=== PATIENT | male | born 1955 | race Caucasian/White ===

== ENCOUNTER 2017-12-18 16:56 | Emergency (ER) | payer MEDICARE, OTHER ==
[~2017-12-18] VITALS: Ht 182.9 cm; Wt 97.1 kg
[~2017-12-18 16:56] MED LIST: ACHD5005 PO; ASEN5TAB7 PO; ASP81TEC PO; ASPI-999 PO; ATOR20TA66 PO; ATOR40TA PO; BACL10TA PO; CLOT15CR6 TOP; DEXL60CA5 PO; DIAZ-345 PO; DIAZ10TA3 PO; GABA-488 PO; GLIM1TAB PO; GLIM4TAB PO; IRON PO; LAMO100T PO; LAMO100T69 PO; LISI10TA2 PO; LISI1TAB PO; METF-380 PO; METF10002 PO; METO10TA3 PO; MULT-517 PO; OMEP20CA12 PO; OMEP20CA6 PO; OMEP20TA2 PO; ONDA8TAB6 PO; PARO20TA4 PO; PARO40TA2 PO; PARO40TA3 PO; RT-FLOV110 INH; SAXA1TBM3 PO; SAXA5TAB PO; SCR1T1 PO; VILA40TA PO; VITA1CAP PO
[2017-12-18] MEDS ORDERED: SULF-222 (17:09)
[2017-12-18] MEDS ORDERED: TOLT2TAB5 (17:09)
--- NOTE | 2017-12-18 17:11 | ED General ---
General Chief Complaint: General Problems/Pain Stated Complaint: MONTES,RT EYE PAIN Nursing Triage Note: c/o R eye pain, headache and R sided chest pain Nursing Sepsis Screen: No Definite Risk Source of Information: Patient Exam Limitations: No Limitations History of Present Illness Date Seen by Provider: December 18, 2017 Time Seen by Provider: 17:08 Initial Comments o ER per EMS with reports of headache, right sided facial and eye pain, area of the right eye appears bloodshot that he just noticed this morning, right chest pain, right abdomen pain. The symptoms of been ongoing for about 4-5 days. No fevers or chills. He does report diffuse body aches. He is being seen by Dr. Jang for some urinary incontinence issues and was started on Bactrim recently for a urinary tract infection, he is still on that. He's had a persistent cough since October of this year after being diagnosed with influenza. He is concerned that these symptoms may be a result of reaction to his Bactrim. Timing/Duration: 1-2 Days Severity: Moderate Associated Systoms: Cough Allergies and Home Medications Allergies Coded Allergies: No Known Drug Allergies (Unverified , 03/17/16) Home Medications Atorvastatin Calcium 20 Mg Tablet, 20 MG PO DAILY, (Reported) Diazepam 10 Mg Tablet, 10 MG PO BID PRN for ANXIETY, (Reported) Gabapentin 300 Mg Capsule, 300 MG PO BID, (Reported) Glimepiride 4 Mg Tablet, 4 MG PO BID, (Reported) LAST FILLED 01/23/16 #60 Lamotrigine 100 Mg Tablet, 100 MG PO BID, (Reported) Lisinopril 10 Mg Tablet, 10 MG PO BID, (Reported) Metformin HCl 1,000 Mg Tablet, 1,000 MG PO BID, (Reported) Omeprazole 20 Mg Capsule.dr, 20 MG PO DAILY, (Reported) Paroxetine HCl 40 Mg Tablet, 40 MG PO DAILY, (Reported) Patient Home Medication List Home Medication List Reviewed: Yes Review of Systems Constitutional: see HPI EENTM: see HPI Respiratory: see HPI, cough, short of breath Cardiovascular: no symptoms reported Genitourinary: no symptoms reported Musculoskeletal: no symptoms reported Skin: no symptoms reported Psychiatric/Neurological: No Symptoms Reported Hematologic/Lymphatic: No Symptoms Reported Immunological/Allergic: no symptoms reported Past Lnllmfz-Vfqkhf-Quwlhb Hx Patient Social History Alcohol Use: Denies Use Recreational Drug Use: No Drug of Choice: 12YRS AGO-COCAINE AND MARIJUANA Smoking Status: Never a Smoker Recent Foreign Travel: No Contact w/Someone Who Travel: No Recent Infectious Disease Expo: No Recent Hopitalizations: No Immunizations Up To Date Tetanus Booster (TDap): Unknown PED Vaccines UTD: Yes Date of Pneumonia Vaccine: Jul 17, 2014 Date of Influenza Vaccine: May 08, 2015 Seasonal Allergies Seasonal Allergies: No Past Medical History Surgeries: Yes (ORAL SURGERY-PULLED 3 TEETH, ) Gallbladder, Tonsillectomy Respiratory: No Cardiac: Yes Hypertension, Syncope Neurological: Yes (HX OF 2 EPISODES OF BLACKING OUT-POSSIBLE SEIZURES 2012) Reproductive Disorders: No Sexually Transmitted Disease: No HIV/AIDS: No Prostate Problems, Kidney Stones Gastrointestinal: Yes Gastroesophageal Reflux Musculoskeletal: Yes (SPINAL STENOSIS) Endocrine: Yes Diabetes, 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 Hearing Impairment: Denies Cancer: Yes Prostate Psychosocial: Yes Anxiety, Depression Integumentary: No Blood Disorders: Yes (HX-TOOK IRON) Adverse Reaction/Blood Tranf: No Family Medical History Cardiovascular disease G8 SISTER Completed stroke 19 FATHER Diabetes mellitus 19 FATHER 19 MOTHER G8 SISTER Hypercholesterolemia G8 BROTHER Hypertension 19 FATHER 19 MOTHER G8 BROTHER Myocardial infarction 19 MOTHER Prostate cancer 19 FATHER Thyroid disease 19 MOTHER G8 SISTER No Pertinent Family Hx Physical Exam Vital Signs Vital Signs - First Documented 12/18/17 17:02 Temp 97.5 Pulse 77 Resp 18 B/P (MAP) 132/73 (92) Pulse Ox 99 Capillary Refill : Less Than 3 Seconds General Appearance: No Apparent Distress, WD/WN Eyes: Left Eye Other (There is no pain in the right eye, there is a small subconjunctival hemorrhage and what appears to be an inflamed pterygium that does not cross the limbus at the medial aspect of the right eye. No hyphema. Extraocular muscles are intact, pupils are equal round and reactive. No facial vesicles or lesions to suggest herpes zoster infection.); Bilateral Eye PERRL, Bilateral Eye EOMI HEENT: PERRL/EOMI, TMs Normal Neck: Full Range of Motion, Normal Inspection Respiratory: Normal Breath Sounds, No Accessory Muscle Use, No Respiratory Distress Cardiovascular: Regular Rate, Rhythm, Normal Peripheral Pulses Gastrointestinal: Normal Bowel Sounds, Non Tender, Soft Extremity: Normal Capillary Refill, Normal Inspection Neurologic/Psychiatric: Alert, Oriented x3, No Motor/Sensory Deficits Skin: Normal Color, Warm/Dry Progress/Results/Core Measures Suspected Sepsis Recent Fever Within 48 Hours: No Infection Criteria Present: None New/Unexplained Altered Menta: No Sepsis Screen: No Definite Risk SIRS Temperature:97.5 Pulse: 77 Respiratory Rate: 18 Laboratory Tests 12/18/17 17:29: White Blood Count 7.8 Blood Pressure 132 /73 Mean: 92 Laboratory Tests 12/18/17 17:29: Creatinine 0.92, Platelet Count 260, Total Bilirubin 0.4 Results/Orders Lab Results Laboratory Tests Test 12/18/17 17:20 12/18/17 17:29 Range/Units Urine Color YELLOW Urine Clarity CLEAR Urine pH 6 5-9 Urine Specific [place] 1.010 L 1.016-1.022 Urine Protein NEGATIVE NEGATIVE Urine Glucose (UA) NEGATIVE NEGATIVE Urine Ketones NEGATIVE NEGATIVE Urine Nitrite NEGATIVE NEGATIVE Urine Bilirubin NEGATIVE NEGATIVE Urine Urobilinogen NORMAL NORMAL MG/DL Urine Leukocyte Esterase NEGATIVE NEGATIVE Urine RBC (Auto) 1+ H NEGATIVE Urine RBC NONE /HPF Urine WBC NONE /HPF Urine Crystals NONE /LPF Urine Bacteria NEGATIVE /HPF Urine Casts NONE /LPF Urine Mucus NEGATIVE /LPF Urine Culture Indicated NO White Blood Count 7.8 4.3-11.0 10^3/uL Red Blood Count 4.49 4.35-5.85 10^6/uL Hemoglobin 9.9 L 13.3-17.7 G/DL Hematocrit 32 L 40-54 % Mean Corpuscular Volume 71 L 80-99 FL Mean Corpuscular Hemoglobin 22 L 25-34 PG Mean Corpuscular Hemoglobin Concent 31 L 32-36 G/DL Red Cell Distribution Width 17.8 H 10.0-14.5 % Platelet Count 260 130-400 10^3/uL Mean Platelet Volume 10.7 H 7.4-10.4 FL Neutrophils (%) (Auto) 73 42-75 % Lymphocytes (%) (Auto) 15 12-44 % Monocytes (%) (Auto) 9 0-12 % Eosinophils (%) (Auto) 2 0-10 % Basophils (%) (Auto) 1 0-10 % Neutrophils # (Auto) 5.7 1.8-7.8 X 10^3 Lymphocytes # (Auto) 1.2 1.0-4.0 X 10^3 Monocytes # (Auto) 0.7 0.0-1.0 X 10^3 Eosinophils # (Auto) 0.2 0.0-0.3 10^3/uL Basophils # (Auto) 0.0 0.0-0.1 10^3/uL Sodium Level 136 135-145 MMOL/L Potassium Level 4.3 3.6-5.0 MMOL/L Chloride Level 106 98-107 MMOL/L Carbon Dioxide Level 20 L 21-32 MMOL/L Anion Gap 10 5-14 MMOL/L Blood Urea Nitrogen 15 7-18 MG/DL Creatinine 0.92 0.60-1.30 MG/DL Estimat Glomerular Filtration Rate > 60 BUN/Creatinine Ratio 16 Glucose Level 168 H 70-105 MG/DL Calcium Level 9.6 8.5-10.1 MG/DL Total Bilirubin 0.4 0.1-1.0 MG/DL Aspartate Amino Transf (AST/SGOT) 36 H 5-34 U/L Alanine Aminotransferase (ALT/SGPT) 40 0-55 U/L Alkaline Phosphatase 112 40-136 U/L Total Protein 6.9 6.4-8.2 GM/DL Albumin 3.9 3.2-4.5 GM/DL My Orders Orders - INESSA NEWTON [employer] Cbc With Automated Diff (12/18/17 17:06) Comprehensive Metabolic Panel (12/18/17 17:06) Ua Culture If Indicated (12/18/17 17:06) Chest Pa/Lat (2 View) (12/18/17 17:06) Tetracaine 0.5% Ophth Gala Sdv (Tetracai (12/18/17 17:15) Vital Signs/I&O 12/18/17 17:02 Temp 97.5 Pulse 77 Resp 18 B/P (MAP) 132/73 (92) Pulse Ox 99 Capillary Refill : Less Than 3 Seconds Blood Pressure Mean: 92 Departure Communication (Admissions) The right intraocular pressure is 14 and the left is 22. Impression Primary Impression: Inflamed pterygium Additional Impression: Right sided pain of chest and abdomen Disposition: HOME, SELF-CARE Condition: Stable Departure-Patient Inst. Decision time for Depature: 18:13 Referrals: BRY ROMERO DO (PCP) Primary Care Physician CINDY RUSH (Family) Primary Care Physician Patient Instructions: Pterygium (DC) Add. Discharge Instructions: 1. Follow-up with your eye doctor this week for recheck. Return to ER for any worsening or recurrent symptoms. Take the eyedrops as directed for no longer than 4 days starting tomorrow. All discharge instructions reviewed with patient and/or family. Voiced understanding. Scripts Ketorolac Tromethamine (Acular) 5 Ml Drops 1 DROP OP BID, #1 DROPS Prov: INESSA NEWTON APRN 12/18/17 Copy Copies To 1: JENNIFER JANG MD, PETER J APRN December 18, 2017 17:11
[2017-12-18] MEDS ORDERED: TETRACAINE 0.5% OPHTH SOLN 4 ML BTL (SINGLE DOSE ONLY) OP ONE (17:15)
[2017-12-18 17:39] LABS: BASOPHILS % (AUTO) 1 % (0-10); EOSINOPHILS # (AUTO) 0.2 10^3/uL (0.0-0.3); EOSINOPHILS % (AUTO) 2 % (0-10); HEMATOCRIT 32 % (40-54); HEMOGLOBIN 9.9 G/DL (13.3-17.7); LYMPHOCYTES # (AUTO) 1.2 X 10^3 (1.0-4.0); LYMPHOCYTES % (AUTO) 15 % (12-44); MEAN CORPUSCULAR HEMOGLOBIN 22 PG (25-34); MEAN CORPUSCULAR HGB CONC 31 G/DL (32-36); MEAN CORPUSCULAR VOLUME 71 FL (80-99); MEAN PLATELET VOLUME 10.7 FL (7.4-10.4); MONOCYTES # (AUTO) 0.7 X 10^3 (0.0-1.0); MONOCYTES % (AUTO) 9 % (0-12); NEUTROPHILS # (AUTO) 5.7 X 10^3 (1.8-7.8); NEUTROPHILS % (AUTO) 73 % (42-75); PLATELET COUNT 260 10^3/uL (130-400); RED BLOOD COUNT 4.49 10^6/uL (4.35-5.85); RED CELL DISTRIBUTION WIDTH 17.8 % (10.0-14.5); WHITE BLOOD COUNT 7.8 10^3/uL (4.3-11.0)
[2017-12-18 17:39] LABS: BILIRUBIN,URINE NEGATIVE (NEGATIVE); CLARITY,URINE CLEAR; COLOR,URINE YELLOW; GLUCOSE, URINE (UA) NEGATIVE (NEGATIVE); KETONES,URINE NEGATIVE (NEGATIVE); LEUKOCYTE ESTERASE ,URINE NEGATIVE (NEGATIVE); NITRITE,URINE NEGATIVE (NEGATIVE); PH,URINE 6 (5-9); PROTEIN,URINE NEGATIVE (NEGATIVE); UROBILINOGEN,URINE NORMAL (NORMAL)
[2017-12-18 17:46] LABS: BACTERIA,URINE NEGATIVE /HPF
[2017-12-18 17:55] LABS: ALANINE AMINOTRANSFERASE 40 U/L (0-55); ALBUMIN 3.9 GM/DL (3.2-4.5); ALKALINE PHOSPHATASE 112 U/L (40-136); BILIRUBIN,TOTAL 0.4 MG/DL (0.1-1.0); BUN/CREATININE RATIO 16; CALCIUM 9.6 MG/DL (8.5-10.1); CARBON DIOXIDE 20 MMOL/L (21-32); CHLORIDE 106 MMOL/L (98-107); CREATININE SERUM 0.92 MG/DL (0.60-1.30); GFR ESTIMATED > 60; GLUCOSE 168 MG/DL (70-105); POTASSIUM 4.3 MMOL/L (3.6-5.0); SODIUM 136 MMOL/L (135-145); TOTAL PROTEIN 6.9 GM/DL (6.4-8.2)
--- NOTE | 2017-12-18 17:58 | Diagnostic Imaging Report ---
INDICATION: Right-sided chest pain. EXAMINATION: PA and lateral chest. FINDINGS: Heart size and pulmonary vascularity are normal. Lungs are clear. There are no effusions or pneumothoraces. IMPRESSION: Negative chest. Dictated by: Dictated on workstation # [id number]
[2017-12-18] MEDS ORDERED: KETO5DRO OP (18:15)
[2017-12-18 18:23] VITALS: BP 122/77
== END 2017-12-18 18:24 | disposition home or self-care (01) ==
LOC: EDUNIT# 16:56 → ER 16:57
DX: H11.002 Unspecified pterygium of left eye (principal); R07.89 Other chest pain; R10.9 Unspecified abdominal pain; N39.0 Urinary tract infection, site not specified; I10 Essential (primary) hypertension; K21.9 Gastro-esophageal reflux disease without esophagitis; F41.9 Anxiety disorder, unspecified; F32.9 Major depressive disorder, single episode, unspecified; Z82.49 Family history of ischemic heart disease and other diseases of the circulatory system; Z87.442 Personal history of urinary calculi; Z79.84 Long term (current) use of oral hypoglycemic drugs; Z90.89 Acquired absence of other organs; Z85.46 Personal history of malignant neoplasm of prostate; Z80.8 Family history of malignant neoplasm of other organs or systems
CPT/HCPCS: 36415; 71046; 80053; 81000; 85025; 99283

== ENCOUNTER → 2018-01-09 | Outpatient (CLI) | payer MEDICARE, OTHER ==
[~2018-01-09] MED LIST changes: +KETO5DRO OP; +SULF-222; +TOLT2TAB5
--- NOTE | 2018-01-09 11:37 | Diagnostic Imaging Report ---
PROCEDURE: US abdomen complete. TECHNIQUE: Multiple real-time grayscale images were obtained over the abdomen in various projections. INDICATION: Abdominal pain and possible abdominal mass. COMPARISON: None. FINDINGS: There is diffuse hepatic steatosis. No focal hepatic mass is seen. The common bile duct is not well demonstrated however no gross biliary dilatation is suspected. The pancreas is not well seen. The gallbladder is absent. The spleen measures 12.4 cm in length and appears unremarkable. The right kidney measures 10.6 cm in length and the left kidney measures 11.9 cm in length. Both kidneys appear unremarkable. The abdominal aorta is not well visualized. Inferior vena cava not well seen. There is no ascites or sonographic Zabala's sign. No evidence of hernia or abdominal mass is suspected. IMPRESSION: 1. Diffuse hepatic steatosis. 2. Status post cholecystectomy. 3. No additional abnormality is seen. Abdominal aorta, pancreas, and common bile ducts are not well visualized. 4. No abnormality to account for clinical abdominal mass. Dictated by: Dictated on workstation # [id number]
== END ==
LOC: RAD 08:16
PROVIDERS: ATTEND Nurse Practitioner Family
DX: K76.0 Fatty (change of) liver, not elsewhere classified (principal); R19.09 Other intra-abdominal and pelvic swelling, mass and lump; Z90.49 Acquired absence of other specified parts of digestive tract
CPT/HCPCS: 76700

== ENCOUNTER 2018-05-01 11:39 | Outpatient (RCR) | payer MEDICARE, OTHER ==
[2018-03-22 14:44] LABS: BASOPHILS % (AUTO) 1 % (0-10); EOSINOPHILS % (AUTO) 0 % (0-10); HEMATOCRIT 40 % (40-54); HEMOGLOBIN 12.6 G/DL (13.3-17.7); LYMPHOCYTES # (AUTO) 1.6 X 10^3 (1.0-4.0); LYMPHOCYTES % (AUTO) 31 % (12-44); MEAN CORPUSCULAR HEMOGLOBIN 23 PG (25-34); MEAN CORPUSCULAR HGB CONC 31 G/DL (32-36); MEAN CORPUSCULAR VOLUME 74 FL (80-99); MEAN PLATELET VOLUME 10.4 FL (7.4-10.4); MONOCYTES # (AUTO) 0.5 X 10^3 (0.0-1.0); MONOCYTES % (AUTO) 10 % (0-12); NEUTROPHILS # (AUTO) 3.1 X 10^3 (1.8-7.8); NEUTROPHILS % (AUTO) 59 % (42-75); PLATELET COUNT 242 10^3/uL (130-400); RED BLOOD COUNT 5.44 10^6/uL (4.35-5.85); RED CELL DISTRIBUTION WIDTH 21.8 % (10.0-14.5); WHITE BLOOD COUNT 5.3 10^3/uL (4.3-11.0)
[2018-03-22 15:02] LABS: ALANINE AMINOTRANSFERASE 20 U/L (0-55); ALBUMIN 4.5 GM/DL (3.2-4.5); ALKALINE PHOSPHATASE 88 U/L (40-136); BILIRUBIN,TOTAL 0.4 MG/DL (0.1-1.0); BUN/CREATININE RATIO 12; CALCIUM 9.5 MG/DL (8.5-10.1); CARBON DIOXIDE 25 MMOL/L (21-32); CHLORIDE 104 MMOL/L (98-107); CREATININE SERUM 1.02 MG/DL (0.60-1.30); GFR ESTIMATED > 60; GLUCOSE 100 MG/DL (70-105); POTASSIUM 3.9 MMOL/L (3.6-5.0); SODIUM 138 MMOL/L (135-145); TOTAL PROTEIN 7.6 GM/DL (6.4-8.2)
[~2018-05-01 11:39] MED LIST changes: +METF-399 PO; -METF10002 PO
[2018-05-01 11:53] LABS: BASOPHILS % (AUTO) 1 % (0-10); EOSINOPHILS # (AUTO) 0.2 10^3/uL (0.0-0.3); EOSINOPHILS % (AUTO) 3 % (0-10); HEMATOCRIT 39 % (40-54); HEMOGLOBIN 13.1 G/DL (13.3-17.7); LYMPHOCYTES # (AUTO) 1.3 X 10^3 (1.0-4.0); LYMPHOCYTES % (AUTO) 26 % (12-44); MEAN CORPUSCULAR HEMOGLOBIN 26 PG (25-34); MEAN CORPUSCULAR HGB CONC 33 G/DL (32-36); MEAN CORPUSCULAR VOLUME 79 FL (80-99); MEAN PLATELET VOLUME 10.6 FL (7.4-10.4); MONOCYTES # (AUTO) 0.4 X 10^3 (0.0-1.0); MONOCYTES % (AUTO) 8 % (0-12); NEUTROPHILS # (AUTO) 3.1 X 10^3 (1.8-7.8); NEUTROPHILS % (AUTO) 63 % (42-75); PLATELET COUNT 188 10^3/uL (130-400); RED BLOOD COUNT 4.98 10^6/uL (4.35-5.85); RED CELL DISTRIBUTION WIDTH 18.1 % (10.0-14.5)
[2018-05-01 12:18] LABS: ALANINE AMINOTRANSFERASE 23 U/L (0-55); ALKALINE PHOSPHATASE 85 U/L (40-136); BILIRUBIN,TOTAL 0.4 MG/DL (0.1-1.0); BUN/CREATININE RATIO 10; CALCIUM 9.3 MG/DL (8.5-10.1); CARBON DIOXIDE 24 MMOL/L (21-32); CHLORIDE 105 MMOL/L (98-107); CREATININE SERUM 1.02 MG/DL (0.60-1.30); GFR ESTIMATED > 60; GLUCOSE 196 MG/DL (70-105); POTASSIUM 4.4 MMOL/L (3.6-5.0); SODIUM 138 MMOL/L (135-145); TOTAL PROTEIN 6.9 GM/DL (6.4-8.2)
== END 2018-05-10 12:52 | disposition home or self-care (01) ==
LOC: ONC 11:39
PROVIDERS: ATTEND Internal Medicine Hematology & Oncology
DX: E61.1 Iron deficiency (principal); Z85.46 Personal history of malignant neoplasm of prostate; K29.50 Unspecified chronic gastritis without bleeding; K44.9 Diaphragmatic hernia without obstruction or gangrene; K76.0 Fatty (change of) liver, not elsewhere classified; E11.9 Type 2 diabetes mellitus without complications; E66.9 Obesity, unspecified; I10 Essential (primary) hypertension; F10.21 Alcohol dependence, in remission
CPT/HCPCS: 36415; 80053; 82274; 82728; 83540; 85025; 99214

== ENCOUNTER 2018-07-11 09:04 | Outpatient (RCR) | payer MEDICARE, OTHER ==
[2018-06-13 10:36] LABS: BASOPHILS % (AUTO) 1 % (0-10); EOSINOPHILS # (AUTO) 0.2 10^3/uL (0.0-0.3); EOSINOPHILS % (AUTO) 3 % (0-10); HEMATOCRIT 44 % (40-54); HEMOGLOBIN 14.6 G/DL (13.3-17.7); LYMPHOCYTES # (AUTO) 1.4 X 10^3 (1.0-4.0); LYMPHOCYTES % (AUTO) 27 % (12-44); MEAN CORPUSCULAR HEMOGLOBIN 27 PG (25-34); MEAN CORPUSCULAR HGB CONC 33 G/DL (32-36); MEAN CORPUSCULAR VOLUME 81 FL (80-99); MEAN PLATELET VOLUME 11.3 FL (7.4-10.4); MONOCYTES # (AUTO) 0.4 X 10^3 (0.0-1.0); MONOCYTES % (AUTO) 7 % (0-12); NEUTROPHILS # (AUTO) 3.3 X 10^3 (1.8-7.8); NEUTROPHILS % (AUTO) 62 % (42-75); PLATELET COUNT 179 10^3/uL (130-400); RED BLOOD COUNT 5.44 10^6/uL (4.35-5.85); RED CELL DISTRIBUTION WIDTH 15.6 % (10.0-14.5); WHITE BLOOD COUNT 5.3 10^3/uL (4.3-11.0)
[2018-06-13 11:01] LABS: ALANINE AMINOTRANSFERASE 23 U/L (0-55); ALBUMIN 4.1 GM/DL (3.2-4.5); ALKALINE PHOSPHATASE 103 U/L (40-136); BILIRUBIN,TOTAL 0.3 MG/DL (0.1-1.0); BUN/CREATININE RATIO 17; CALCIUM 10.2 MG/DL (8.5-10.1); CARBON DIOXIDE 20 MMOL/L (21-32); CHLORIDE 105 MMOL/L (98-107); GFR ESTIMATED > 60; GLUCOSE 201 MG/DL (70-105); POTASSIUM 4.7 MMOL/L (3.6-5.0); SODIUM 137 MMOL/L (135-145); TOTAL PROTEIN 7.2 GM/DL (6.4-8.2)
[2018-07-06 08:54] LABS: BASOPHILS % (AUTO) 1 % (0-10); EOSINOPHILS # (AUTO) 0.2 10^3/uL (0.0-0.3); EOSINOPHILS % (AUTO) 3 % (0-10); HEMATOCRIT 43 % (40-54); HEMOGLOBIN 13.8 G/DL (13.3-17.7); LYMPHOCYTES # (AUTO) 1.5 X 10^3 (1.0-4.0); LYMPHOCYTES % (AUTO) 25 % (12-44); MEAN CORPUSCULAR HEMOGLOBIN 27 PG (25-34); MEAN CORPUSCULAR HGB CONC 33 G/DL (32-36); MEAN CORPUSCULAR VOLUME 82 FL (80-99); MEAN PLATELET VOLUME 11.3 FL (7.4-10.4); MONOCYTES # (AUTO) 0.5 X 10^3 (0.0-1.0); MONOCYTES % (AUTO) 9 % (0-12); NEUTROPHILS # (AUTO) 3.8 X 10^3 (1.8-7.8); NEUTROPHILS % (AUTO) 63 % (42-75); PLATELET COUNT 211 10^3/uL (130-400); RED BLOOD COUNT 5.18 10^6/uL (4.35-5.85); RED CELL DISTRIBUTION WIDTH 15.2 % (10.0-14.5)
[2018-07-06 09:17] LABS: ALANINE AMINOTRANSFERASE 23 U/L (0-55); ALBUMIN 4.1 GM/DL (3.2-4.5); ALKALINE PHOSPHATASE 106 U/L (40-136); BILIRUBIN,TOTAL 0.4 MG/DL (0.1-1.0); BUN/CREATININE RATIO 18; CALCIUM 9.9 MG/DL (8.5-10.1); CARBON DIOXIDE 22 MMOL/L (21-32); CHLORIDE 106 MMOL/L (98-107); GFR ESTIMATED > 60; GLUCOSE 147 MG/DL (70-105); POTASSIUM 4.3 MMOL/L (3.6-5.0); SODIUM 139 MMOL/L (135-145); TOTAL PROTEIN 7.2 GM/DL (6.4-8.2)
[2018-07-24] MEDS ORDERED: OMEP40CA36 PO (16:04)
[2018-07-24] MEDS ORDERED: ASPI-586 PO (16:04)
[2018-07-24] MEDS ORDERED: DIAZ5TAB3 PO (16:04)
[2018-07-25] MEDS ORDERED: PANT40TA2 PO (18:06)
== END 2018-08-08 | disposition home or self-care (01) ==
LOC: ONC 09:04
PROVIDERS: ATTEND Internal Medicine Hematology & Oncology
DX: E61.1 Iron deficiency (principal); Z85.46 Personal history of malignant neoplasm of prostate; K29.50 Unspecified chronic gastritis without bleeding; K44.9 Diaphragmatic hernia without obstruction or gangrene; K76.0 Fatty (change of) liver, not elsewhere classified; E11.9 Type 2 diabetes mellitus without complications; E66.9 Obesity, unspecified; I10 Essential (primary) hypertension; F10.21 Alcohol dependence, in remission
CPT/HCPCS: 36415; 80053; 82728; 83540; 83550; 85025; 99213

== ENCOUNTER 2018-07-24 15:45 | Outpatient (CLI) | payer MEDICARE, OTHER ==
[~2018-07-24] VITALS: Ht 182.9 cm; Wt 99.8 kg
[2018-07-24] MEDS ORDERED: OMEP40CA36 PO (16:04)
[2018-07-24] MEDS ORDERED: ASPI-586 PO (16:04)
[2018-07-24] MEDS ORDERED: DIAZ5TAB3 PO (16:04)
[2018-07-25] MEDS ORDERED: PANT40TA2 PO (18:06)
== END 2018-07-24 16:15 | disposition home or self-care (01) ==
LOC: PREOP 15:45
PROVIDERS: ATTEND Surgery
DX: Z01.818 Encounter for other preprocedural examination (principal)

== ENCOUNTER 2018-07-25 14:15 | Day surgery (SDC) | payer MEDICARE, OTHER ==
[~2018-07-25] VITALS: Ht 182.9 cm; Wt 99.8 kg
[~2018-07-25 14:15] MED LIST changes: +ASPI-586 PO; +DIAZ5TAB3 PO; +OMEP40CA36 PO
[2018-07-25 14:30] VITALS: BP 145/101
[2018-07-25] MEDS ORDERED: LACTATED RINGERS 1,000 ML IV ONE (14:34)
[2018-07-25] MEDS ORDERED: LACTATED RINGERS 1,000 ML IV STA (14:42)
[2018-07-25] MEDS ORDERED: HURRICAINE EXT TUBE (BENZOCAINE) XX PRN (14:45)
--- NOTE | 2018-07-25 15:20 | Progress Note-Pre Operative ---
Pre-Operative Progress Note H&P Reviewed The H&P was reviewed, patient examined and no changes noted. Date Seen by Provider: Jul 25, 2018 Time Seen by Provider: 15:19 Date H&P Reviewed: Jul 25, 2018 Time H&P Reviewed: 15:19 Pre-Operative Diagnosis: iron def anemia, epigastric abdominal pain BRITTNEY TRINIDAD DO Jul 25, 2018 15:20
[2018-07-25 15:49] LABS: AMPHETAMINE SCREEN, URINE NEGATIVE (NEGATIVE); BARBITURATE SCREEN URINE NEGATIVE (NEGATIVE); BENZODIAZEPINES SCREEN URINE POSITIVE (NEGATIVE); CANNABINOID SCREEN, URINE NEGATIVE (NEGATIVE); COCAINE SCREEN URINE NEGATIVE (NEGATIVE); METHADONE STAT NEGATIVE (NEGATIVE); METHAMPHETAMINE SCREEN URINE S NEGATIVE (NEGATIVE); OPIATE SCREEN URINE NEGATIVE (NEGATIVE); OXYCODONE STAT NEGATIVE (NEGATIVE); PROPOXYPHENE STAT NEGATIVE (NEGATIVE); TRICYCLIC ANTIDEPRESSANTS SCRE NEGATIVE (NEGATIVE)
[2018-07-25] MEDS ORDERED: PROPOFOL INJECTION 50 ML IV ONE ×2 (17:24→17:42)
[2018-07-25] MEDS ORDERED: MIDAZOLAM 2 MG/2 ML (VERSED) VIAL ONE (17:24)
[2018-07-25 18:00] VITALS: BP 125/71
--- NOTE | 2018-07-25 18:05 | Progress Note-Post Operative ---
Post-Operative Progess Note Surgeon (s)/[employer] (s) Surgeon BRITTNEY TRINIDAD DO [employer]: na Pre-Operative Diagnosis iron def anemia, epigastric abdominal pain Post-Operative Diagnosis healing antral ulcer, hiatal hernia, ? huertas's, normal colon Procedure & Operative Findings Date of Procedure 07/25/18 Procedure Performed/Findings egd c biopsies, colonoscopy Anesthesia Type per pc network technician Estimated Blood Loss Estimated blood loss (mL): none Specimens/Packing Specimens Removed antrum, ge BRITTNEY TRINIDAD DO Jul 25, 2018 18:05
[2018-07-25] MEDS ORDERED: PANT40TA2 PO (18:06)
--- NOTE | 2018-07-25 18:07 | Discharge Inst-Simple/Standard ---
Discharge Inst-Standard Discharge Medications New, Converted or Re-Newed RX: Transmitted to Pharmacy Patient Instructions/Follow Up Plan of Care/Instructions/FU: 2 weeks Yon Activity as Tolerated: Yes Discharge Diet: Regular Diet BRITTNEY TRINIDAD DO Jul 25, 2018 18:07
--- NOTE | 2018-07-25 18:11 | Anesthesia-General Post-Op ---
MAC Patient Condition Mental Status/LOC: Same as Preop Cardiovascular: Satisfactory Nausea/Vomiting: Absent Respiratory: Satisfactory Pain: Controlled Complications: Absent Post Op Complications Complications None Follow Up Care/Instructions Patient Instructions None needed. Anesthesiology Discharge Order Discharge Order Patient is doing well, no complaints, stable vital signs, no apparent adverse anesthesia problems. No complications reported per nursing. KRISTY VELAZCO CRNA Jul 25, 2018 18:11
[2018-07-25 18:30] VITALS: BP 151/94
[2018-07-25 18:35] VITALS: BP 151/94
--- NOTE | 2018-07-26 05:40 | OPERATIVE REPORT ---
DATE OF SERVICE: 07/25/2018 PREOPERATIVE DIAGNOSIS: Iron deficiency anemia, epigastric abdominal pain. POSTOPERATIVE DIAGNOSIS: Healing antral ulcer, hiatal hernia, questionable Jiang's, normal colon. PROCEDURE: EGD with biopsies, colonoscopy. SURGEON: Brittnye Marvin DO ANESTHESIA: Per PLANT UTILITY PERSON. ESTIMATED BLOOD LOSS: None. COMPLICATIONS: None. INDICATIONS: The patient is a 62-year-old male with iron deficiency anemia and epigastric abdominal pain. He understands risks and benefits of procedure and wished to proceed with procedure. Consent was signed and on the chart. DESCRIPTION OF PROCEDURE: The patient was taken to the endoscopy suite, placed in left lateral prone position. Timeout was performed. Scope was inserted in mouth, down the esophagus, stomach and into the duodenum without difficulty. There were no polyps, masses or ulcerations of the duodenum. Scope was slowly retracted back into the stomach, which was insufflated. The appearance of some healing antral ulcers was present. Biopsy of the antrum was obtained. Scope was retroflexed noting just a hiatal hernia. Scope was returned to its normal position, slowly withdrawn to the distal esophagus, which had a questionable Jiang's. Biopsy was obtained. Scope was then slowly retracted back to completely remove, noting no other pathology. Digital rectal exam was performed. There were no palpable polyps, masses or ulcerations. Scope was inserted in the rectum and advanced all the way to the cecum with minimal difficulty. Prep was adequate with irrigation and suction. Scope was then slowly retracted back. There were no polyps, mass or ulcerations within the cecum, ascending, transverse, descending and sigmoid colon. Once in the rectum, scope was retroflexed noting no other pathology. Scope was returned to its normal position, slowly withdrawn until completely removed. The patient tolerated procedure well without complications, taken to recovery room in stable condition. RECOMMENDATIONS: The patient will be started on Protonix 40 mg daily. We will stop the omeprazole. We will have him follow up on biopsies. The patient will need repeat colonoscopy in 10 years unless family history of colon cancer, which was then, be in 5 years. If he has any problems prior to that, he should be reevaluated at that time. Job ID: [id number] DocumentID: [id number] Dictated Date: 07/25/2018 18:10:50 Care Director Date: 07/26/2018 05:40:06 Dictated By: BRITTNEY MARVIN DO
== END 2018-07-25 18:38 | disposition home or self-care (01) ==
LOC: ENDO 14:15
PROVIDERS: ATTEND Surgery
DX: K25.7 Chronic gastric ulcer without hemorrhage or perforation (principal); K21.9 Gastro-esophageal reflux disease without esophagitis; K44.9 Diaphragmatic hernia without obstruction or gangrene; D50.9 Iron deficiency anemia, unspecified; I10 Essential (primary) hypertension; E11.9 Type 2 diabetes mellitus without complications; Z79.82 Long term (current) use of aspirin; Z79.84 Long term (current) use of oral hypoglycemic drugs; Z79.899 Other long term (current) drug therapy
CPT/HCPCS: 80306; 82962; 88305

== ENCOUNTER → 2018-08-16 | Outpatient (CLI) | payer MEDICARE, OTHER ==
[~2018-08-16] MED LIST changes: +PANT40TA2 PO
[2018-08-16 09:35] LABS: ALANINE AMINOTRANSFERASE 25 U/L (0-55); ALBUMIN 4.2 GM/DL (3.2-4.5); ALKALINE PHOSPHATASE 89 U/L (40-136); BILIRUBIN,TOTAL 0.5 MG/DL (0.1-1.0); BUN/CREATININE RATIO 14; CALCIUM 9.4 MG/DL (8.5-10.1); CARBON DIOXIDE 25 MMOL/L (21-32); CHLORIDE 107 MMOL/L (98-107); CHOLESTEROL 178 MG/DL (< 200); CREATININE SERUM 1.08 MG/DL (0.60-1.30); GFR ESTIMATED > 60; GLUCOSE 138 MG/DL (70-105); HDL CHOLESTEROL 41 MG/DL (40-60); SODIUM 141 MMOL/L (135-145); TOTAL PROTEIN 7.2 GM/DL (6.4-8.2); TRIGLYCERIDES 101 MG/DL (<150); VLDL CHOLESTEROL 20 MG/DL (5-40)
== END ==
LOC: LAB 08:40
PROVIDERS: ATTEND Nurse Practitioner Primary Care
DX: E11.21 Type 2 diabetes mellitus with diabetic nephropathy (principal); I10 Essential (primary) hypertension
CPT/HCPCS: 36415; 80053; 80061

== ENCOUNTER 2018-08-22 09:04 | Outpatient (RCR) | payer MEDICARE, OTHER ==
[2018-08-16 09:12] LABS: BASOPHILS % (AUTO) 1 % (0-10); EOSINOPHILS # (AUTO) 0.2 10^3/uL (0.0-0.3); EOSINOPHILS % (AUTO) 3 % (0-10); HEMATOCRIT 41 % (40-54); HEMOGLOBIN 13.2 G/DL (13.3-17.7); LYMPHOCYTES # (AUTO) 1.3 X 10^3 (1.0-4.0); LYMPHOCYTES % (AUTO) 21 % (12-44); MEAN CORPUSCULAR HEMOGLOBIN 27 PG (25-34); MEAN CORPUSCULAR HGB CONC 32 G/DL (32-36); MEAN CORPUSCULAR VOLUME 83 FL (80-99); MONOCYTES # (AUTO) 0.5 X 10^3 (0.0-1.0); MONOCYTES % (AUTO) 8 % (0-12); NEUTROPHILS % (AUTO) 68 % (42-75); PLATELET COUNT 208 10^3/uL (130-400); RED CELL DISTRIBUTION WIDTH 14.6 % (10.0-14.5)
[2018-08-16 09:40] LABS: BUN/CREATININE RATIO 14; CARBON DIOXIDE 25 MMOL/L (21-32); CHLORIDE 107 MMOL/L (98-107); CREATININE SERUM 1.08 MG/DL (0.60-1.30); GFR ESTIMATED > 60; SODIUM 141 MMOL/L (135-145)
[2018-08-16 09:41] LABS: ALANINE AMINOTRANSFERASE 25 U/L (0-55); ALBUMIN 4.2 GM/DL (3.2-4.5); ALKALINE PHOSPHATASE 89 U/L (40-136); BILIRUBIN,TOTAL 0.5 MG/DL (0.1-1.0); CALCIUM 9.4 MG/DL (8.5-10.1); GLUCOSE 138 MG/DL (70-105); TOTAL PROTEIN 7.2 GM/DL (6.4-8.2)
== END 2018-11-14 | disposition home or self-care (01) ==
LOC: ONC 09:04
PROVIDERS: ATTEND Internal Medicine Hematology & Oncology
DX: E61.1 Iron deficiency (principal); Z85.46 Personal history of malignant neoplasm of prostate; K29.50 Unspecified chronic gastritis without bleeding; K44.9 Diaphragmatic hernia without obstruction or gangrene; E11.21 Type 2 diabetes mellitus with diabetic nephropathy; I10 Essential (primary) hypertension; K76.0 Fatty (change of) liver, not elsewhere classified; F10.21 Alcohol dependence, in remission; E66.9 Obesity, unspecified; Z68.30 Body mass index [BMI] 30.0-30.9, adult; Z79.82 Long term (current) use of aspirin; Z79.84 Long term (current) use of oral hypoglycemic drugs; Z79.899 Other long term (current) drug therapy
CPT/HCPCS: 36415; 80053; 80061; 82728; 83540; 85025; 99213

== ENCOUNTER → 2018-12-18 | Outpatient (CLI) | payer MEDICARE, OTHER ==
[~2018-12-18] MED LIST changes: +BARIUM SUSPENSION 105% (LIQUID POLIBAR PLUS) 240 ML/DOSE PO ONE; +BARIUM SUSPENSION 60% (LIQUID EZ PAQUE) 240 ML DOSE PO ONE
--- NOTE | 2018-12-18 12:11 | Diagnostic Imaging Report ---
Indication: Dysphasia. Patient ingested effervescent crystals as well as thin and thick barium and imaging of the esophagus was performed. One minute 36 seconds of fluoroscopy was utilized. Preliminary radiograph of the chest is unremarkable. The esophagus has a fairly smooth contour. No mass or stricture is identified. No gastroesophageal reflux was demonstrated. There is a small sliding-type hiatal hernia. Impression: Small sliding-type hiatal hernia. The study is otherwise unremarkable. Dictated by: Dictated on workstation # [id number]
== END ==
LOC: RAD 10:53
PROVIDERS: ATTEND Surgery
DX: K44.9 Diaphragmatic hernia without obstruction or gangrene (principal)
CPT/HCPCS: 74220

== ENCOUNTER 2019-03-27 09:43 | Outpatient (RCR) | payer MEDICARE, OTHER ==
[2019-02-13 10:17] LABS: BASOPHILS % (AUTO) 0 % (0-10); EOSINOPHILS % (AUTO) 0 % (0-10); HEMATOCRIT 33 % (40-54); HEMOGLOBIN 9.8 G/DL (13.3-17.7); LYMPHOCYTES # (AUTO) 0.7 X 10^3 (1.0-4.0); LYMPHOCYTES % (AUTO) 13 % (12-44); MEAN CORPUSCULAR HEMOGLOBIN 21 PG (25-34); MEAN CORPUSCULAR HGB CONC 30 G/DL (32-36); MEAN CORPUSCULAR VOLUME 72 FL (80-99); MEAN PLATELET VOLUME 10.5 FL (7.4-10.4); MONOCYTES # (AUTO) 0.3 X 10^3 (0.0-1.0); MONOCYTES % (AUTO) 7 % (0-12); NEUTROPHILS # (AUTO) 4.1 X 10^3 (1.8-7.8); NEUTROPHILS % (AUTO) 80 % (42-75); PLATELET COUNT 207 10^3/uL (130-400); RED CELL DISTRIBUTION WIDTH 17.5 % (10.0-14.5); WHITE BLOOD COUNT 5.1 10^3/uL (4.3-11.0)
[2019-02-13 10:32] LABS: ALANINE AMINOTRANSFERASE 39 U/L (0-55); ALKALINE PHOSPHATASE 100 U/L (40-136); BILIRUBIN,TOTAL 0.4 MG/DL (0.1-1.0); BUN/CREATININE RATIO 15; CALCIUM 8.9 MG/DL (8.5-10.1); CARBON DIOXIDE 23 MMOL/L (21-32); CHLORIDE 101 MMOL/L (98-107); GFR ESTIMATED > 60; GLUCOSE 290 MG/DL (70-105); POTASSIUM 4.2 MMOL/L (3.6-5.0); SODIUM 135 MMOL/L (135-145); TOTAL PROTEIN 6.7 GM/DL (6.4-8.2)
[2019-03-19 09:14] LABS: BASOPHILS % (AUTO) 1 % (0-10); EOSINOPHILS % (AUTO) 1 % (0-10); HEMATOCRIT 46 % (40-54); HEMOGLOBIN 14.6 G/DL (13.3-17.7); LYMPHOCYTES # (AUTO) 1.1 X 10^3 (1.0-4.0); LYMPHOCYTES % (AUTO) 17 % (12-44); MEAN CORPUSCULAR HEMOGLOBIN 25 PG (25-34); MEAN CORPUSCULAR HGB CONC 32 G/DL (32-36); MEAN CORPUSCULAR VOLUME 77 FL (80-99); MEAN PLATELET VOLUME 10.7 FL (7.4-10.4); MONOCYTES # (AUTO) 0.5 X 10^3 (0.0-1.0); MONOCYTES % (AUTO) 8 % (0-12); NEUTROPHILS # (AUTO) 4.8 X 10^3 (1.8-7.8); NEUTROPHILS % (AUTO) 74 % (42-75); PLATELET COUNT 228 10^3/uL (130-400); RED CELL DISTRIBUTION WIDTH 26.5 % (10.0-14.5); WHITE BLOOD COUNT 6.5 10^3/uL (4.3-11.0)
[2019-03-19 09:31] LABS: ALANINE AMINOTRANSFERASE 26 U/L (0-55); ALBUMIN 4.5 GM/DL (3.2-4.5); ALKALINE PHOSPHATASE 95 U/L (40-136); BILIRUBIN,TOTAL 0.8 MG/DL (0.1-1.0); BUN/CREATININE RATIO 14; CALCIUM 9.8 MG/DL (8.5-10.1); CARBON DIOXIDE 22 MMOL/L (21-32); CHLORIDE 106 MMOL/L (98-107); GFR ESTIMATED > 60; GLUCOSE 144 MG/DL (70-105); POTASSIUM 4.5 MMOL/L (3.6-5.0); SODIUM 139 MMOL/L (135-145); TOTAL PROTEIN 7.8 GM/DL (6.4-8.2)
[~2019-03-27 09:43] MED LIST changes: -BARIUM SUSPENSION 105% (LIQUID POLIBAR PLUS) 240 ML/DOSE PO ONE; -BARIUM SUSPENSION 60% (LIQUID EZ PAQUE) 240 ML DOSE PO ONE; +FERRIC CARBOXYMALTOSE (CANCER) 750 MG in NS (IVPB) CANCER CENTER 250 ML IV SCH; -OMEP20CA12 PO; +OMEP20CA13 PO
== END 2019-05-14 | disposition home or self-care (01) ==
LOC: ONC 09:43
PROVIDERS: ATTEND Internal Medicine Hematology & Oncology
DX: E61.1 Iron deficiency (principal); Z85.46 Personal history of malignant neoplasm of prostate; K29.50 Unspecified chronic gastritis without bleeding; K44.9 Diaphragmatic hernia without obstruction or gangrene; K76.0 Fatty (change of) liver, not elsewhere classified; E11.21 Type 2 diabetes mellitus with diabetic nephropathy; E66.9 Obesity, unspecified; I10 Essential (primary) hypertension; F10.21 Alcohol dependence, in remission
CPT/HCPCS: 36415; 80053; 82728; 83540; 85025; 96365; 99213

== ENCOUNTER → 2019-08-14 | Outpatient (CLI) | payer MEDICARE ==
[~2019-08-14] MED LIST changes: -FERRIC CARBOXYMALTOSE (CANCER) 750 MG in NS (IVPB) CANCER CENTER 250 ML IV SCH
--- NOTE | 2019-08-14 15:13 | Diagnostic Imaging Report ---
PROCEDURE: MR imaging cervical spine without contrast. TECHNIQUE: Multiplanar, multisequence MR imaging of the cervical spine was performed without contrast. INDICATION: Fall and neck injury six weeks ago. COMPARISON: No prior studies are available for comparison. FINDINGS: Curvature and alignment of the cervical spine is normal apart from minimal retrolisthesis of C4 on C5. The marrow signal intensity is unremarkable. No geographic marrow lesion is seen. Multilevel degenerative disc disease is noted with variable disc space narrowing and desiccation. The cervical cord does show normal homogeneous signal intensity. No cord edema is identified. Craniocervical junction is unremarkable. C2-C3: Central canal and neural foramina are widely patent. C3-C4: Endplate osteophytes flatten the ventral thecal sac. No significant central canal or neural foraminal stenosis is seen. C4-C5: Broad-based disc/osteophyte complex does flatten the ventral thecal sac. There is [id number] central canal narrowing. There is also significant left neural foraminal stenosis. Right neural foramen is patent. C5-C6: Broad-based disc/osteophyte complex flattens the ventral thecal sac producing [id number] central canal narrowing. There appears to be moderate bilateral neural foraminal stenosis. C6-C7: Broad-based disc/osteophyte complex indents the ventral thecal sac and produces a moderate central canal narrowing. There is [id number] bilateral neural foraminal stenosis. C7-T1: Broad-based disc/osteophyte complex flattens the ventral thecal sac. There is mild central canal narrowing. Moderate bilateral neural foraminal stenosis is seen. Paraspinous tissues are unremarkable. IMPRESSION: Multilevel cervical spondylosis with multilevel central canal and neural foraminal stenosis described level by level above. Dictated by: Dictated on workstation # [id number]
== END ==
LOC: RAD 14:11
PROVIDERS: ATTEND Nurse Practitioner Primary Care
DX: M48.03 Spinal stenosis, cervicothoracic region (principal); M47.812 Spondylosis without myelopathy or radiculopathy, cervical region; M25.78 Osteophyte, vertebrae
CPT/HCPCS: 72141

== ENCOUNTER → 2019-08-27 | Outpatient (CLI) | payer MEDICARE, OTHER ==
[~2019-08-27] MED LIST changes: -DIAZ5TAB3 PO; +DIAZ5TAB49 PO; +GLIM4TAB3 PO; -LAMO100T PO; +LAMO100T5 PO; +OMEP-280 PO; -OMEP20CA13 PO; +OMEP40CA27 PO; -OMEP40CA36 PO
--- NOTE | 2019-08-27 14:45 | Diagnostic Imaging Report ---
PROCEDURE: CT abdomen and pelvis without contrast. TECHNIQUE: Multiple contiguous axial images were obtained through the abdomen and pelvis without the use of intravenous contrast. Auto Exposure Controls were utilized during the CT exam to meet ALARA standards for radiation dose reduction. INDICATION: Hematuria for four weeks. Patient has prior history of kidney stones. COMPARISON: Correlation is made with prior CT from 06/04/2016. FINDINGS: The lung bases are clear. The liver is unremarkable. Gallbladder is surgically absent. No biliary ductal dilatation is seen. The pancreas and spleen are unremarkable. No adrenal mass is detected. The left kidney is unremarkable. Nonobstructing calculus lower pole right kidney measures 7 mm. No ureteral calculi or hydronephrosis is identified. No bladder calculi are detected. Aorta is non-aneurysmal. The small and large bowel loops are normal caliber. There is no obstruction. No free fluid or fluid collection is seen. IMPRESSION: 7 mm nonobstructing right renal calculus. No ureteral calculi or hydronephrosis is identified. No other significant abnormality is detected. Dictated by: Dictated on workstation # [id number]
--- NOTE | 2019-08-27 14:45 | Diagnostic Imaging Report ---
INDICATION: Nephrolithiasis. EXAMINATION: KUB at 2:39 PM. FINDINGS: There is a 9 mm calculus projecting over the inferior pole of the right kidney. The bowel gas pattern is normal. The gallbladder appears to be surgically absent. IMPRESSION: Right nephrolithiasis. Dictated by: Dictated on workstation # [id number]
== END ==
LOC: RAD 14:01
PROVIDERS: ATTEND Urology
DX: N20.0 Calculus of kidney (principal); Z90.49 Acquired absence of other specified parts of digestive tract
CPT/HCPCS: 74018; 74176

== ENCOUNTER 2019-09-04 09:54 | Outpatient (RCR) | payer MEDICARE, OTHER ==
[2019-08-27 15:47] LABS: BASOPHILS % (AUTO) 1 % (0-10); EOSINOPHILS # (AUTO) 0.3 10^3/uL (0.0-0.3); EOSINOPHILS % (AUTO) 5 % (0-10); HEMATOCRIT 43 % (40-54); HEMOGLOBIN 14.4 G/DL (13.3-17.7); LYMPHOCYTES # (AUTO) 1.2 X 10^3 (1.0-4.0); LYMPHOCYTES % (AUTO) 20 % (12-44); MEAN CORPUSCULAR HEMOGLOBIN 29 PG (25-34); MEAN CORPUSCULAR HGB CONC 34 G/DL (32-36); MEAN CORPUSCULAR VOLUME 87 FL (80-99); MEAN PLATELET VOLUME 10.9 FL (7.4-10.4); MONOCYTES # (AUTO) 0.5 X 10^3 (0.0-1.0); MONOCYTES % (AUTO) 8 % (0-12); NEUTROPHILS % (AUTO) 66 % (42-75); PLATELET COUNT 180 10^3/uL (130-400); RED CELL DISTRIBUTION WIDTH 13.7 % (10.0-14.5); WHITE BLOOD COUNT 6.1 10^3/uL (4.3-11.0)
[2019-08-27 16:11] LABS: ALANINE AMINOTRANSFERASE 27 U/L (0-55); ALBUMIN 4.3 GM/DL (3.2-4.5); ALKALINE PHOSPHATASE 95 U/L (40-136); BILIRUBIN,TOTAL 0.5 MG/DL (0.1-1.0); BUN/CREATININE RATIO 19; CALCIUM 9.4 MG/DL (8.5-10.1); CARBON DIOXIDE 24 MMOL/L (21-32); CHLORIDE 107 MMOL/L (98-107); GFR ESTIMATED > 60; GLUCOSE 175 MG/DL (70-105); POTASSIUM 4.2 MMOL/L (3.6-5.0); SODIUM 139 MMOL/L (135-145); TOTAL PROTEIN 7.2 GM/DL (6.4-8.2)
[~2019-09-04 09:54] MED LIST changes: -GLIM4TAB3 PO; +GLIM4TAB5 PO; -OMEP-280 PO; +OMEP20CA18 PO
== END 2019-11-25 | disposition home or self-care (01) ==
LOC: ONC 09:54
PROVIDERS: ATTEND Internal Medicine Hematology & Oncology
DX: E61.1 Iron deficiency (principal); Z85.46 Personal history of malignant neoplasm of prostate; K29.50 Unspecified chronic gastritis without bleeding; K44.9 Diaphragmatic hernia without obstruction or gangrene; E11.21 Type 2 diabetes mellitus with diabetic nephropathy; I10 Essential (primary) hypertension; K76.0 Fatty (change of) liver, not elsewhere classified; F10.21 Alcohol dependence, in remission; E66.9 Obesity, unspecified; Z68.30 Body mass index [BMI] 30.0-30.9, adult; Z79.82 Long term (current) use of aspirin; Z79.84 Long term (current) use of oral hypoglycemic drugs; Z79.899 Other long term (current) drug therapy
CPT/HCPCS: 80053; 82728; 83540; 85025; 99213

== ENCOUNTER 2019-11-29 17:27 | Emergency (ER) | payer MEDICARE, OTHER ==
[~2019-11-29] VITALS: Ht 182 cm; Wt 99.3 kg
--- NOTE | 2019-11-29 17:59 | ED Abdominal Pain ---
General Stated Complaint: R SIDE PAIN Source of Information: Patient Exam Limitations: No Limitations History of Present Illness Date Seen by Provider: Nov 29, 2019 Time Seen by Provider: 17:57 Initial Comments To ER with rather sudden onset right-sided abdominal pain around 11 AM this morning. The pain radiates into his testicle on the right side, no dysuria. Does have some low back pain. Has nausea but no vomiting. Does have a history of kidney stones. Timing/Duration: 4-6 Hours Severity/Quality: Moderate Location: RUQ, RLQ Radiation: No Radiation Activities at Onset: None Allergies and Home Medications Allergies Coded Allergies: No Known Drug Allergies (Unverified , 07/24/18) Home Medications Aspirin 81 Mg Tablet.dr, 81 MG PO DAILY, (Reported) Diazepam 5 Mg Tablet, 5 MG PO PRN, (Reported) Glimepiride 4 Mg Tablet, 4 MG PO BID, (Reported) LAST FILLED 01/23/16 #60 Hydrocodone/Acetaminophen 1 Each Tablet, 1 EACH PO Q4-6HR PRN for PAIN-MODERATE Prescribed by: INESSA NEWTON on 11/29/191834 Ketorolac Tromethamine 10 Mg Tablet, 10 MG PO TID PRN for PAIN-SEVERE (8-10) Prescribed by: INESSA NEWTON on 11/29/191833 Lamotrigine 100 Mg Tablet, 100 MG PO BID, (Reported) Lisinopril 10 Mg Tablet, 10 MG PO BID, (Reported) Metformin HCl 1,000 Mg Tablet, 1,000 MG PO BID, (Reported) Ondansetron 4 Mg Tab.rapdis, 4 MG PO Q4H PRN for NAUSEA/VOMITING Prescribed by: INESSA NEWTON on 11/29/191834 Pantoprazole Sodium 40 Mg Tablet.dr, 40 MG PO DAILY Prescribed by: BRITTNEY TRINIDAD on 07/25/181805 Tamsulosin HCl 0.4 Mg Cap, 0.4 MG PO DAILY Prescribed by: INESSA NEWTON on 11/29/191833 Patient Home Medication List Home Medication List Reviewed: Yes Review of Systems Review of Systems Constitutional: see HPI EENTM: No Symptoms Reported Respiratory: No Symptoms Reported Cardiovascular: No Symptoms Reported Gastrointestinal: See HPI, Abdominal Pain Genitourinary: No Symptoms Reported Musculoskeletal: no symptoms reported Skin: no symptoms reported Psychiatric/Neurological: No Symptoms Reported Endocrine: No Symptoms Reported Hematologic/Lymphatic: No Symptoms Reported Past Ouzrshi-Jdmivv-Iugekc Hx Patient Social History Drug of Choice: 12YRS AGO-COCAINE AND MARIJUANA Recent Foreign Travel: No Contact w/Someone Who Travel: No Recent Hopitalizations: No Immunizations Up To Date Tetanus Booster (TDap): Unknown PED Vaccines UTD: Yes Date of Pneumonia Vaccine: Jul 17, 2014 Date of Influenza Vaccine: May 15, 2018 Seasonal Allergies Seasonal Allergies: No Past Medical History Surgeries: Yes (ORAL SURGERY-PULLED 3 TEETH, ) Gallbladder, Tonsillectomy Respiratory: No Cardiac: Yes Hypertension Neurological: Yes (HX OF 2 EPISODES OF BLACKING OUT-POSSIBLE SEIZURES 2012) Reproductive Disorders: No Sexually Transmitted Disease: No HIV/AIDS: No Prostate Problems, Kidney Stones Gastrointestinal: Yes Gastroesophageal Reflux Musculoskeletal: Yes (SPINAL STENOSIS) Arthritis Endocrine: Yes Diabetes, 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 Hearing Impairment: Denies Cancer: Yes Prostate Psychosocial: Yes Anxiety, Depression Integumentary: No Blood Disorders: Yes (HX-TOOK IRON) Adverse Reaction/Blood Tranf: No (N/A) Family Medical History Cardiovascular disease G8 SISTER Completed stroke 19 FATHER Diabetes mellitus 19 FATHER 19 MOTHER G8 SISTER Hypercholesterolemia G8 BROTHER Hypertension 19 FATHER 19 MOTHER G8 BROTHER Myocardial infarction 19 MOTHER Prostate cancer 19 FATHER Thyroid disease 19 MOTHER G8 SISTER No Pertinent Family Hx Physical Exam Vital Signs Vital Signs - First Documented 11/29/19 17:45 Temp 36.6 Pulse 60 Resp 16 B/P (MAP) 166/93 (117) Pulse Ox 97 O2 Delivery Room Air Capillary Refill : Height/Weight/BMI Height: 6'0.00" Weight: 220lbs. 2.0oz. 99.953510el; 29.9 BMI Method:Stated General Appearance: WD/WN, no apparent distress Respiratory: lungs clear, normal breath sounds, no respiratory distress, no accessory muscle use Cardiovascular: regular rate, rhythm, no murmur Gastrointestinal: normal bowel sounds, non tender, soft Extremities: normal range of motion, non-tender Neurologic/Psychiatric: alert, normal mood/affect, oriented x 3 Skin: normal color, warm/dry Progress/Results/Core Measures Results/Orders Lab Results Laboratory Tests Test 11/29/19 17:55 11/29/19 18:50 Range/Units White Blood Count 12.7 H 4.3-11.0 10^3/uL Red Blood Count 4.45 4.35-5.85 10^6/uL Hemoglobin 11.8 L 13.3-17.7 G/DL Hematocrit 37 L 40-54 % Mean Corpuscular Volume 83 80-99 FL Mean Corpuscular Hemoglobin 27 25-34 PG Mean Corpuscular Hemoglobin Concent 32 32-36 G/DL Red Cell Distribution Width 14.4 10.0-14.5 % Platelet Count 245 130-400 10^3/uL Mean Platelet Volume 11.2 H 7.4-10.4 FL Neutrophils (%) (Auto) 82 H 42-75 % Lymphocytes (%) (Auto) 11 L 12-44 % Monocytes (%) (Auto) 8 0-12 % Eosinophils (%) (Auto) 0 0-10 % Basophils (%) (Auto) 0 0-10 % Neutrophils # (Auto) 10.4 H 1.8-7.8 X 10^3 Lymphocytes # (Auto) 1.4 1.0-4.0 X 10^3 Monocytes # (Auto) 1.0 0.0-1.0 X 10^3 Eosinophils # (Auto) 0.0 0.0-0.3 10^3/uL Basophils # (Auto) 0.0 0.0-0.1 10^3/uL Sodium Level 139 135-145 MMOL/L Potassium Level 4.6 3.6-5.0 MMOL/L Chloride Level 108 H 98-107 MMOL/L Carbon Dioxide Level 18 L 21-32 MMOL/L Anion Gap 13 5-14 MMOL/L Blood Urea Nitrogen 26 H 7-18 MG/DL Creatinine 1.17 0.60-1.30 MG/DL Estimat Glomerular Filtration Rate > 60 BUN/Creatinine Ratio 22 Glucose Level 189 H 70-105 MG/DL Calcium Level 9.5 8.5-10.1 MG/DL Corrected Calcium 9.4 8.5-10.1 MG/DL Total Bilirubin 0.6 0.1-1.0 MG/DL Aspartate Amino Transf (AST/SGOT) 30 5-34 U/L Alanine Aminotransferase (ALT/SGPT) 32 0-55 U/L Alkaline Phosphatase 85 40-136 U/L Total Protein 7.5 6.4-8.2 GM/DL Albumin 4.1 3.2-4.5 GM/DL Urine Color YELLOW Urine Clarity CLEAR Urine pH 5.5 5-9 Urine Specific [place] >=1.030 1.016-1.022 Urine Protein TRACE H NEGATIVE Urine Glucose (UA) NEGATIVE NEGATIVE Urine Ketones TRACE H NEGATIVE Urine Nitrite NEGATIVE NEGATIVE Urine Bilirubin 1+ H NEGATIVE Urine Urobilinogen 1.0 < = 1.0 MG/DL Urine Leukocyte Esterase NEGATIVE NEGATIVE Urine RBC (Auto) NEGATIVE NEGATIVE Urine RBC NONE /HPF Urine WBC NONE /HPF Urine Crystals PRESENT H /LPF Urine Calcium Oxalate Crystals FEW H /LPF Urine Amorphous Sediment FEW HUGO URATES H /LPF Urine Bacteria TRACE /HPF Urine Casts NONE /LPF Urine Mucus MODERATE H /LPF Urine Culture Indicated NO My Orders Orders - INESSA NEWTON APRN Cbc With Automated Diff (11/29/19 18:01) Comprehensive Metabolic Panel (11/29/19 18:01) Ua Culture If Indicated (11/29/19 18:01) Ct Abd/Pelvis Wo(Kidney Stone) (11/29/19 18:01) Abdomen/Kub 1view (11/29/19 18:01) Ed Iv/Invasive Line Start (11/29/19 18:01) Ns Iv 1000 Ml (Sodium Chloride 0.9%) (11/29/19 18:15) Ondansetron Injection (Zofran Injectio (11/29/19 18:15) Ketorolac Injection (Toradol Injection) (11/29/19 18:15) Hydrocodone/Apap 5/325 Tablet (Lortab 5 (11/29/19 18:45) Fentanyl Injection (Sublimaze Injection (11/29/19 18:45) Medications Given in ED Current Medications Medications Dose Ordered Sig/Keanu Route Start Time Stop Time Status Last Admin Dose Admin Acetaminophen/ Hydrocodone Bitart 1 tab ONCE ONCE PO 11/29/19 18:45 11/29/19 18:46 DC 11/29/19 19:02 1 TAB Fentanyl Citrate 50 mcg ONCE ONCE IVP 11/29/19 18:45 11/29/19 18:46 DC 11/29/19 19:02 50 MCG Ketorolac Tromethamine 15 mg ONCE ONCE IVP 11/29/19 18:15 11/29/19 18:16 DC 11/29/19 18:10 15 MG Ondansetron HCl 4 mg ONCE ONCE IVP 11/29/19 18:15 11/29/19 18:16 DC 11/29/19 18:10 4 MG Vital Signs/I&O 11/29/19 17:45 Temp 36.6 Pulse 60 Resp 16 B/P (MAP) 166/93 (117) Pulse Ox 97 O2 Delivery Room Air Progress Progress Note : Progress Note NAME: MEG LATHAM [facility] REC#: [id number] PT STATUS: REG ER : 1955 PHYSICIAN: INESSA NEWTON APRN ADMIT DATE: 11/29/19/ER Draft Date of Exam:11/29/19 ABDOMEN/KUB 1VIEW INDICATION: Right flank pain since earlier in the day, vomited. TECHNIQUE: Two supine views of the abdomen, 6:26 p.m. CORRELATION STUDY: 08/27/2019. FINDINGS: A previously noted approximately 8 mm calcification has migrated slightly centrally and is located at the L2-L3 disc level. This may reflect migration of the stone into the renal pelvis or proximal ureter. Bowel gas pattern demonstrates mild severity fecal retention. A few gas-filled loops of small bowel are present. However, there is no evidence for obstruction with gas at the level of the rectum. Cholecystectomy clips are present. IMPRESSION: There does appear to be suggestion of slight migration of previously noted larger stone which may have migrated towards the renal pelvis and/or proximal ureter. Dictated on workstation # [id number] Dict: 11/29/19 1831 Trans: 11/29/19 1837 [facility] [id number] Interpreted by: TWILA TREJO DO Electronically signed by: NAME: MEG LATHAM [facility] REC#: [id number] PT STATUS: REG ER : 1955 PHYSICIAN: INESSA NEWTON APRN ADMIT DATE: 11/29/19/ER Draft Date of Exam:11/29/19 CT ABD/PELVIS WO(KIDNEY STONE) PROCEDURE: CT urinary tract, rule out kidney stone. TECHNIQUE: Multiple contiguous axial images were obtained through the abdomen and pelvis without the use of intravenous contrast. Auto Exposure Controls were utilized during the CT exam to meet ALARA standards for radiation dose reduction. INDICATION: Right flank pain. History of prostate CVA. COMPARISON: CT scan of 08/27/2019. FINDINGS: The calculus that was in the renal pelvis previously has migrated and is now at the UPJ causing moderate hydronephrosis. No other calculi are seen within either kidney. The distal ureters are not dilated. The bladder is empty. No evidence of adenopathy of pathologic size. Bowel gas pattern is normal. The appendix is normal. Pancreas is normal. The liver is normal. Gallbladder is absent. Spleen is normal. Adrenal glands are normal. The aorta shows mild atherosclerosis. IMPRESSION: Obstructive uropathy due to a 5 mm stone now at the UPJ of the right kidney. Dictated on workstation # [id number] Dict: 11/29/19 182 Trans: 11/29/191834 [facility] [id number] Interpreted by: DEBBIE VIRAMONTES MD Electronically signed by: Departure Communication (Admissions) 1840-patient is already established with Dr. Jang for prostate cancer. I spoke with Dr. Jang, the patient should come to his office tomorrow at 10 AM. Impression Primary Impression: Right ureteral calculus Disposition: HOME, SELF-CARE Condition: Stable Departure-Patient Inst. Decision time for Depature: 18:26 Referrals: [facility] [place] (PCP/Family) Primary Care Physician JENNIFER JANG MD Patient Instructions: Kidney Stones in Adults, Urinary Tract Infection, Adult (DC) Add. Discharge Instructions: 1. Return to Er for any concerns 2. Go to Dr. Jang's office tomorrow at 10 AM.. Return to Er for any fevers, intolerable pain or other concerns. Scripts Cephalexin (Keflex) 500 Mg Capsule 500 MG PO TID, #9 CAP Prov: INESSA NEWTON SPEECH LANGUAGE PATHOLOGY ASSISTANT 11/29/19 Ondansetron (Ondansetron Odt) 4 Mg Tab.rapdis 4 MG PO Q4H PRN for NAUSEA/VOMITING, #10 TAB Prov: INESSA NEWTON APRN 11/29/19 Tamsulosin HCl (Flomax) 0.4 Mg Cap 0.4 MG PO DAILY, #10 CAP Prov: INESSA NEWTON SPEECH LANGUAGE PATHOLOGY ASSISTANT 11/29/19 Hydrocodone/Acetaminophen (Lorcet 5-325 mg Tablet) 1 Each Tablet 1 EACH PO Q4-6HR PRN for PAIN-MODERATE MDD 10 for 7 Days, #15 TAB Prov: INESSA NEWTON SPEECH LANGUAGE PATHOLOGY ASSISTANT 11/29/19 Ketorolac Tromethamine (Ketorolac Tromethamine) 10 Mg Tablet 10 MG PO TID PRN for PAIN-SEVERE (8-10), #9 TAB Prov: INESSA NEWTON SPEECH LANGUAGE PATHOLOGY ASSISTANT 11/29/19 Copy Copies To 1: JENNIFER JANG MD, PETER J APRN Nov 29, 2019 17:59
[2019-11-29 18:09] LABS: BASOPHILS % (AUTO) 0 % (0-10); EOSINOPHILS % (AUTO) 0 % (0-10); HEMATOCRIT 37 % (40-54); HEMOGLOBIN 11.8 G/DL (13.3-17.7); LYMPHOCYTES # (AUTO) 1.4 X 10^3 (1.0-4.0); LYMPHOCYTES % (AUTO) 11 % (12-44); MEAN CORPUSCULAR HEMOGLOBIN 27 PG (25-34); MEAN CORPUSCULAR HGB CONC 32 G/DL (32-36); MEAN CORPUSCULAR VOLUME 83 FL (80-99); MEAN PLATELET VOLUME 11.2 FL (7.4-10.4); MONOCYTES % (AUTO) 8 % (0-12); NEUTROPHILS # (AUTO) 10.4 X 10^3 (1.8-7.8); NEUTROPHILS % (AUTO) 82 % (42-75); PLATELET COUNT 245 10^3/uL (130-400); RED CELL DISTRIBUTION WIDTH 14.4 % (10.0-14.5); WHITE BLOOD COUNT 12.7 10^3/uL (4.3-11.0)
[2019-11-29 18:12] LABS: ALBUMIN 4.1 GM/DL (3.2-4.5)
[2019-11-29 18:13] LABS: CHLORIDE 108 MMOL/L (98-107); POTASSIUM 4.6 MMOL/L (3.6-5.0); SODIUM 139 MMOL/L (135-145)
[2019-11-29 18:14] LABS: CALCIUM 9.5 MG/DL (8.5-10.1)
[2019-11-29 18:15] LABS: GLUCOSE 189 MG/DL (70-105); TOTAL PROTEIN 7.5 GM/DL (6.4-8.2)
[2019-11-29] MEDS ORDERED: ONDANSETRON 4 MG/2 ML (SDV) Z0FRAN IVP ONE (18:15)
[2019-11-29] MEDS ORDERED: NS IV 1000 ML 1,000 ML IV SCH (18:15)
[2019-11-29] MEDS ORDERED: KETOROLAC 30 MG/ML VIAL IVP ONE (18:15)
[2019-11-29 18:16] LABS: CARBON DIOXIDE 18 MMOL/L (21-32)
[2019-11-29 18:17] LABS: BILIRUBIN,TOTAL 0.6 MG/DL (0.1-1.0)
[2019-11-29 18:18] LABS: ALKALINE PHOSPHATASE 85 U/L (40-136); CREATININE SERUM 1.17 MG/DL (0.60-1.30); GFR ESTIMATED > 60
[2019-11-29 18:20] LABS: BUN/CREATININE RATIO 22
[2019-11-29 18:21] LABS: ALANINE AMINOTRANSFERASE 32 U/L (0-55)
[2019-11-29] MEDS ORDERED: HYDR-3870 PO (18:34)
[2019-11-29] MEDS ORDERED: KETO10TA PO (18:34)
[2019-11-29] MEDS ORDERED: TMSL.4C PO (18:34)
[2019-11-29] MEDS ORDERED: ONDA4TAB11 PO (18:35)
--- NOTE | 2019-11-29 18:35 | Diagnostic Imaging Report ---
PROCEDURE: CT urinary tract, rule out kidney stone. TECHNIQUE: Multiple contiguous axial images were obtained through the abdomen and pelvis without the use of intravenous contrast. Auto Exposure Controls were utilized during the CT exam to meet ALARA standards for radiation dose reduction. INDICATION: Right flank pain. History of prostate CVA. COMPARISON: CT scan of 08/27/2019. FINDINGS: The calculus that was in the renal pelvis previously has migrated and is now at the UPJ causing moderate hydronephrosis. No other calculi are seen within either kidney. The distal ureters are not dilated. The bladder is empty. No evidence of adenopathy of pathologic size. Bowel gas pattern is normal. The appendix is normal. Pancreas is normal. The liver is normal. Gallbladder is absent. Spleen is normal. Adrenal glands are normal. The aorta shows mild atherosclerosis. IMPRESSION: Obstructive uropathy due to a 5 mm stone now at the UPJ of the right kidney. Dictated by: Dictated on workstation # [id number]
--- NOTE | 2019-11-29 18:38 | Diagnostic Imaging Report ---
INDICATION: Right flank pain since earlier in the day, vomited. TECHNIQUE: Two supine views of the abdomen, 6:26 p.m. CORRELATION STUDY: 08/27/2019. FINDINGS: A previously noted approximately 8 mm calcification has migrated slightly centrally and is located at the L2-L3 disc level. This may reflect migration of the stone into the renal pelvis or proximal ureter. Bowel gas pattern demonstrates mild severity fecal retention. A few gas-filled loops of small bowel are present. However, there is no evidence for obstruction with gas at the level of the rectum. Cholecystectomy clips are present. IMPRESSION: There does appear to be suggestion of slight migration of previously noted larger stone which may have migrated towards the renal pelvis and/or proximal ureter. Dictated by: Dictated on workstation # [id number]
[2019-11-29] MEDS ORDERED: fentaNYL INJECTION 100 MCG/2 ML AMP IVP ONE (18:45)
[2019-11-29] MEDS ORDERED: HYDROcodone/APAP 5 MG/325 MG (LORTAB) TAB PO ONE (18:45)
[2019-11-29 18:58] LABS: CLARITY,URINE CLEAR; COLOR,URINE YELLOW; GLUCOSE, URINE (UA) NEGATIVE (NEGATIVE); KETONES,URINE TRACE (NEGATIVE); LEUKOCYTE ESTERASE ,URINE NEGATIVE (NEGATIVE); NITRITE,URINE NEGATIVE (NEGATIVE); PH,URINE 5.5 (5-9); PROTEIN,URINE TRACE (NEGATIVE)
--- NOTE | 2019-11-29 18:58 | NUR ---
REPORT GIVEN TO MCKENZIE. CASSIDY
[2019-11-29 19:07] LABS: BACTERIA,URINE TRACE /HPF; BILIRUBIN,URINE 1+ (NEGATIVE)
[2019-11-29 19:08] LABS: AMORPHOUS SEDIMENT,UR FEW AMOR URATES /LPF; CALCIUM OXALATE CRYSTALS,UR FEW /LPF
[2019-11-29] MEDS ORDERED: CEPH-507 PO (19:11)
[2019-11-29 19:24] VITALS: BP 154/89
== END 2019-11-29 19:23 | disposition home or self-care (01) ==
LOC: EDUNIT# 17:27 → ER 17:28
DX: N20.1 Calculus of ureter (principal); Z79.82 Long term (current) use of aspirin; Z79.84 Long term (current) use of oral hypoglycemic drugs; Z79.899 Other long term (current) drug therapy; I10 Essential (primary) hypertension; F41.9 Anxiety disorder, unspecified; F32.9 Major depressive disorder, single episode, unspecified; Z85.46 Personal history of malignant neoplasm of prostate
CPT/HCPCS: 36415; 74018; 74176; 80053; 81000; 85025

== ENCOUNTER 2019-11-30 10:34 | Day surgery (SDC) | payer MEDICARE, OTHER ==
[~2019-11-30] VITALS: Ht 182.9 cm; Wt 99.3 kg
[2019-11-30] VITALS (10 sets, daily range): BP systolic 105–143; BP diastolic 60–94
[~2019-11-30 10:34] MED LIST changes: +CEPH-507 PO; +HYDR-3870 PO; +KETO10TA PO; +ONDA4TAB11 PO; +TMSL.4C PO
--- NOTE | 2019-11-30 11:10 | Diagnostic Imaging Report ---
Indication: Right nephrolithiasis KUB 11:09 AM There is 8 mm stone projecting over the right renal pelvis. Bowel gas pattern is normal. IMPRESSION: Right nephrolithiasis Dictated by: Dictated on workstation # [id number]
[2019-11-30] MEDS ORDERED: LACTATED RINGERS 1,000 ML IV PRN (11:20)
[2019-11-30] MEDS ORDERED: cefTRIAXone FOR IV USE 1,000 MG in WATER (STERILE) FOR INJECTION 10 ML IV ONE (11:45)
[2019-11-30] MEDS ORDERED: fentaNYL INJECTION 100 MCG/2 ML AMP IV ONE (12:30)
[2019-11-30] MEDS ORDERED: proPOfol 200 MG/20 ML (DIPRIVAN) VIAL IV ONE (12:54)
[2019-11-30] MEDS ORDERED: ONDANSETRON 4 MG/2 ML (SDV) Z0FRAN ONE (12:54)
[2019-11-30] MEDS ORDERED: fentaNYL INJECTION 100 MCG/2 ML AMP ONE (12:54)
[2019-11-30] MEDS ORDERED: LIDOCAINE PF 2% 5 ML (XYLOCAINE) VIAL ONE (12:54)
[2019-11-30] MEDS ORDERED: ROCURONIUM 10 MG/ML 5 ML SYRINGE IV ONE (12:54)
[2019-11-30] MEDS ORDERED: MIDAZOLAM 2 MG/2 ML (VERSED) VIAL ONE (12:56)
[2019-11-30] MEDS ORDERED: SEVOFLURANE (ULTANE) 15 ML INHAL SOLN ONE ×2 (12:56→14:30)
--- NOTE | 2019-11-30 13:47 | Progress Note-Pre Operative ---
Pre-Operative Progress Note H&P Reviewed The H&P was reviewed, patient examined and no changes noted. Date Seen by Provider: Nov 30, 2019 Time Seen by Provider: 13:47 Date H&P Reviewed: Nov 30, 2019 Time H&P Reviewed: 13:47 Pre-Operative Diagnosis: RT PROXIMAL URETERAL STONE JENNIFER JANG MD Nov 30, 2019 13:47
--- NOTE | 2019-11-30 13:52 | Progress Note-Post Operative ---
Post-Operative Progess Note Surgeon (s)/Harness Placer (s) Surgeon JENNIFER JANG MD Harness Placer: NONE Pre-Operative Diagnosis RT PROXIMAL URETERAL STONE Post-Operative Diagnosis SAME Procedure & Operative Findings Date of Procedure 11/30/19 Procedure Performed/Findings CYSTOSCOPY WITH URETERAL STONE MANIPULATION AND STENT Anesthesia Type GENERAL Estimated Blood Loss Estimated blood loss (mL): NONE Specimens/Packing Specimens Removed NONE Packing: NONE JENNIFER JANG MD Nov 30, 2019 13:52
--- NOTE | 2019-11-30 13:54 | Discharge Inst-Urology ---
Discharge Inst-Urology Reconcile Patient Problems Problems Reviewed?: Yes Final Diagnosis RT URETERAL STONE Patient Instructions/Follow Up Plan/Assessment/Instructions Please make appointment to been seen in office Saturday 12/09 with KUB prior to it. Increase oral fluids for 48 hours and then as needed. Diet and Activity as tolerated. If questions or concerns contact your physician Or seek help at emergency department. JENNIFER JANG MD Nov 30, 2019 13:54
[2019-11-30] MEDS ORDERED: GLYCOPYRROLATE 0.2 MG/ML (ROBINUL) 2 ML VIAL ONE (14:16)
[2019-11-30] MEDS ORDERED: NEOSTIGMINE 3 MG/3 ML VIAL ONE (14:16)
[2019-11-30] MEDS ORDERED: ONDANSETRON 4 MG/2 ML (SDV) Z0FRAN IVP PRN (14:45)
[2019-11-30] MEDS ORDERED: MEPERIDINE (DEMEROL) INJ 50 MG/ML IVP ONE (14:45)
[2019-11-30] MEDS ORDERED: morphine INJ 10 MG/ML 1ML (SYR OR VIAL) IVP ONE (14:45)
[2019-11-30] MEDS ORDERED: IOPAMIDOL 61% 30 ML (ISOVUE 300) VIAL ONE (14:49)
--- NOTE | 2019-11-30 14:53 | Anesthesia-General Post-Op ---
General Patient Condition Mental Status/LOC: Same as Preop Cardiovascular: Satisfactory Nausea/Vomiting: Absent Respiratory: Satisfactory Pain: Controlled Complications: Absent Post Op Complications Complications None Follow Up Care/Instructions Patient Instructions None needed. Anesthesia/Patient Condition Patient Condition Patient is doing well, no complaints, stable vital signs, no apparent adverse anesthesia problems. No complications reported per nursing. KRISTY VELAZCO CRNA Nov 30, 2019 14:53
--- NOTE | 2019-11-30 18:27 | OPERATIVE REPORT ---
DATE OF SERVICE: 11/30/2019 PREOPERATIVE DIAGNOSIS: Right proximal ureteral stone. POSTOPERATIVE DIAGNOSIS: Right proximal ureteral stone. OPERATION PERFORMED: Cystoscopy with right ureteral stone manipulation and insertion of right double-J stent. SURGEON: Elton Jang MD ANESTHESIA: General. COMPLICATIONS: None. DESCRIPTION OF PROCEDURE: Under satisfactory general anesthesia, the patient in lithotomy position, genitalia were prepped and draped in the usual sterile fashion. A 23-Tamazight cystoscope was introduced under vision. The anterior urethra was normal. The prostate was surgically absent. The bladder neck was open. Bladder was examined and the ureteric orifices were identified. There was no foreign body, bladder tumor or stone visualized. Using the foroblique lens, I passed a 5 and then a 6 spiral tip ureteral catheter to the level of the stone, flushed it back into the kidney, removed the catheter, inserted a 6-Tamazight 26 cm double-J stent, all the way up to the right renal pelvis guided fluoroscopically, removed the guidewire and the stent was seen draining nicely proximally fluoroscopically and distally endoscopically. I emptied the bladder, removed the cystoscope. The patient tolerated the procedure and anesthesia well and was sent to recovery room in stable condition. Job ID: [id number] DocumentID: [id number] Dictated Date: 11/30/2019 14:27:28 [employer] Motor Mechanic Date: 11/30/2019 18:25:45 Dictated By: ELTON JANG MD
== END 2019-11-30 16:15 | disposition home or self-care (01) ==
LOC: SDC 10:34
PROVIDERS: ATTEND Urology
DX: N20.1 Calculus of ureter (principal); E11.9 Type 2 diabetes mellitus without complications; K21.9 Gastro-esophageal reflux disease without esophagitis; F41.9 Anxiety disorder, unspecified; F31.9 Bipolar disorder, unspecified; Z90.79 Acquired absence of other genital organ(s); Z90.89 Acquired absence of other organs; Z90.49 Acquired absence of other specified parts of digestive tract
CPT/HCPCS: 74018; 82962; 87081

== ENCOUNTER 2019-12-10 06:45 | Outpatient (RCR) | payer MEDICARE, OTHER ==
[~2019-12-10] VITALS: Ht 182.9 cm; Wt 99.3 kg
[~2019-12-10 06:45] MED LIST changes: -CLON1TAB13 PO; -DICL75TA2 PO; -FLUO40CA PO; -GLIP5TAB26 PO; -IRBE75TA9 PO; -NITR-65 PO; -PANT40TA3 PO
[2019-12-10] MEDS ORDERED: DICL75TA2 PO (14:15)
[2019-12-10] MEDS ORDERED: ATOR20TA66 PO (14:15)
[2019-12-10] MEDS ORDERED: FLUO40CA PO (14:15)
[2019-12-10] MEDS ORDERED: PANT40TA3 PO (14:15)
[2019-12-10] MEDS ORDERED: IRBE75TA9 PO (14:15)
[2019-12-10] MEDS ORDERED: GLIP5TAB26 PO (14:15)
[2019-12-10] MEDS ORDERED: CLON1TAB13 PO (14:15)
[2019-12-11] MEDS ORDERED: NITR-65 PO (09:37)
[2019-12-11] MEDS ORDERED: TMSL.4C PO (09:37)
== END 2019-12-10 14:21 | disposition home or self-care (01) ==
LOC: PREOP 06:45 → EDSTATUS 10:30 → PREOP 14:21
PROVIDERS: ATTEND Urology
DX: Z01.818 Encounter for other preprocedural examination (principal); N20.0 Calculus of kidney; Z11.59 Encounter for screening for other viral diseases
CPT/HCPCS: 87635

== ENCOUNTER → 2019-12-10 | Outpatient (CLI) | payer MEDICARE, OTHER ==
[~2019-12-10] MED LIST changes: +CLON1TAB13 PO; +DICL75TA2 PO; +FLUO40CA PO; +GLIP5TAB26 PO; +IRBE75TA9 PO; +NITR-65 PO; +PANT40TA3 PO
--- NOTE | 2019-12-10 12:19 | Diagnostic Imaging Report ---
INDICATION: Nephrolithiasis KUB 12 2:00 PM There is a right-sided double-J ureteral stent. There is an 8 mm opacity projecting over the inferior pole of the right kidney. Gallbladder appears to be surgically absent. Bowel gas pattern is normal. IMPRESSION: Right nephrolithiasis. There is right double-J ureteral stent in place. Dictated by: Dictated on workstation # [id number]
== END ==
LOC: RAD 11:53
PROVIDERS: ATTEND Urology
DX: N20.0 Calculus of kidney (principal); Z98.890 Other specified postprocedural states
CPT/HCPCS: 74018

== ENCOUNTER 2019-12-11 07:16 | Day surgery (SDC) | payer MEDICARE, OTHER ==
[~2019-12-11] VITALS: Ht 182.9 cm; Wt 99.3 kg
[2019-12-11] VITALS (8 sets, daily range): BP systolic 122–160; BP diastolic 77–98
[~2019-12-11 07:16] MED LIST changes: +CLON1TAB13 PO; +DICL75TA2 PO; +FLUO40CA PO; +GLIP5TAB26 PO; +IRBE75TA9 PO; +PANT40TA3 PO
--- OUTSIDE RECORDS SUMMARY | 2019-12-11 07:21 | XMS REPORT | Clinical Summary ---
Author Author [facility] Organization [facility] Address Unknown Phone Unavailable Care Team Providers Care Estate Planner Name Role Phone Oleg Ortiz MD Unavailable Unavailable Eh Ochoa MD PCP Oleg Thomas MD Unavailable Anna Randall RN Unavailable Unavailable Eh Kearney MD Unavailable Unavailable Source Comments Some departments are not documenting in the electronic medical record. If you d o not see the information that you expected, contact Release of Information in [facility] Information Management department at [phone] for further assistan ce in locating additional records.[facility] Allergies No Known Allergies Medications End Date Status Medication Sig Dispensed Refills Start Date Active nortriptyline (PAMELOR) Take 1 Cap by 30 Cap 0 25 mg capsule mouth at 1 bedtime daily. Active atorvastatin (LIPITOR) 20 Take 20 mg by 0 mg tablet mouth daily. Active PARoxetine CR (+) (PAXIL Take 40 mg by 0 CR) 37.5 mg tablet mouth daily. Active glimepiride (AMARYL) 4 mg Take 4 mg by 0 tablet mouth daily with breakfast. Active diazepam (DIASTAT) 10 mg Insert or 0 kit Apply 5 mg to rectal area as directed. Active diazepam (VALIUM) 10 mg Take 10 mg by 0 tablet mouth every 6 hours as needed for Anxiety. Active lamoTRIgine (LAMICTAL) 25 Take 50 mg by 0 mg tablet mouth daily. Active aspirin EC 81 mg tablet Take 81 mg by 0 mouth daily. Active lisinopril (PRINIVIL; Take 20 mg by 0 ZESTRIL) 20 mg tablet mouth daily. Active metFORMIN (GLUCOPHAGE) Take 1,000 mg 0 1,000 mg tablet by mouth twice daily with meals. Active Problems Problem Noted Date Major depressive disorder 06/08/2011 Social History Date Tobacco Use Types Packs/Day Years Used Never Smoker Drinks/Week oz/Week Comments Alcohol Use 6 Cans of beer 6.0 Yes Sex Assigned at Date Recorded Not on file Industry Job Start Date Occupation Not on file Not on file Not on file Travel End Travel History Travel Start No recent travel history available. Last Filed Vital Signs Reading Time Taken Comments Vital Sign 140/95 05/14/2015 11:23 AM CDT Blood Pressure 75 05/14/2015 11:23 AM CDT Pulse 36.7 C (98.1 F) 05/14/2015 11:00 AM CDT Temperature - - Respiratory Rate 98% 05/14/2015 11:23 AM CDT Oxygen Saturation - - Inhaled Oxygen Concentration 98.9 kg (218 lb) 05/14/2015 9:07 AM CDT Weight 182.9 cm (6') 05/14/2015 9:07 AM CDT Height 29.57 05/14/2015 9:07 AM CDT Body Mass Index Plan of Treatment Health Maintenance Due Date Last Done Comments MEDICARE ANNUAL WELLNESS 1955 VISIT HIV SCREENING 11/10/1970 DTAP/TDAP VACCINES (1 - 11/10/1973 Tdap) HEPATITIS C SCREENING 11/10/1973 PHYSICAL (COMPREHENSIVE) 11/10/1973 EXAM COLORECTAL CANCER 11/10/2005 SCREENING SHINGLES RECOMBINANT 11/10/2005 VACCINE (1 of 2) INFLUENZA VACCINE 05/08/2020 Results Not on filefrom Last 3 Months Insurance Type Payer Benefit Subscriber ID Effective Phone Address Plan / Dates Group Medicare MEDICARE MEDICARE xxxxxxxxxx 2013-P PART A AND [place] B HMO HUMANA HU[place] xxxxxxxxx [place] [id number] Advance Directives Patient Advanced Practice Nurse Explanation Type Date Recorded Advance 05/14/2015 8:17 AM Directive/DPOA Date Inactivated Comments Code Status Date Activated 06/18/2011 4:33 PM Full Code 06/17/2011 9:24 AM Provider has discussed Code Status No, discussion no t w/Patient or Family? necessary based on Dx 06/11/2011 8:50 AM Full Code 06/08/2011 12:05 PM Provider has discussed Code Status No, discussion no t w/Patient or Family? necessary based on Dx
--- OUTSIDE RECORDS SUMMARY | 2019-12-11 07:22 | XMS REPORT | Continuity of Care Document ---
Author Organization Unknown Address Unknown Phone Unavailable Allergies Active Description Code Type Severity Reaction Onset Reported/Identified Relationship to Patient Clinical Status Yes No Known Drug Allergies [id number] Drug Allergy Unknown N/A 07/24/2018 Medications There is no data. Problems Date Dx Coded Attending Type Code Diagnosis Diagnosed By 07/07/1251 PRIYANKA TRAVIS, VERONICA Bojorquez E11. 9 TYPE 2 DIABETES MELLITUS WITHOUT COMPLIC 07/07/1251 PRIYANKA TRAVSI, VERONICA Ot E61. 1 IRON DEFICIENCY 07/07/1251 VERONICA MATHEW MD, Ot E66. 9 OBESITY, UNSPECIFIED 07/07/1251 VERONICA MATHEW MD Ot F10. 21 ALCOHOL DEPENDENCE, IN REMISSION 07/07/1251 PRIYANKA TRAVIS, VERONICA Ot I10 ESSENTIAL (PRIMARY) HYPERTENSION 07/07/1251 PRIYANKA TRAVIS, VERONICA Ot K29. 50 UNSPECIFIED CHRONIC GASTRITIS WITHOUT BL 07/07/1251 PRIYANKA TRAVIS, VERONICA Ot K44. 9 DIAPHRAGMATIC HERNIA WITHOUT OBSTRUCTION 07/07/1251 PRIYANKA TRAVIS, VERONICA Ot K76. 0 FATTY (CHANGE OF) LIVER, NOT ELSEWHERE C 07/07/1251 PRIYANKA TRAVIS, VERONICA Ot Z85. 46 PERSONAL HISTORY OF MALIGNANT NEOPLASM O 10/01/2014 Ot 250.80 ALAN B W OTH SPEC MANIFEST, TYPE II OR UNS 10/01/2014 Ot 276.51 DEH YDRATION 10/01/2014 Ot 300.00 ANX IETY STATE NOS 10/01/2014 Ot 311 DEPRES SIVE DISORDER NEC 10/01/2014 Ot 458.9 HYPO TENSION NOS 10/01/2014 Ot 536.3 TIM ROPARESIS 10/01/2014 Ot 553.3 DIAP HRAGMATIC HERNIA 10/01/2014 Ot 564.00 UNS PEC CONSTIPATION 10/01/2014 Ot 584.9 ACUT E RENAL FAILURE, UNSPECIFIED 10/01/2014 Ot 250.80 10/01/2014 Ot 276.51 10/01/2014 Ot 300.00 10/01/2014 Ot 311 10/01/2014 Ot 458.9 10/01/2014 Ot 536.3 10/01/2014 Ot 553.3 10/01/2014 Ot 564.00 10/01/2014 Ot 584.9 01/21/2015 BRITTNEY TRINIDAD DO Ot 285. 9 ANEMIA NOS 01/21/2015 TRINIDAD BRITTNEY MCELROY Ot 530. 10 ESOPHAGITIS NOS 01/21/2015 TRINIDAD BRITTNEY MCELROY Ot 553. 3 DIAPHRAGMATIC HERNIA 01/21/2015 TRINIDAD BRITTNEY MCELROY Ot 792. 1 ABN FIND-STOOL CONTENTS 08/20/2015 INESSA NEWTON WIRE DRAWER Ot R25 .2 CRAMP AND SPASM 09/05/2015 MIGUEL GIORDANO E WIRE DRAWER Ot 571.8 09/05/2015 PAPA GIORDANOE E WIRE DRAWER Ot 783.21 09/05/2015 SANCHEZ GIORDANOSIE E WIRE DRAWER Ot 787.99 09/05/2015 SANCHEZ GIORDANOSIE E WIRE DRAWER Ot 789.01 09/05/2015 SANCHEZ GIORDANOSIE E WIRE DRAWER Ot 388.30 09/05/2015 PASQUALE MIGUEL E WIRE DRAWER Ot 471.8 09/05/2015 SANCHEZ GIORDANOSIE E WIRE DRAWER Ot 478.19 09/05/2015 BRITTNEY TRINIDAD DO Ot V72. 84 09/10/2015 SANCHEZ GIORDANOSIE E WIRE DRAWER Ot 571.8 09/10/2015 SANCHEZ GIORDANOSIE E WIRE DRAWER Ot 783.21 09/10/2015 PASQUALE MIGUEL E WIRE DRAWER Ot 787.99 09/10/2015 PASQUALE MIGUEL E WIRE DRAWER Ot 789.01 09/10/2015 PASQUALE MIGUEL E WIRE DRAWER Ot 388.30 09/10/2015 SANCHEZ GIORDANOSIE E WIRE DRAWER Ot 471.8 09/10/2015 SANCHEZ GIORDANOSIE E WIRE DRAWER Ot 478.19 09/10/2015 BRITTNEY TRINIDAD DO Ot V72. 84 09/10/2015 PAPA GIORDANOE E WIRE DRAWER Ot I65.23 09/10/2015 SANCHEZ GIORDANOSIE E WIRE DRAWER Ot M79.605 09/10/2015 SHEMARLMONROE, MIGUEL E WIRE DRAWER Ot I65.23 09/10/2015 SHEMARLMONROE MIGUEL E WIRE DRAWER Ot M79.605 10/06/2015 HELLMONROE, MIGUEL E WIRE DRAWER Ot I65.23 10/06/2015 HELLMONROE MIGUEL E WIRE DRAWER Ot M79.605 10/17/2015 SHEMARLMONROE MIGUEL E WIRE DRAWER Ot I65.23 10/17/2015 PASQUALE MIGUEL E WIRE DRAWER Ot M79.605 12/22/2015 LAINE TRAVIS, JENNIFER A Ot C61 MALIGNANT NEOPLASM OF PROSTATE 12/22/2015 LAINE TRAVIS, JENNIFER A Ot C61 MALIGNANT NEOPLASM OF PROSTATE 12/25/2015 LAINE TRAVIS, JENNIFER A Ot C61 MALIGNANT NEOPLASM OF PROSTATE 01/13/2016 LAINE TRAVIS, JENNIFER A Ot C61 MALIGNANT NEOPLASM OF PROSTATE 01/16/2016 LAINE TRAVIS, JENNIFER A Ot C61 MALIGNANT NEOPLASM OF PROSTATE 02/26/2016 HERBERT TRAVIS, JORDAN E Ot C61 MALIGNANT NEOPLASM OF PROSTATE 03/02/2016 HERBERT TRAVIS, JORDAN E Ot C61 MALIGNANT NEOPLASM OF PROSTATE 03/17/2016 EDUAR MCMULLEN MD Ot C6 1 MALIGNANT NEOPLASM OF PROSTATE 03/17/2016 EDUAR MCMULLEN MD Ot Z01.812 ENCOUNTER FOR PREPROCEDURAL LABORATORY E 03/17/2016 EDUAR MCMULLEN MD Ot Z11.2 ENCOUNTER FOR SCREENING FOR OTHER BACTER 03/18/2016 EDUAR MCMULLEN MD Ot C6 1 MALIGNANT NEOPLASM OF PROSTATE 03/18/2016 EDUAR MCMULLEN MD Ot Z01.812 ENCOUNTER FOR PREPROCEDURAL LABORATORY E 03/18/2016 EDUAR MCMULLEN MD Ot Z11.2 ENCOUNTER FOR SCREENING FOR OTHER BACTER 03/25/2016 EDUAR MCMULLEN MD Ot C6 1 MALIGNANT NEOPLASM OF PROSTATE 03/25/2016 EDUAR MCUMLLEN MD Ot E11.9 TYPE 2 DIABETES MELLITUS WITHOUT COMPLIC 03/25/2016 EDUAR MCMULLEN MD Ot E78.5 HYPERLIPIDEMIA, UNSPECIFIED 03/25/2016 EDUAR MCMULLEN MD Ot F31.9 BIPOLAR DISORDER, UNSPECIFIED 03/25/2016 EDUAR MCMULLEN MD, Ot F41.9 ANXIETY DISORDER, UNSPECIFIED 03/25/2016 EDUAR MCMULLEN MD Ot K21.9 GASTRO-ESOPHAGEAL REFLUX DISEASE WITHOUT 03/25/2016 EDUAR MCMULLEN MD Ot Z79.82 MANAGER TRADING (CURRENT) USE OF ASPIRIN 03/25/2016 EDUAR MCMULLEN MD Ot Z87.442 PERSONAL HISTORY OF URINARY CALCULI 04/06/2016 HERBERT TRAVIS, JORDAN E Ot C61 MALIGNANT NEOPLASM OF PROSTATE 06/04/2016 LAINE TRAVIS, JENNIFER Mcdonald Ot C61 MALIGNANT NEOPLASM OF PROSTATE 06/04/2016 PRIYANKA TRAVIS, VERONICA Ot C61 MALIGNANT NEOPLASM OF PROSTATE 06/07/2016 LAINE TRAVIS, JENNIFER Mcdonald Ot C61 MALIGNANT NEOPLASM OF PROSTATE 06/07/2016 PRIYANKA TRAVIS, VERONICA Ot C61 MALIGNANT NEOPLASM OF PROSTATE 06/08/2016 DEGRAFFENREID-ELAM, CINDY L Ot N20.0 CALCULUS OF KIDNEY 06/08/2016 DEGRAFFENREID-ELAM, CINDY L Ot R14.0 ABDOMINAL DISTENSION (GASEOUS) 06/08/2016 DEGRAFFENREID-ELAM, CINDY L Ot R30.0 DYSURIA 06/08/2016 DEGRAFFENREID-ELAM, CINDY L Ot R31.9 HEMATURIA, UNSPECIFIED 06/08/2016 DEGRAFFENREID-ELAM, CINDY L Ot R39.89 OTHER SYMPTOMS AND SIGNS INVOLVING THE G 06/08/2016 DEGRAFFENREID-ELAM, CINDY L Ot Z87.898 PERSONAL HISTORY OF OTHER SPECIFIED COND 06/25/2016 DEGRAFFENREID-ELAM, CINDY L Ot N20.0 CALCULUS OF KIDNEY 06/25/2016 DEGRAFFENREID-ELAM, CINDY L Ot R14.0 ABDOMINAL DISTENSION (GASEOUS) 06/25/2016 DEGRAFFENREID-ELAM, CINDY L Ot R30.0 DYSURIA 06/25/2016 DEGRAFFENREID-ELAM, CINDY L Ot R31.9 HEMATURIA, UNSPECIFIED 06/25/2016 DEGRAFFENREID-ELAM, CINDY L Ot R39.89 OTHER SYMPTOMS AND SIGNS INVOLVING THE G 06/25/2016 DEGRAFFENREID-ELAM, CINDY L Ot Z87.898 PERSONAL HISTORY OF OTHER SPECIFIED COND 07/05/2016 DEGRAFFENREID-ELAM, CINDY L Ot N20.0 CALCULUS OF KIDNEY 07/05/2016 DEGRAFFENREID-ELAM, CINDY L Ot R14.0 ABDOMINAL DISTENSION (GASEOUS) 07/05/2016 DEGRAFFENREID-ELAM, CINDY L Ot R30.0 DYSURIA 07/05/2016 DEGRAFFENREID-ELAM, CINDY L Ot R31.9 HEMATURIA, UNSPECIFIED 07/05/2016 DEGRAFFENREID-ELAM, CINDY L Ot R39.89 OTHER SYMPTOMS AND SIGNS INVOLVING THE G 07/05/2016 DEGRAFFENREID-ELAM, CINDY L Ot Z87.898 PERSONAL HISTORY OF OTHER SPECIFIED COND 12/18/2017 LAINE TRAVIS, JENNIFER Mcdonald Ot C61 MALIGNANT NEOPLASM OF PROSTATE 12/18/2017 PRIYANKA TRAVIS, VERONICA Ot C61 MALIGNANT NEOPLASM OF PROSTATE 12/18/2017 DEGRAFFENREID-ELAM, CINDY L Ot N20.0 CALCULUS OF KIDNEY 12/18/2017 DEGRAFFENREID-ELAM, CINDY L Ot R14.0 ABDOMINAL DISTENSION (GASEOUS) 12/18/2017 DEGRAFFENREID-ELAM, CINDY L Ot R30.0 DYSURIA 12/18/2017 DEGRAFFENREID-ELAM, CINDY L Ot R31.9 HEMATURIA, UNSPECIFIED 12/18/2017 DEGRAFFENREID-ELAM, CINDY L Ot R39.89 OTHER SYMPTOMS AND SIGNS INVOLVING THE G 12/18/2017 DEGRAFFENREID-ELAM, CINDY L Ot Z87.898 PERSONAL HISTORY OF OTHER SPECIFIED COND 12/18/2017 DEGRAFFENREID-ELAM, CINDY L Ot N20.0 CALCULUS OF KIDNEY 12/18/2017 DEGRAFFENREID-ELAM, CINDY L Ot R14.0 ABDOMINAL DISTENSION (GASEOUS) 12/18/2017 DEGRAFFENREID-ELAM, CINDY L Ot R30.0 DYSURIA 12/18/2017 DEGRAFFENREID-ELAM, CINDY L Ot R31.9 HEMATURIA, UNSPECIFIED 12/18/2017 DEGRAFFENREID-CINDY ELAM Ot R39.89 OTHER SYMPTOMS AND SIGNS INVOLVING THE G 12/18/2017 CINDY RUSH Ot Z87.898 PERSONAL HISTORY OF OTHER SPECIFIED COND 12/18/2017 INESSA NEWTON APRN Ot F32 .9 MAJOR DEPRESSIVE DISORDER, SINGLE EPISOD 12/18/2017 INESSA NEWTON APRN Ot F41 .9 ANXIETY DISORDER, UNSPECIFIED 12/18/2017 INESSA NEWTON APRN Ot H11.002 UNSPECIFIED PTERYGIUM OF LEFT EYE 12/18/2017 INESSA NEWTON APRN Ot I10 ESSENTIAL (PRIMARY) HYPERTENSION 12/18/2017 INESSA NEWTON APRN Ot K21 .9 GASTRO-ESOPHAGEAL REFLUX DISEASE WITHOUT 12/18/2017 INESSA NEWTON APRN Ot N39 .0 URINARY TRACT INFECTION, SITE NOT SPECIF 12/18/2017 INESSA NEWTON APRN Ot R07.89 OTHER CHEST PAIN 12/18/2017 INESSA NEWTON APRN Ot R10 .9 UNSPECIFIED ABDOMINAL PAIN 12/18/2017 INESSA NEWTON APRN Ot R51 HEADACHE 12/18/2017 INESSA NEWTON APRN Ot Z79.84 SNF (CURRENT) USE OF ORAL HYPOGLYC 12/18/2017 INESSA NEWTON APRN Ot Z80 .8 FAMILY HISTORY OF MALIGNANT NEOPLASM OF 12/18/2017 INESSA NEWTON APRN Ot Z82.49 FAMILY HX OF ISCHEM HEART DIS AND OTH DI 12/18/2017 INESSA NEWTON APRN Ot Z85.46 PERSONAL HISTORY OF MALIGNANT NEOPLASM O 12/18/2017 INESSA NEWTON APRN Ot Z87.442 PERSONAL HISTORY OF URINARY CALCULI 12/18/2017 INESSA NEWTON APRN Ot Z90.89 ACQUIRED ABSENCE OF OTHER ORGANS 12/18/2017 LAINE TRAVIS, JENNIFER Mcdnoald Ot C61 MALIGNANT NEOPLASM OF PROSTATE 12/18/2017 PRIYANKA TRAVIS, VERONICA Ot C61 MALIGNANT NEOPLASM OF PROSTATE 12/18/2017 DEGCINDY YAÑEZ Ot N20.0 CALCULUS OF KIDNEY 12/18/2017 CINDY RUSH L Ot R14.0 ABDOMINAL DISTENSION (GASEOUS) 12/18/2017 DEGRAFFENREID-ELAM, CINDY L Ot R30.0 DYSURIA 12/18/2017 DEGRAFFENREID-ELAM, CINDY L Ot R31.9 HEMATURIA, UNSPECIFIED 12/18/2017 DEGRAFFENREID-ELAM, CINDY L Ot R39.89 OTHER SYMPTOMS AND SIGNS INVOLVING THE G 12/18/2017 DEGRAFFENREID-ELAM, CINDY L Ot Z87.898 PERSONAL HISTORY OF OTHER SPECIFIED COND 12/20/2017 INESSA NEWTON APRN Ot F32 .9 MAJOR DEPRESSIVE DISORDER, SINGLE EPISOD 12/20/2017 INESSA NEWTON APRN Ot F41 .9 ANXIETY DISORDER, UNSPECIFIED 12/20/2017 INESSA NEWTON APRN Ot H11.002 UNSPECIFIED PTERYGIUM OF LEFT EYE 12/20/2017 INESSA NEWTON APRN Ot I10 ESSENTIAL (PRIMARY) HYPERTENSION 12/20/2017 INESSA NEWTON APRN Ot K21 .9 GASTRO-ESOPHAGEAL REFLUX DISEASE WITHOUT 12/20/2017 INESSA NEWOTN APRN Ot N39 .0 URINARY TRACT INFECTION, SITE NOT SPECIF 12/20/2017 INESSA NEWTON APRN Ot R07.89 OTHER CHEST PAIN 12/20/2017 INESSA NEWTON APRN Ot R10 .9 UNSPECIFIED ABDOMINAL PAIN 12/20/2017 INESSA NEWTON APRN Ot R51 HEADACHE 12/20/2017 INESSA NEWTON APRN Ot Z79.84 SNF (CURRENT) USE OF ORAL HYPOGLYC 12/20/2017 INESSA NEWTON APRN Ot Z80 .8 FAMILY HISTORY OF MALIGNANT NEOPLASM OF 12/20/2017 INESSA NEWTON APRN Ot Z82.49 FAMILY HX OF ISCHEM HEART DIS AND OTH DI 12/20/2017 INESSA NEWTON APRN Ot Z85.46 PERSONAL HISTORY OF MALIGNANT NEOPLASM O 12/20/2017 INESSA NEWTON APRN Ot Z87.442 PERSONAL HISTORY OF URINARY CALCULI 12/20/2017 INESSA NEWTON APRN Ot Z90.89 ACQUIRED ABSENCE OF OTHER ORGANS 12/20/2017 LAINE TRAVIS, JENNIFER Mcdonald Ot C61 MALIGNANT NEOPLASM OF PROSTATE 12/20/2017 PRIYANKA TRAVIS, VERONICA Ot C61 MALIGNANT NEOPLASM OF PROSTATE 12/20/2017 DEGRAFFENREID-ELAM, CINDY L Ot N20.0 CALCULUS OF KIDNEY 12/20/2017 DEGRAFFENREID-ELAM, CINDY L Ot R14.0 ABDOMINAL DISTENSION (GASEOUS) 12/20/2017 DEGRAFFENREID-ELAM, CINDY L Ot R30.0 DYSURIA 12/20/2017 DEGRAFFENREID-ELAM, CINDY L Ot R31.9 HEMATURIA, UNSPECIFIED 12/20/2017 DEGRAFFENREID-ELAM, CINDY L Ot R39.89 OTHER SYMPTOMS AND SIGNS INVOLVING THE G 12/20/2017 DEGRAFFENREID-ELAM, CINDY L Ot Z87.898 PERSONAL HISTORY OF OTHER SPECIFIED COND 01/10/2018 DEGRAFFENREID-ELAM, CINDY L Ot K76.0 FATTY (CHANGE OF) LIVER, NOT ELSEWHERE C 01/10/2018 DEGRAFFENREID-ELAM, CINDY L Ot R19.00 INTRA-ABD AND PELVIC SWELLING, MASS AND 01/10/2018 DEGRAFFENREID-ELAM, CINDY L Ot Z90.49 ACQUIRED ABSENCE OF OTHER SPECIFIED PART 01/10/2018 DEGRAFFENREID-ELAM, CINDY L Ot K76.0 FATTY (CHANGE OF) LIVER, NOT ELSEWHERE C 01/10/2018 DEGRAFFENREID-ELAM, CINDY L Ot R19.09 OTHER INTRA-ABDOMINAL AND PELVIC SWELLIN 01/10/2018 DEGRAFFENREID-ELAM, CINDY L Ot Z90.49 ACQUIRED ABSENCE OF OTHER SPECIFIED PART 02/01/2018 DEGRAFFENREID-ELAM, CINDY L Ot K76.0 FATTY (CHANGE OF) LIVER, NOT ELSEWHERE C 02/01/2018 DEGRAFFENREID-ELAM, CINDY L Ot R19.09 OTHER INTRA-ABDOMINAL AND PELVIC SWELLIN 02/01/2018 DEGRAFFENREID-ELAM, CINDY L Ot Z90.49 ACQUIRED ABSENCE OF OTHER SPECIFIED PART 02/07/2018 DEGRAFFENREID-ELAM, CINDY L Ot K76.0 FATTY (CHANGE OF) LIVER, NOT ELSEWHERE C 02/07/2018 DEGRAFFENREID-ELAM, CINDY L Ot R19.09 OTHER INTRA-ABDOMINAL AND PELVIC SWELLIN 02/07/2018 DEGRAFFENREIKatey-CINDY ELAM Ot Z90.49 ACQUIRED ABSENCE OF OTHER SPECIFIED PART 05/02/2018 VERONICA MATHEW MD, Ot E11. 9 TYPE 2 DIABETES MELLITUS WITHOUT COMPLIC 05/02/2018 VERONICA MATHEW MD, Ot E61. 1 IRON DEFICIENCY 05/02/2018 VERONICA MATHEW MD, Ot E66. 9 OBESITY, UNSPECIFIED 05/02/2018 VERONICA MATHEW MD, Ot F10. 21 ALCOHOL DEPENDENCE, IN REMISSION 05/02/2018 VERONICA MATHEW MD, Ot I10 ESSENTIAL (PRIMARY) HYPERTENSION 05/02/2018 VERONICA MATHEW MD, Ot K29. 50 UNSPECIFIED CHRONIC GASTRITIS WITHOUT BL 05/02/2018 VERONICA MATHEW MD, Ot K44. 9 DIAPHRAGMATIC HERNIA WITHOUT OBSTRUCTION 05/02/2018 VERONICA MATHEW MD, Ot K76. 0 FATTY (CHANGE OF) LIVER, NOT ELSEWHERE C 05/02/2018 VERONICA MATHEW MD, Ot Z85. 46 PERSONAL HISTORY OF MALIGNANT NEOPLASM O 05/10/2018 VERONICA MATHEW MD, Ot E11. 9 TYPE 2 DIABETES MELLITUS WITHOUT COMPLIC 05/10/2018 VERONICA MATHEW MD Ot E61. 1 IRON DEFICIENCY 05/10/2018 VERONICA MATHEW MD Ot E66. 9 OBESITY, UNSPECIFIED 05/10/2018 VERONICA MATHEW MD, Ot F10. 21 ALCOHOL DEPENDENCE, IN REMISSION 05/10/2018 VERONICA MATHEW MD Ot I10 ESSENTIAL (PRIMARY) HYPERTENSION 05/10/2018 VERONICA MATHEW MD Ot K29. 50 UNSPECIFIED CHRONIC GASTRITIS WITHOUT BL 05/10/2018 VERONICA MATHEW MD, Ot K44. 9 DIAPHRAGMATIC HERNIA WITHOUT OBSTRUCTION 05/10/2018 VERONICA MATHEW MD, Ot K76. 0 FATTY (CHANGE OF) LIVER, NOT ELSEWHERE C 05/10/2018 VERONICA MATHEW MD, Ot Z85. 46 PERSONAL HISTORY OF MALIGNANT NEOPLASM O 05/10/2018 LAINE TRAVIS, JENNIFER Mcdonald Ot C61 MALIGNANT NEOPLASM OF PROSTATE 05/10/2018 DEGRAFFENREID-PAPA, CINDY L Ot N20.0 CALCULUS OF KIDNEY 05/10/2018 DEGRAFFENREIKatey-CINDY ELAM L Ot R14.0 ABDOMINAL DISTENSION (GASEOUS) 05/10/2018 DEGRAFFENREID-ELAM, CINDY L Ot R30.0 DYSURIA 05/10/2018 DEGRAFFENREID-ELAM, CINDY L Ot R31.9 HEMATURIA, UNSPECIFIED 05/10/2018 DEGRAFFENREID-ELAM, CINDY L Ot R39.89 OTHER SYMPTOMS AND SIGNS INVOLVING THE G 05/10/2018 DEGRAFFENREID-ELAM, CINDY L Ot Z87.898 PERSONAL HISTORY OF OTHER SPECIFIED COND 05/10/2018 DEGRAFFENREID-ELAM, CINDY L Ot K76.0 FATTY (CHANGE OF) LIVER, NOT ELSEWHERE C 05/10/2018 DEGRAFFENREID-ELAM, CINDY L Ot R19.09 OTHER INTRA-ABDOMINAL AND PELVIC SWELLIN 05/10/2018 DEGRAFFENREID-ELAM, CINYD L Ot Z90.49 ACQUIRED ABSENCE OF OTHER SPECIFIED PART 06/20/2018 VERONICA MATHEW MD, Ot E11. 9 TYPE 2 DIABETES MELLITUS WITHOUT COMPLIC 06/20/2018 VERONICA MATHEW MD Ot E61. 1 IRON DEFICIENCY 06/20/2018 VERONICA MATHEW MD Ot E66. 9 OBESITY, UNSPECIFIED 06/20/2018 VERONICA MATHEW MD Ot F10. 21 ALCOHOL DEPENDENCE, IN REMISSION 06/20/2018 VERONICA MATHEW MD Ot I10 ESSENTIAL (PRIMARY) HYPERTENSION 06/20/2018 VERONICA MATHEW MD Ot K29. 50 UNSPECIFIED CHRONIC GASTRITIS WITHOUT BL 06/20/2018 VERONICA MATHEW MD Ot K44. 9 DIAPHRAGMATIC HERNIA WITHOUT OBSTRUCTION 06/20/2018 VERONICA MATHEW MD, Ot K76. 0 FATTY (CHANGE OF) LIVER, NOT ELSEWHERE C 06/20/2018 VERONICA MATHEW MD Ot Z85. 46 PERSONAL HISTORY OF MALIGNANT NEOPLASM O 07/03/2018 VERONICA MATHEW MD Ot E11. 9 TYPE 2 DIABETES MELLITUS WITHOUT COMPLIC 07/03/2018 VERONICA MATHEW MD, Ot E61. 1 IRON DEFICIENCY 07/03/2018 VERONICA MATHEW MD Ot E66. 9 OBESITY, UNSPECIFIED 07/03/2018 VERONICA MATHEW MD Ot F10. 21 ALCOHOL DEPENDENCE, IN REMISSION 07/03/2018 XUN MD, PANIAGUA-JERAMIE Ot I10 ESSENTIAL (PRIMARY) HYPERTENSION 07/03/2018 VERONICA MATHEW MD Ot K29. 50 UNSPECIFIED CHRONIC GASTRITIS WITHOUT BL 07/03/2018 VERONICA MATHEW MD Ot K44. 9 DIAPHRAGMATIC HERNIA WITHOUT OBSTRUCTION 07/03/2018 VERONICA MATHEW MD Ot K76. 0 FATTY (CHANGE OF) LIVER, NOT ELSEWHERE C 07/03/2018 VERONICA MATHEW MD Ot Z85. 46 PERSONAL HISTORY OF MALIGNANT NEOPLASM O 07/05/2018 VERONICA MATHEW MD Ot E11. 9 TYPE 2 DIABETES MELLITUS WITHOUT COMPLIC 07/05/2018 VERONICA MATHEW MD Ot E61. 1 IRON DEFICIENCY 07/05/2018 VERONICA MATHEW MD Ot E66. 9 OBESITY, UNSPECIFIED 07/05/2018 VERONICA MATHEW MD Ot F10. 21 ALCOHOL DEPENDENCE, IN REMISSION 07/05/2018 VERONICA MATHEW MD Ot I10 ESSENTIAL (PRIMARY) HYPERTENSION 07/05/2018 VERONICA MATHEW MD Ot K29. 50 UNSPECIFIED CHRONIC GASTRITIS WITHOUT BL 07/05/2018 VERONICA MATHEW MD Ot K44. 9 DIAPHRAGMATIC HERNIA WITHOUT OBSTRUCTION 07/05/2018 VERONICA MATHEW MD Ot K76. 0 FATTY (CHANGE OF) LIVER, NOT ELSEWHERE C 07/05/2018 VERONICA MATHEW MD Ot Z85. 46 PERSONAL HISTORY OF MALIGNANT NEOPLASM O 07/24/2018 LAINE TRAVIS, JENNIFER Mcdonald Ot C61 MALIGNANT NEOPLASM OF PROSTATE 07/24/2018 VERONICA MATHEW MD Ot E11. 9 TYPE 2 DIABETES MELLITUS WITHOUT COMPLIC 07/24/2018 VERONICA MATHEW MD Ot E61. 1 IRON DEFICIENCY 07/24/2018 VEORNICA MATHEW MD Ot E66. 9 OBESITY, UNSPECIFIED 07/24/2018 VERONICA MATHEW MD Ot F10. 21 ALCOHOL DEPENDENCE, IN REMISSION 07/24/2018 VERONICA MATHEW MD Ot I10 ESSENTIAL (PRIMARY) HYPERTENSION 07/24/2018 VERONICA MATHEW MD Ot K29. 50 UNSPECIFIED CHRONIC GASTRITIS WITHOUT BL 07/24/2018 VERONICA MATHEW MD Ot K44. 9 DIAPHRAGMATIC HERNIA WITHOUT OBSTRUCTION 07/24/2018 VERONICA MATHEW MD Ot K76. 0 FATTY (CHANGE OF) LIVER, NOT ELSEWHERE C 07/24/2018 PRIYANKA TRAVIS, VERONICA Ot Z85. 46 PERSONAL HISTORY OF MALIGNANT NEOPLASM O 07/24/2018 DEGRAFFENREID-ELAM, CINDY L Ot N20.0 CALCULUS OF KIDNEY 07/24/2018 DEGRAFFENREID-ELAM, CINDY L Ot R14.0 ABDOMINAL DISTENSION (GASEOUS) 07/24/2018 DEGRAFFENREID-ELAM, CINDY L Ot R30.0 DYSURIA 07/24/2018 DEGRAFFENREID-ELAM, CINDY L Ot R31.9 HEMATURIA, UNSPECIFIED 07/24/2018 DEGRAFFENREID-ELAM, CINDY L Ot R39.89 OTHER SYMPTOMS AND SIGNS INVOLVING THE G 07/24/2018 DEGRAFFENREID-ELAM, CINDY L Ot Z87.898 PERSONAL HISTORY OF OTHER SPECIFIED COND 07/24/2018 DEGRAFFENREID-ELAM, CINDY L Ot K76.0 FATTY (CHANGE OF) LIVER, NOT ELSEWHERE C 07/24/2018 DEGRAFFENREID-ELAM, CINDY L Ot R19.09 OTHER INTRA-ABDOMINAL AND PELVIC SWELLIN 07/24/2018 DEGRAFFENREID-ELAM, CINDY L Ot Z90.49 ACQUIRED ABSENCE OF OTHER SPECIFIED PART 07/24/2018 BRITTNEY TRINIDAD DO Ot Z01.818 ENCOUNTER FOR OTHER PREPROCEDURAL EXAMIN 07/25/2018 BRITTNEY TRINIDAD DO Ot D50. 9 IRON DEFICIENCY ANEMIA, UNSPECIFIED 07/25/2018 BRITTNEY TRINIDAD DO Ot E11. 9 TYPE 2 DIABETES MELLITUS WITHOUT COMPLIC 07/25/2018 BRITTNEY TRINIDAD DO Ot I10 ESSENTIAL (PRIMARY) HYPERTENSION 07/25/2018 BRITTNEY TRINIDAD DO Ot K21. 9 GASTRO-ESOPHAGEAL REFLUX DISEASE WITHOUT 07/25/2018 BRITTNEY TRINIDAD DO Ot K25. 7 CHRONIC GASTRIC ULCER WITHOUT HEMORRHAGE 07/25/2018 BRITTNEY TRINIDAD DO Ot K44. 9 DIAPHRAGMATIC HERNIA WITHOUT OBSTRUCTION 07/25/2018 BRITTNEY TRINIDAD DO Ot Z79. 82 MANAGER TRADING (CURRENT) USE OF ASPIRIN 07/25/2018 BRITTNEY TRINIDAD DO Ot Z79. 84 MANAGER TRADING (CURRENT) USE OF ORAL HYPOGLYC 07/25/2018 BRITTNEY TRINIDAD DO Ot Z79.899 OTHER SNF (CURRENT) DRUG THERAPY 07/27/2018 BRITTNEY TRINIDAD DO Ot Z01.818 ENCOUNTER FOR OTHER PREPROCEDURAL EXAMIN 08/02/2018 BRITTNEY TRINIDAD DO D Ot D50. 9 IRON DEFICIENCY ANEMIA, UNSPECIFIED 08/02/2018 TRINIDAD DOBRITTNEY D Ot E11. 9 TYPE 2 DIABETES MELLITUS WITHOUT COMPLIC 08/02/2018 BRITTNEY TRINIDAD DO D Ot I10 ESSENTIAL (PRIMARY) HYPERTENSION 08/02/2018 BRITTNEY TRINIDAD DO D Ot K21. 9 GASTRO-ESOPHAGEAL REFLUX DISEASE WITHOUT 08/02/2018 BRITTNEY TRINIDAD DO D Ot K25. 7 CHRONIC GASTRIC ULCER WITHOUT HEMORRHAGE 08/02/2018 BRITTNEY TRINIDAD DO Ot K44. 9 DIAPHRAGMATIC HERNIA WITHOUT OBSTRUCTION 08/02/2018 BRITTNEY TRINIDAD DO Ot Z79. 82 SNF (CURRENT) USE OF ASPIRIN 08/02/2018 BRITTNEY TRINIDAD DO Ot Z79. 84 SNF (CURRENT) USE OF ORAL HYPOGLYC 08/02/2018 BRITTNEY TRINIDAD DO Ot Z79.899 OTHER SNF (CURRENT) DRUG THERAPY 08/03/2018 VERONICA MATHEW MD Ot E11. 9 TYPE 2 DIABETES MELLITUS WITHOUT COMPLIC 08/03/2018 VERONICA MATHEW MD Ot E61. 1 IRON DEFICIENCY 08/03/2018 VERONICA MATHEW MD Ot E66. 9 OBESITY, UNSPECIFIED 08/03/2018 VEORNICA MATHEW MD Ot F10. 21 ALCOHOL DEPENDENCE, IN REMISSION 08/03/2018 VERONICA MATHEW MD Ot I10 ESSENTIAL (PRIMARY) HYPERTENSION 08/03/2018 VERONICA MATHEW MD Ot K29. 50 UNSPECIFIED CHRONIC GASTRITIS WITHOUT BL 08/03/2018 VERONICA MATHEW MD Ot K44. 9 DIAPHRAGMATIC HERNIA WITHOUT OBSTRUCTION 08/03/2018 VERONICA MATHEW MD Ot K76. 0 FATTY (CHANGE OF) LIVER, NOT ELSEWHERE C 08/03/2018 VERONICA MATHEW MD Ot Z85. 46 PERSONAL HISTORY OF MALIGNANT NEOPLASM O 08/06/2018 BRITTNEY TRINIDAD DO Ot D50. 9 IRON DEFICIENCY ANEMIA, UNSPECIFIED 08/06/2018 BRITTNEY TRINIDAD DO Ot E11. 9 TYPE 2 DIABETES MELLITUS WITHOUT COMPLIC 08/06/2018 TRINIDAD DOBRITTNEY Ot I10 ESSENTIAL (PRIMARY) HYPERTENSION 08/06/2018 TRINIDAD DOBRITTNEY D Ot K21. 9 GASTRO-ESOPHAGEAL REFLUX DISEASE WITHOUT 08/06/2018 TRINIDAD DOBRITTNEY D Ot K25. 7 CHRONIC GASTRIC ULCER WITHOUT HEMORRHAGE 08/06/2018 TRINIDAD DOBRITTNEY Ot K44. 9 DIAPHRAGMATIC HERNIA WITHOUT OBSTRUCTION 08/06/2018 TRINIDAD DOBRITTNEY D Ot Z79. 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 9 TYPE 2 DIABETES MELLITUS WITHOUT COMPLIC 08/08/2018 VERONICA MATHEW MD, Ot E61. 1 IRON DEFICIENCY 08/08/2018 VERONICA MATHEW MD, Ot E66. 9 OBESITY, UNSPECIFIED 08/08/2018 VERONICA MATHEW MD, Ot F10. 21 ALCOHOL DEPENDENCE, IN REMISSION 08/08/2018 VERONICA MATHEW MD Ot I10 ESSENTIAL (PRIMARY) HYPERTENSION 08/08/2018 VERONICA MATHEW MD, Ot K29. 50 UNSPECIFIED CHRONIC GASTRITIS WITHOUT BL 08/08/2018 VERONICA MATHEW MD, Ot K44. 9 DIAPHRAGMATIC HERNIA WITHOUT OBSTRUCTION 08/08/2018 VERONICA MATHEW MD, Ot K76. 0 FATTY (CHANGE OF) LIVER, NOT ELSEWHERE C 08/08/2018 VERONICA MATHEW MD, Ot Z85. 46 PERSONAL HISTORY OF MALIGNANT NEOPLASM O 08/09/2018 VERONICA MATHEW MD, Ot E11. 9 TYPE 2 DIABETES MELLITUS WITHOUT COMPLIC 08/09/2018 VERONICA MATHEW MD, Ot E61. 1 IRON DEFICIENCY 08/09/2018 VERONICA MATHEW MD, Ot E66. 9 OBESITY, UNSPECIFIED 08/09/2018 VERONICA MATHEW MD, Ot F10. 21 ALCOHOL DEPENDENCE, IN REMISSION 08/09/2018 VERONICA MATHEW MD Ot I10 ESSENTIAL (PRIMARY) HYPERTENSION 08/09/2018 VERONICA MATHEW MD Ot K29. 50 UNSPECIFIED CHRONIC GASTRITIS WITHOUT BL 08/09/2018 VERONICA MATHEW MD, Ot K44. 9 DIAPHRAGMATIC HERNIA WITHOUT OBSTRUCTION 08/09/2018 VERONICA MATHEW MD, Ot K76. 0 FATTY (CHANGE OF) LIVER, NOT ELSEWHERE C 08/09/2018 VERONICA MATHEW MD, Ot Z85. 46 PERSONAL HISTORY OF MALIGNANT NEOPLASM O 08/15/2018 VERONICA MATHEW MD Ot E11. 9 TYPE 2 DIABETES MELLITUS WITHOUT COMPLIC 08/15/2018 VERONICA MATHEW MD, Ot E61. 1 IRON DEFICIENCY 08/15/2018 VERONICA MATHEW MD, Ot E66. 9 OBESITY, UNSPECIFIED 08/15/2018 VERONICA MATHEW MD Ot F10. 21 ALCOHOL DEPENDENCE, IN REMISSION 08/15/2018 VERONICA MATHEW MD, Ot I10 ESSENTIAL (PRIMARY) HYPERTENSION 08/15/2018 VERONICA MATHEW MD, Ot K29. 50 UNSPECIFIED CHRONIC GASTRITIS WITHOUT BL 08/15/2018 VERONICA MATHEW MD, Ot K44. 9 DIAPHRAGMATIC HERNIA WITHOUT OBSTRUCTION 08/15/2018 VERONICA MATHEW MD, Ot K76. 0 FATTY (CHANGE OF) LIVER, NOT ELSEWHERE C 08/15/2018 VERONICA MATHEW MD, Ot Z85. 46 PERSONAL HISTORY OF MALIGNANT NEOPLASM O 09/07/2018 SHAWN THOMAS APRN Ot E11.21 TYPE 2 DIABETES MELLITUS WITH DIABETIC N 09/07/2018 SHAWN THOMAS APRN Ot I10 ESSENTIAL (PRIMARY) HYPERTENSION 09/14/2018 VERONICA MATHEW MD Ot E11. 9 TYPE 2 DIABETES MELLITUS WITHOUT COMPLIC 09/14/2018 VERONICA MATHEW MD, Ot E61. 1 IRON DEFICIENCY 09/14/2018 VERONICA MATHEW MD Ot E66. 9 OBESITY, UNSPECIFIED 09/14/2018 VERNOICA MATHEW MD, Ot F10. 21 ALCOHOL DEPENDENCE, IN REMISSION 09/14/2018 VERONICA MATHEW MD Ot I10 ESSENTIAL (PRIMARY) HYPERTENSION 09/14/2018 VERONICA MATHEW MD, Ot K29. 50 UNSPECIFIED CHRONIC GASTRITIS WITHOUT BL 09/14/2018 VERONICA MATHEW MD, Ot K44. 9 DIAPHRAGMATIC HERNIA WITHOUT OBSTRUCTION 09/14/2018 VERONICA MATHEW MD, Ot K76. 0 FATTY (CHANGE OF) LIVER, NOT ELSEWHERE C 09/14/2018 VERONICA MATHEW MD, Ot Z85. 46 PERSONAL HISTORY OF MALIGNANT NEOPLASM O 09/27/2018 VERONICA MATHEW MD Ot E11. 9 TYPE 2 DIABETES MELLITUS WITHOUT COMPLIC 09/27/2018 VERONICA MATHEW MD, Ot E61. 1 IRON DEFICIENCY 09/27/2018 VERONICA MATHEW MD, Ot E66. 9 OBESITY, UNSPECIFIED 09/27/2018 VERONICA MATHEW MD, Ot F10. 21 ALCOHOL DEPENDENCE, IN REMISSION 09/27/2018 VERONICA MATHEW MD, Ot I10 ESSENTIAL (PRIMARY) HYPERTENSION 09/27/2018 VERONICA MATHEW MD, Ot K29. 50 UNSPECIFIED CHRONIC GASTRITIS WITHOUT BL 09/27/2018 VERONICA MATHEW MD, Ot K44. 9 DIAPHRAGMATIC HERNIA WITHOUT OBSTRUCTION 09/27/2018 VERONICA MATHEW MD, Ot K76. 0 FATTY (CHANGE OF) LIVER, NOT ELSEWHERE C 09/27/2018 VERONICA MATHEW MD, Ot Z85. 46 PERSONAL HISTORY OF MALIGNANT NEOPLASM O 11/14/2018 VERONICA MATHEW MD, Ot E11. 21 TYPE 2 DIABETES MELLITUS WITH DIABETIC N 11/14/2018 VERONICA MATHEW MD Ot E61. 1 IRON DEFICIENCY 11/14/2018 VERONICA MATHEW MD Ot E66. 9 OBESITY, UNSPECIFIED 11/14/2018 VERONICA MATHEW MD, Ot F10. 21 ALCOHOL DEPENDENCE, IN REMISSION 11/14/2018 VERONICA MATHEW MD Ot I10 ESSENTIAL (PRIMARY) HYPERTENSION 11/14/2018 VERONICA MATHEW MD, Ot K29. 50 UNSPECIFIED CHRONIC GASTRITIS WITHOUT BL 11/14/2018 VERONICA MATHEW MD, Ot K44. 9 DIAPHRAGMATIC HERNIA WITHOUT OBSTRUCTION 11/14/2018 VERONICA MATHEW MD, Ot K76. 0 FATTY (CHANGE OF) LIVER, NOT ELSEWHERE C 11/14/2018 VERONICA MATHEW MD, Ot Z68. 30 BODY MASS INDEX (BMI) 30.0-30.9, ADULT 11/14/2018 VERONICA MATHEW MD, Ot Z79. 82 MANAGER TRADING (CURRENT) USE OF ASPIRIN 11/14/2018 VERONICA MATHEW MD, Ot Z79. 84 SNF (CURRENT) USE OF ORAL HYPOGLYC 11/14/2018 VERONICA MATHEW MD, Ot Z79.899 OTHER SNF (CURRENT) DRUG THERAPY 11/14/2018 VERONICA MATHEW MD, Ot Z85. 46 PERSONAL HISTORY OF MALIGNANT NEOPLASM O 11/16/2018 VERONICA MATHEW MD, Ot E11. 21 TYPE 2 DIABETES MELLITUS WITH DIABETIC N 11/16/2018 VERONICA MATHEW MD, Ot E61. 1 IRON DEFICIENCY 11/16/2018 VERONICA MATHEW MD, Ot E66. 9 OBESITY, UNSPECIFIED 11/16/2018 VERONICA MATHEW MD, Ot F10. 21 ALCOHOL DEPENDENCE, IN REMISSION 11/16/2018 VERONICA MATHEW MD, Ot I10 ESSENTIAL (PRIMARY) HYPERTENSION 11/16/2018 VERONICA MATHEW MD, Ot K29. 50 UNSPECIFIED CHRONIC GASTRITIS WITHOUT BL 11/16/2018 VERONICA MATHEW MD, Ot K44. 9 DIAPHRAGMATIC HERNIA WITHOUT OBSTRUCTION 11/16/2018 VERONICA MATHEW MD, Ot K76. 0 FATTY (CHANGE OF) LIVER, NOT ELSEWHERE C 11/16/2018 VERONICA MATHEW MD, Ot Z68. 30 BODY MASS INDEX (BMI) 30.0-30.9, ADULT 11/16/2018 VERONICA MATHEW MD, Ot Z79. 82 MANAGER TRADING (CURRENT) USE OF ASPIRIN 11/16/2018 VERONICA MATHEW MD, Ot Z79. 84 MANAGER TRADING (CURRENT) USE OF ORAL HYPOGLYC 11/16/2018 VERONICA MATHEW MD, Ot Z79.899 OTHER SNF (CURRENT) DRUG THERAPY 11/16/2018 VERONICA MATHEW MD, Ot Z85. 46 PERSONAL HISTORY OF MALIGNANT NEOPLASM O 12/15/2018 LAINE TRAVIS, JENNIFER Mcdonald Ot C61 MALIGNANT NEOPLASM OF PROSTATE 12/15/2018 DEGRAFFENREID-ELAM, CINDY L Ot N20.0 CALCULUS OF KIDNEY 12/15/2018 DEGRAFFENREID-ELAM, CINDY L Ot R14.0 ABDOMINAL DISTENSION (GASEOUS) 12/15/2018 DEGRAFFENREID-ELAM, CINDY L Ot R30.0 DYSURIA 12/15/2018 DEGRAFFENREID-ELAM, CINDY L Ot R31.9 HEMATURIA, UNSPECIFIED 12/15/2018 DEGRAFFENREID-ELAM, CINDY L Ot R39.89 OTHER SYMPTOMS AND SIGNS INVOLVING THE G 12/15/2018 DEGRAFFENREID-ELAM, CINDY L Ot Z87.898 PERSONAL HISTORY OF OTHER SPECIFIED COND 12/15/2018 DEGRAFFENREID-ELAM, CINDY L Ot K76.0 FATTY (CHANGE OF) LIVER, NOT ELSEWHERE C 12/15/2018 DEGRAFFENREID-ELAM, CINDY L Ot R19.09 OTHER INTRA-ABDOMINAL AND PELVIC SWELLIN 12/15/2018 DEGRAFFENREID-ELAM, CINDY L Ot Z90.49 ACQUIRED ABSENCE OF OTHER SPECIFIED PART 12/15/2018 SHAWN THOMAS APRN Ot E11.21 TYPE 2 DIABETES MELLITUS WITH DIABETIC N 12/15/2018 SHAWN THOMAS APRN Ot I10 ESSENTIAL (PRIMARY) HYPERTENSION 12/15/2018 VERONICA MATHEW MD, Ot E11. 21 TYPE 2 DIABETES MELLITUS WITH DIABETIC N 12/15/2018 VERONICA MATHEW MD, Ot E61. 1 IRON DEFICIENCY 12/15/2018 VERONICA MATHEW MD, Ot E66. 9 OBESITY, UNSPECIFIED 12/15/2018 VERONICA MATHEW MD, Ot F10. 21 ALCOHOL DEPENDENCE, IN REMISSION 12/15/2018 VERONICA MATHEW MD, Ot I10 ESSENTIAL (PRIMARY) HYPERTENSION 12/15/2018 VERONICA MATHEW MD Ot K29. 50 UNSPECIFIED CHRONIC GASTRITIS WITHOUT BL 12/15/2018 VERONICA MATHEW MD, Ot K44. 9 DIAPHRAGMATIC HERNIA WITHOUT OBSTRUCTION 12/15/2018 VERONICA MATHEW MD, Ot K76. 0 FATTY (CHANGE OF) LIVER, NOT ELSEWHERE C 12/15/2018 VERONICA MATHEW MD, Ot Z85. 46 PERSONAL HISTORY OF MALIGNANT NEOPLASM O 12/19/2018 BRITTNEY TRINIDAD DO Ot K44. 9 DIAPHRAGMATIC HERNIA WITHOUT OBSTRUCTION 01/09/2019 BRITTNEY TRINIDAD DO Ot K44. 9 DIAPHRAGMATIC HERNIA WITHOUT OBSTRUCTION 01/16/2019 BRITTNEY TRINIDAD DO Ot K44. 9 DIAPHRAGMATIC HERNIA WITHOUT OBSTRUCTION 04/16/2019 VERONICA MATHEW MD, Ot E11. 21 TYPE 2 DIABETES MELLITUS WITH DIABETIC N 04/16/2019 VERONICA MATHEW MD, Ot E61. 1 IRON DEFICIENCY 04/16/2019 VERONICA MATHEW MD, Ot E66. 9 OBESITY, UNSPECIFIED 04/16/2019 XUN MD, PANIAGUA-JERAMIE Ot F10. 21 ALCOHOL DEPENDENCE, IN REMISSION 04/16/2019 VERONICA MATHEW MD Ot I10 ESSENTIAL (PRIMARY) HYPERTENSION 04/16/2019 VERONICA MATHEW MD, Ot K29. 50 UNSPECIFIED CHRONIC GASTRITIS WITHOUT BL 04/16/2019 VERONICA MATHEW MD Ot K44. 9 DIAPHRAGMATIC HERNIA WITHOUT OBSTRUCTION 04/16/2019 VERONICA MATHEW MD Ot K76. 0 FATTY (CHANGE OF) LIVER, NOT ELSEWHERE C 04/16/2019 VERONICA MATHEW MD, Ot Z85. 46 PERSONAL HISTORY OF MALIGNANT NEOPLASM O 04/23/2019 VERONICA MATHEW MD Ot E11. 21 TYPE 2 DIABETES MELLITUS WITH DIABETIC N 04/23/2019 VERONICA MATHEW MD Ot E61. 1 IRON DEFICIENCY 04/23/2019 VERONICA MATHEW MD Ot E66. 9 OBESITY, UNSPECIFIED 04/23/2019 VERONICA MATHEW MD Ot F10. 21 ALCOHOL DEPENDENCE, IN REMISSION 04/23/2019 VERONICA MATHEW MD, Ot I10 ESSENTIAL (PRIMARY) HYPERTENSION 04/23/2019 VERONICA MATHEW MD, Ot K29. 50 UNSPECIFIED CHRONIC GASTRITIS WITHOUT BL 04/23/2019 VERONICA MATHEW MD, Ot K44. 9 DIAPHRAGMATIC HERNIA WITHOUT OBSTRUCTION 04/23/2019 VERONICA MATHEW MD, Ot K76. 0 FATTY (CHANGE OF) LIVER, NOT ELSEWHERE C 04/23/2019 VERONICA MATHEW MD, Ot Z85. 46 PERSONAL HISTORY OF MALIGNANT NEOPLASM O 05/08/2019 VERONICA MATHEW MD Ot E11. 21 TYPE 2 DIABETES MELLITUS WITH DIABETIC N 05/08/2019 VERONICA MATHEW MD Ot E61. 1 IRON DEFICIENCY 05/08/2019 VERONICA MATHEW MD Ot E66. 9 OBESITY, UNSPECIFIED 05/08/2019 VERONICA MATHEW MD Ot F10. 21 ALCOHOL DEPENDENCE, IN REMISSION 05/08/2019 VERONICA MATHEW MD Ot I10 ESSENTIAL (PRIMARY) HYPERTENSION 05/08/2019 VERONICA MATHEW MD Ot K29. 50 UNSPECIFIED CHRONIC GASTRITIS WITHOUT BL 05/08/2019 VERONICA MATHEW MD Ot K44. 9 DIAPHRAGMATIC HERNIA WITHOUT OBSTRUCTION 05/08/2019 VERONICA MATHEW MD Ot K76. 0 FATTY (CHANGE OF) LIVER, NOT ELSEWHERE C 05/08/2019 VERONICA MATHEW MD, Ot Z85. 46 PERSONAL HISTORY OF MALIGNANT NEOPLASM O 05/14/2019 VERONICA MATHEW MD Ot E11. 21 TYPE 2 DIABETES MELLITUS WITH DIABETIC N 05/14/2019 VERONICA MATHEW MD Ot E61. 1 IRON DEFICIENCY 05/14/2019 VERONICA MATHEW MD, Ot E66. 9 OBESITY, UNSPECIFIED 05/14/2019 VERONICA MATHEW MD Ot F10. 21 ALCOHOL DEPENDENCE, IN REMISSION 05/14/2019 VERONICA MATHEW MD Ot I10 ESSENTIAL (PRIMARY) HYPERTENSION 05/14/2019 VERONICA MATHEW MD, Ot K29. 50 UNSPECIFIED CHRONIC GASTRITIS WITHOUT BL 05/14/2019 VERONICA MATHEW MD, Ot K44. 9 DIAPHRAGMATIC HERNIA WITHOUT OBSTRUCTION 05/14/2019 VERONICA MATHEW MD Ot K76. 0 FATTY (CHANGE OF) LIVER, NOT ELSEWHERE C 05/14/2019 VERONICA MATHEW MD, Ot Z85. 46 PERSONAL HISTORY OF MALIGNANT NEOPLASM O 05/15/2019 VERONICA MATHEW MD, Ot E11. 21 TYPE 2 DIABETES MELLITUS WITH DIABETIC N 05/15/2019 VERONICA MATHEW MD Ot E61. 1 IRON DEFICIENCY 05/15/2019 VERONICA MATHEW MD Ot E66. 9 OBESITY, UNSPECIFIED 05/15/2019 VERONICA MATHEW MD, Ot F10. 21 ALCOHOL DEPENDENCE, IN REMISSION 05/15/2019 VERONICA MATHEW MD Ot I10 ESSENTIAL (PRIMARY) HYPERTENSION 05/15/2019 VERONICA MATHEW MD Ot K29. 50 UNSPECIFIED CHRONIC GASTRITIS WITHOUT BL 05/15/2019 VERONICA MATHEW MD, Ot K44. 9 DIAPHRAGMATIC HERNIA WITHOUT OBSTRUCTION 05/15/2019 VERONICA AMTHEW MD, Ot K76. 0 FATTY (CHANGE OF) LIVER, NOT ELSEWHERE C 05/15/2019 VERONICA MATHEW MD, Ot Z85. 46 PERSONAL HISTORY OF MALIGNANT NEOPLASM O 08/07/2019 LAINE TRAVIS, JENNIFER Mcdonald Ot C61 MALIGNANT NEOPLASM OF PROSTATE 08/07/2019 DEGRAFFENREID-ELAM, CINDY L Ot N20.0 CALCULUS OF KIDNEY 08/07/2019 DEGRAFFENREID-ELAM, CINDY L Ot R14.0 ABDOMINAL DISTENSION (GASEOUS) 08/07/2019 DEGRAFFENREID-ELAM, CINDY L Ot R30.0 DYSURIA 08/07/2019 DEGRAFFENREID-ELAM, CINDY L Ot R31.9 HEMATURIA, UNSPECIFIED 08/07/2019 DEGRAFFENREID-ELAM, CINDY L Ot R39.89 OTHER SYMPTOMS AND SIGNS INVOLVING THE G 08/07/2019 DEGRAFFENREID-ELAM, CINDY L Ot Z87.898 PERSONAL HISTORY OF OTHER SPECIFIED COND 08/07/2019 DEGRAFFENREID-ELAM, CINDY L Ot K76.0 FATTY (CHANGE OF) LIVER, NOT ELSEWHERE C 08/07/2019 DEGRAFFENREID-ELAM, CINDY L Ot R19.09 OTHER INTRA-ABDOMINAL AND PELVIC SWELLIN 08/07/2019 DEGRAFFENREID-ELAM, CINDY L Ot Z90.49 ACQUIRED ABSENCE OF OTHER SPECIFIED PART 08/07/2019 SHAWN THOMAS APRN Ot E11.21 TYPE 2 DIABETES MELLITUS WITH DIABETIC N 08/07/2019 SHAWN THOMAS APRN Ot I10 ESSENTIAL (PRIMARY) HYPERTENSION 08/07/2019 BRITTNEY TRINIDAD DO Ot K44. 9 DIAPHRAGMATIC HERNIA WITHOUT OBSTRUCTION 08/07/2019 VERONICA MATHEW MD Ot E11. 21 TYPE 2 DIABETES MELLITUS WITH DIABETIC N 08/07/2019 VERONICA MATHEW MD Ot E61. 1 IRON DEFICIENCY 08/07/2019 VERONICA MATHEW MD, Ot E66. 9 OBESITY, UNSPECIFIED 08/07/2019 VERONICA MATHEW MD Ot F10. 21 ALCOHOL DEPENDENCE, IN REMISSION 08/07/2019 VERONICA MATHEW MD Ot I10 ESSENTIAL (PRIMARY) HYPERTENSION 08/07/2019 VERONICA MATHEW MD Ot K29. 50 UNSPECIFIED CHRONIC GASTRITIS WITHOUT BL 08/07/2019 VERONICA MATHEW MD, Ot K44. 9 DIAPHRAGMATIC HERNIA WITHOUT OBSTRUCTION 08/07/2019 VERONICA MATHEW MD, Ot K76. 0 FATTY (CHANGE OF) LIVER, NOT ELSEWHERE C 08/07/2019 VERONICA MATHEW MD Ot Z85. 46 PERSONAL HISTORY OF MALIGNANT NEOPLASM O 08/14/2019 LAINE TRAVIS, JENNIFER Mcdonald Ot C61 MALIGNANT NEOPLASM OF PROSTATE 08/14/2019 DEGRAFFENREID-ELAM, CINDY L Ot N20.0 CALCULUS OF KIDNEY 08/14/2019 DEGRAFFENREID-ELAM, CINDY L Ot R14.0 ABDOMINAL DISTENSION (GASEOUS) 08/14/2019 DEGRAFFENREID-ELAM, CINDY L Ot R30.0 DYSURIA 08/14/2019 DEGRAFFENREID-ELAM, CINDY L Ot R31.9 HEMATURIA, UNSPECIFIED 08/14/2019 DEGRAFFENREID-ELAM, CINDY L Ot R39.89 OTHER SYMPTOMS AND SIGNS INVOLVING THE G 08/14/2019 DEGRAFFENREID-ELAM, CINDY L Ot Z87.898 PERSONAL HISTORY OF OTHER SPECIFIED COND 08/14/2019 DEGRAFFENREID-ELAM, CINDY L Ot K76.0 FATTY (CHANGE OF) LIVER, NOT ELSEWHERE C 08/14/2019 DEGRAFFENREID-ELAM, CINDY L Ot R19.09 OTHER INTRA-ABDOMINAL AND PELVIC SWELLIN 08/14/2019 DEGRAFFENREID-ELAM, CINDY L Ot Z90.49 ACQUIRED ABSENCE OF OTHER SPECIFIED PART 08/14/2019 SHAWN THOMAS APRN Ot E11.21 TYPE 2 DIABETES MELLITUS WITH DIABETIC N 08/14/2019 SHAWN THOMAS APRN Ot I10 ESSENTIAL (PRIMARY) HYPERTENSION 08/14/2019 BRITTNEY TRINIDAD DO Ot K44. 9 DIAPHRAGMATIC HERNIA WITHOUT OBSTRUCTION 08/14/2019 VERONICA MATHEW MD Ot E11. 21 TYPE 2 DIABETES MELLITUS WITH DIABETIC N 08/14/2019 VERONICA MATHEW MD Ot E61. 1 IRON DEFICIENCY 08/14/2019 VERONICA MATHEW MD, Ot E66. 9 OBESITY, UNSPECIFIED 08/14/2019 VERONICA MATHEW MD Ot F10. 21 ALCOHOL DEPENDENCE, IN REMISSION 08/14/2019 VERONICA MATHEW MD Ot I10 ESSENTIAL (PRIMARY) HYPERTENSION 08/14/2019 VERONICA MATHEW MD Ot K29. 50 UNSPECIFIED CHRONIC GASTRITIS WITHOUT BL 08/14/2019 VERONICA MATHEW MD, Ot K44. 9 DIAPHRAGMATIC HERNIA WITHOUT OBSTRUCTION 08/14/2019 VERONICA MATHEW MD, Ot K76. 0 FATTY (CHANGE OF) LIVER, NOT ELSEWHERE C 08/14/2019 VERONICA MATHEW MD Ot Z85. 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 84 EXAM PRE-OPERATIVE NOS 08/27/2019 HELLWIG, MIGUEL E WIRE DRAWER Ot I65.23 OCCLUSION AND STENOSIS OF BILATERAL [place] 08/27/2019 HELLWIG, MIGUEL E WIRE DRAWER Ot M79.605 PAIN IN LEFT LEG 08/29/2019 JENNIFER JANG MD Ot N20.0 CALCULUS OF KIDNEY 08/29/2019 JENNIFER JANG MD Ot Z90.4 9 ACQUIRED ABSENCE OF OTHER SPECIFIED PART 09/14/2019 SHAWN THOMAS WIRE DRAWER Ot M25.78 OSTEOPHYTE, VERTEBRAE 09/14/2019 SHAWN THOMAS WIRE DRAWER Ot M47.812 SPONDYLOSIS W/O MYELOPATHY OR RADICULOPA 09/14/2019 SHAWN THOMAS APRN Ot M48.03 SPINAL STENOSIS, CERVICOTHORACIC REGION 09/25/2019 JENNIFER JANG MD, Ot N20.0 CALCULUS OF KIDNEY 09/25/2019 JENNIFER JANG MD, Ot Z90.4 9 ACQUIRED ABSENCE OF OTHER SPECIFIED PART 09/26/2019 SHAWN THOMAS APRN Ot M25.78 OSTEOPHYTE, VERTEBRAE 09/26/2019 SHAWN THOMAS APRN Ot M47.812 SPONDYLOSIS W/O MYELOPATHY OR RADICULOPA 09/26/2019 SHAWN THOMAS APRN Ot M48.03 SPINAL STENOSIS, CERVICOTHORACIC REGION 09/28/2019 JENNIFER JANG MD, Ot N20.0 CALCULUS OF KIDNEY 09/28/2019 JENNIFER JANG MD, Ot Z90.4 9 ACQUIRED ABSENCE OF OTHER SPECIFIED PART 10/02/2019 VERONICA MATHEW MD Ot E11. 21 TYPE 2 DIABETES MELLITUS WITH DIABETIC N 10/02/2019 VERONICA MATHEW MD, Ot E61. 1 IRON DEFICIENCY 10/02/2019 VERONICA MATHEW MD, Ot E66. 9 OBESITY, UNSPECIFIED 10/02/2019 VERONICA MATHEW MD, Ot F10. 21 ALCOHOL DEPENDENCE, IN REMISSION 10/02/2019 VERONICA MATHEW MD, Ot I10 ESSENTIAL (PRIMARY) HYPERTENSION 10/02/2019 VERONICA MATHEW MD, Ot K29. 50 UNSPECIFIED CHRONIC GASTRITIS WITHOUT BL 10/02/2019 VERONICA MATHEW MD, Ot K44. 9 DIAPHRAGMATIC HERNIA WITHOUT OBSTRUCTION 10/02/2019 VERONICA MATHEW MD, Ot K76. 0 FATTY (CHANGE OF) LIVER, NOT ELSEWHERE C 10/02/2019 VERONICA MATHEW MD, Ot Z68. 30 BODY MASS INDEX (BMI) 30.0-30.9, ADULT 10/02/2019 VERONICA MATHEW MD, Ot Z79. 82 MANAGER TRADING (CURRENT) USE OF ASPIRIN 10/02/2019 VERONICA MATHEW MD, Ot Z79. 84 SNF (CURRENT) USE OF ORAL HYPOGLYC 10/02/2019 VERONICA MATHEW MD, Ot Z79.899 OTHER SNF (CURRENT) DRUG THERAPY 10/02/2019 VERONICA MATHEW MD, Ot Z85. 46 PERSONAL HISTORY OF MALIGNANT NEOPLASM O 10/04/2019 VERONICA MATHEW MD Ot E11. 21 TYPE 2 DIABETES MELLITUS WITH DIABETIC N 10/04/2019 VERONICA MATHEW MD, Ot E61. 1 IRON DEFICIENCY 10/04/2019 VERONICA MATHEW MD, Ot E66. 9 OBESITY, UNSPECIFIED 10/04/2019 VERONICA MATHEW MD, Ot F10. 21 ALCOHOL DEPENDENCE, IN REMISSION 10/04/2019 VERONICA MATHEW MD, Ot I10 ESSENTIAL (PRIMARY) HYPERTENSION 10/04/2019 VERONICA MATHEW MD, Ot K29. 50 UNSPECIFIED CHRONIC GASTRITIS WITHOUT BL 10/04/2019 VERONICA MATHEW MD, Ot K44. 9 DIAPHRAGMATIC HERNIA WITHOUT OBSTRUCTION 10/04/2019 VERONICA MATHEW MD, Ot K76. 0 FATTY (CHANGE OF) LIVER, NOT ELSEWHERE C 10/04/2019 VERONICA MATHEW MD, Ot Z68. 30 BODY MASS INDEX (BMI) 30.0-30.9, ADULT 10/04/2019 VERONICA MATHEW MD, Ot Z79. 82 SNF (CURRENT) USE OF ASPIRIN 10/04/2019 VERONICA MATHEW MD, Ot Z79. 84 SNF (CURRENT) USE OF ORAL HYPOGLYC 10/04/2019 VERONICA MATHEW MD, Ot Z79.899 OTHER SNF (CURRENT) DRUG THERAPY 10/04/2019 VERONICA MATHEW MD, Ot Z85. 46 PERSONAL HISTORY OF MALIGNANT NEOPLASM O 11/25/2019 VERONICA MATHEW MD, Ot E11. 21 TYPE 2 DIABETES MELLITUS WITH DIABETIC N 11/25/2019 VERONICA MATHEW MD, Ot E61. 1 IRON DEFICIENCY 11/25/2019 VERONICA MATHEW MD, Ot E66. 9 OBESITY, UNSPECIFIED 11/25/2019 VERONICA MATHEW MD, Ot F10. 21 ALCOHOL DEPENDENCE, IN REMISSION 11/25/2019 VERONICA MATHEW MD, Ot I10 ESSENTIAL (PRIMARY) HYPERTENSION 11/25/2019 VERONICA MATHEW MD, Ot K29. 50 UNSPECIFIED CHRONIC GASTRITIS WITHOUT BL 11/25/2019 VERONICA MATHEW MD, Ot K44. 9 DIAPHRAGMATIC HERNIA WITHOUT OBSTRUCTION 11/25/2019 VERONICA MATHEW MD, Ot K76. 0 FATTY (CHANGE OF) LIVER, NOT ELSEWHERE C 11/25/2019 VERONICA MATHEW MD Ot Z68. 30 BODY MASS INDEX (BMI) 30.0-30.9, ADULT 11/25/2019 VERONICA MATHEW MD, Ot Z79. 82 SNF (CURRENT) USE OF ASPIRIN 11/25/2019 VERONICA MATHEW MD, Ot Z79. 84 MANAGER TRADING (CURRENT) USE OF ORAL HYPOGLYC 11/25/2019 VERONICA MATHEW MD, Ot Z79.899 OTHER MANAGER TRADING (CURRENT) DRUG THERAPY 11/25/2019 VERONICA MATHEW MD, Ot Z85. 46 PERSONAL HISTORY OF MALIGNANT NEOPLASM O 11/27/2019 VERONICA MATHEW MD Ot E11. 21 TYPE 2 DIABETES MELLITUS WITH DIABETIC N 11/27/2019 VERONICA MATHEW MD, Ot E61. 1 IRON DEFICIENCY 11/27/2019 VERONICA MATHEW MD, Ot E66. 9 OBESITY, UNSPECIFIED 11/27/2019 VERONICA MATHEW MD Ot F10. 21 ALCOHOL DEPENDENCE, IN REMISSION 11/27/2019 VERONICA MATHEW MD Ot I10 ESSENTIAL (PRIMARY) HYPERTENSION 11/27/2019 VERONICA MATHEW MD Ot K29. 50 UNSPECIFIED CHRONIC GASTRITIS WITHOUT BL 11/27/2019 VERONICA MATHEW MD Ot K44. 9 DIAPHRAGMATIC HERNIA WITHOUT OBSTRUCTION 11/27/2019 VERONICA MATHEW MD Ot K76. 0 FATTY (CHANGE OF) LIVER, NOT ELSEWHERE C 11/27/2019 VERONICA MATHEW MD Ot Z68. 30 BODY MASS INDEX (BMI) 30.0-30.9, ADULT 11/27/2019 VERONICA MATHEW MD, Ot Z79. 82 MANAGER TRADING (CURRENT) USE OF ASPIRIN 11/27/2019 VERONICA MATHEW MD Ot Z79. 84 MANAGER TRADING (CURRENT) USE OF ORAL HYPOGLYC 11/27/2019 VERONICA MATHEW MD, Ot Z79.899 OTHER SNF (CURRENT) DRUG THERAPY 11/27/2019 VERONICA MATHEW MD, Ot Z85. 46 PERSONAL HISTORY OF MALIGNANT NEOPLASM O 11/29/2019 INESSA NEWTON APRN Ot F32 .9 MAJOR DEPRESSIVE DISORDER, SINGLE EPISOD 11/29/2019 INESSA NEWTON APRN Ot F41 .9 ANXIETY DISORDER, UNSPECIFIED 11/29/2019 NEWTON, PETER J WIRE DRAWER Ot I10 ESSENTIAL (PRIMARY) HYPERTENSION 11/29/2019 INESSA NEWTON APRN Ot N20 .1 CALCULUS OF URETER 11/29/2019 INESSA NEWTON APRN Ot R10 .9 UNSPECIFIED ABDOMINAL PAIN 11/29/2019 INESSA NEWTON APRN Ot Z79.82 MANAGER TRADING (CURRENT) USE OF ASPIRIN 11/29/2019 INESSA NEWTON APRN Ot Z79.84 MANAGER TRADING (CURRENT) USE OF ORAL HYPOGLYC 11/29/2019 INESSA NEWTON APRN Ot Z79.899 OTHER SNF (CURRENT) DRUG THERAPY 11/29/2019 INESSA NEWTON APRN Ot Z85.46 PERSONAL HISTORY OF MALIGNANT NEOPLASM O 11/30/2019 INESSA NEWTON APRN Ot F32 .9 MAJOR DEPRESSIVE DISORDER, SINGLE EPISOD 11/30/2019 INESSA NEWTON APRN Ot F41 .9 ANXIETY DISORDER, UNSPECIFIED 11/30/2019 INESSA NEWTON APRN Ot I10 ESSENTIAL (PRIMARY) HYPERTENSION 11/30/2019 INESSA NEWTON APRN Ot N20 .1 CALCULUS OF URETER 11/30/2019 INESSA NEWTON APRN Ot R10 .9 UNSPECIFIED ABDOMINAL PAIN 11/30/2019 INESSA NEWTON APRN Ot Z79.82 SNF (CURRENT) USE OF ASPIRIN 11/30/2019 INESSA NEWTON APRN Ot Z79.84 SNF (CURRENT) USE OF ORAL HYPOGLYC 11/30/2019 INESSA NEWTON APRN Ot Z79.899 OTHER SNF (CURRENT) DRUG THERAPY 11/30/2019 INESSA NEWTON APRN Ot Z85.46 PERSONAL HISTORY OF MALIGNANT NEOPLASM O 12/03/2019 LAINE TRAVIS, JENNIFER Mcdonald Ot C61 MALIGNANT NEOPLASM OF PROSTATE 12/03/2019 DEGRAFFENREID-ELAM, CINDY L Ot N20.0 CALCULUS OF KIDNEY 12/03/2019 DEGRAFFENREID-ELAM, CINDY L Ot R14.0 ABDOMINAL DISTENSION (GASEOUS) 12/03/2019 DEGRAFFENREID-ELAM, CINDY L Ot R30.0 DYSURIA 12/03/2019 DEGRAFFENREID-ELAM, CINDY L Ot R31.9 HEMATURIA, UNSPECIFIED 12/03/2019 DEGRAFFENREID-ELAM, CINDY L Ot R39.89 OTHER SYMPTOMS AND SIGNS INVOLVING THE G 12/03/2019 DEGRAFFENREID-ELAM, CINDY Doss Ot Z87.898 PERSONAL HISTORY OF OTHER SPECIFIED COND 12/03/2019 DEGRAFFENREID-ELAM, CINDY Doss Ot K76.0 FATTY (CHANGE OF) LIVER, NOT ELSEWHERE C 12/03/2019 DEGRAFFENREID-ELAM, CINDY Doss Ot R19.09 OTHER INTRA-ABDOMINAL AND PELVIC SWELLIN 12/03/2019 DEGRAFFENREID-ELAM, CINDY Doss Ot Z90.49 ACQUIRED ABSENCE OF OTHER SPECIFIED PART 12/03/2019 SHAWN THOMAS APRN Ot E11.21 TYPE 2 DIABETES MELLITUS WITH DIABETIC N 12/03/2019 SHAWN THOMAS APRN Ot I10 ESSENTIAL (PRIMARY) HYPERTENSION 12/03/2019 BRITTNEY TRINIDAD DO Ot K44. 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 12/03/2019 Ot E61.1 IRON DEFICIENCY 12/03/2019 Ot E66.9 OBES ITY, UNSPECIFIED 12/03/2019 Ot F10.21 ALC OHOL DEPENDENCE, IN REMISSION 12/03/2019 Ot I10 ESSENT IAL (PRIMARY) HYPERTENSION 12/03/2019 Ot K29.50 UNS PECIFIED CHRONIC GASTRITIS WITHOUT BL 12/03/2019 Ot K44.9 DIAP HRAGMATIC HERNIA WITHOUT OBSTRUCTION 12/03/2019 Ot K76.0 FATT Y (CHANGE OF) LIVER, NOT ELSEWHERE C 12/03/2019 Ot Z68.30 BOD Y MASS INDEX (BMI) 30.0-30.9, ADULT 12/03/2019 Ot Z79.82 DENISE G TERM (CURRENT) USE OF ASPIRIN 12/03/2019 Ot Z79.84 DENISE G TERM (CURRENT) USE OF ORAL HYPOGLYC 12/03/2019 Ot Z79.899 OT HER SNF (CURRENT) DRUG THERAPY 12/03/2019 Ot Z85.46 PER CURT HISTORY OF MALIGNANT NEOPLASM O 12/04/2019 JENNIFER JANG MD Ot E11.9 TYPE 2 DIABETES MELLITUS WITHOUT COMPLIC 12/04/2019 JENNIFER JANG MD, Ot F31.9 BIPOLAR DISORDER, UNSPECIFIED 12/04/2019 JENNIFER JANG MD, Ot F41.9 ANXIETY DISORDER, UNSPECIFIED 12/04/2019 JENNIFER JANG MD, Ot K21.9 GASTRO-ESOPHAGEAL REFLUX DISEASE WITHOUT 12/04/2019 LAINE TRAVIS, JENNIFER Mcdonald Ot N20.1 CALCULUS OF URETER 12/04/2019 JENNIFER JANG MD, Ot Z90.4 9 ACQUIRED ABSENCE OF OTHER SPECIFIED PART 12/04/2019 JENNIFER JANG MD, Ot Z90.7 9 ACQUIRED ABSENCE OF OTHER GENITAL ORGAN( 12/04/2019 JENNIFER JANG MD, Ot Z90.8 9 ACQUIRED ABSENCE OF OTHER ORGANS Procedures Code Description Performed By Per formed On [id number] RE SECTION OF PELVIS LYMPHATIC, PERC ENDO 03/24/2016 [id number] RE SECTION OF PROSTATE, PERCUTANEOUS ENDO 03/24/2016 [id number] RO BOTIC ASSISTED PROCEDURE OF TRUNK, PER 03/24/2016 Results Test Result Range Complete blood count (CBC) with automate d white blood cell (WBC) differential - 03/17/16 10:45 Blood leukocytes automated count (number/volume) 7.8 10*3/uL 4.3-11.0 Blood erythrocytes automated count (number/volume) 4.68 10*6/uL 4.35-5.85 Venous blood hemoglobin measurement (mass/volume) 14.2 g/dL 13.3-17.7 Blood hematocrit (volume fraction) 41 % 40-54 Automated erythrocyte mean corpuscular volume 89 [ foz_us] 80-99 Automated erythrocyte mean corpuscular h emoglobin (mass per erythrocyte) 30 pg 25-34 Automated erythrocyte mean corpuscular h emoglobin concentration measurement (mass/volume) 34 g/dL 32-36 Automated erythrocyte distribution width ratio 13. 8 % 10.0- 14.5 Automated blood platelet count (count/volume) 220 10*3/uL 130-400 Automated blood platelet mean volume measurement 11.0 [foz_us] 7.4-10.4 Automated blood neutrophils/100 leukocytes 67 % 42-75 Automated blood lymphocytes/100 leukocytes 22 % 12-44 Blood monocytes/100 leukocytes 8 % 0-12 Automated blood eosinophils/100 leukocytes 2 % 0-10 Automated blood basophils/100 leukocytes 0 % 0-10 Blood neutrophils automated count (number/volume) 5.2 10*3 1.8-7.8 Blood lymphocytes automated count (number/volume) 1.7 10*3 1.0-4.0 Blood monocytes automated count (number/volume) 0. 7 10*3 0.0-1.0 Automated eosinophil count 0.2 10*3/uL 0 .0-0.3 Automated blood basophil count (count/volume) 0.0 10*3/uL 0.0-0.1 Methicillin resistant Staphylococcus aur eus (MRSA) screening culture - 03/17/16 10:45 Methicillin resistant Staphylococcus aureus (MRSA) scr eening culture NEG NRG Capillary blood glucose measurement by g lucometer (mass/volume) - 03/24/16 06:18 Capillary blood glucose measurement by glucometer (mas s/volume) 106 mg/dL 70-110 Whole blood basic metabolic panel - 03/08 02/20 06:30 Serum or plasma sodium measurement (moles/volume) 141 mmol/L 135-145 Serum or plasma potassium measurement (moles/volume) 4.3 mmol/L 3.6-5.0 Serum or plasma chloride measurement (moles/volume) 107 mmol/L 98-107 Carbon dioxide 20 mmol/L 21-32 Serum or plasma anion gap determination (moles/volume) 14 mmol/L 5-14 Serum or plasma urea nitrogen measurement (mass/volume ) 19 mg/dL 7-18 Serum or plasma creatinine measurement (mass/volume) 0.85 mg/dL 0.60-1.30 Serum or plasma urea nitrogen/creatinine mass ratio 22 NRG Serum or plasma creatinine measurement w ith calculation of estimated glomerular filtration rate > NRG Serum or plasma glucose measurement (mass/volume) 113 mg/dL 70-105 Serum or plasma calcium measurement (mass/volume) 9.2 mg/dL 8.5-10.1 Blood type T Indirect antibody screen pa dania - 03/24/16 06:30 ABO+Rh group OP NRG Transfusion band number [id number] NRG Blood group antibody screen NEGATIVE NR G [id number] - 06/04/16 12:25 Serum or plasma urea nitrogen measurement (mass/volume ) 15 mg/dL 7-18 Serum or plasma creatinine measurement (mass/volume) 0.80 mg/dL 0.60-1.30 Serum or plasma urea nitrogen/creatinine mass ratio 19 NRG Serum or plasma creatinine measurement w ith calculation of estimated glomerular filtration rate > NRG Complete urinalysis with reflex to cultu re - 12/18/17 17:20 Urine color determination YELLOW NRG Urine clarity determination CLEAR NR G Urine pH measurement by test strip 6 5-9 Specific gravity of urine by test strip 1.010 1.016-1.022 Urine protein assay by test strip, semi-quantitative NEGATIVE NEGATIVE Urine glucose detection by automated test strip NE GATIVE NEGATIVE Erythrocytes detection in urine sediment by light micr oscopy 1+ NEGATIVE Urine ketones detection by automated test strip NE GATIVE NEGATIVE Urine nitrite detection by test strip NEGATIVE NEGATIVE Urine total bilirubin detection by test strip NEGA TIVE NEGATIVE Urine urobilinogen measurement by automated test strip (mass/volume) NORMAL NORMAL Urine leukocyte esterase detection by dipstick NEG ATIVE NEGATIVE Automated urine sediment erythrocyte cou nt by microscopy (number/high power field) NONE NRG Automated urine sediment leukocyte count by microscopy (number/high power field) NONE NRG Bacteria detection in urine sediment by light microsco py NEGATIVE NRG Crystals detection in urine sediment by light microsco py NONE NRG Casts detection in urine sediment by light microscopy NONE NRG Mucus detection in urine sediment by light microscopy NEGATIVE NRG Complete urinalysis with reflex to culture NO NRG Complete blood count (CBC) with automate d white blood cell (WBC) differential - 12/18/17 17:29 Blood leukocytes automated count (number/volume) 7.8 10*3/uL 4.3-11.0 Blood erythrocytes automated count (number/volume) 4.49 10*6/uL 4.35-5.85 Venous blood hemoglobin measurement (mass/volume) 9.9 g/dL 13.3-17.7 Blood hematocrit (volume fraction) 32 % 40-54 Automated erythrocyte mean corpuscular volume 71 [ foz_us] 80-99 Automated erythrocyte mean corpuscular h emoglobin (mass per erythrocyte) 22 pg 25-34 Automated erythrocyte mean corpuscular h emoglobin concentration measurement (mass/volume) 31 g/dL 32-36 Automated erythrocyte distribution width ratio 17. 8 % 10.0- 14.5 Automated blood platelet count (count/volume) 260 10*3/uL 130-400 Automated blood platelet mean volume measurement 10.7 [foz_us] 7.4-10.4 Automated blood neutrophils/100 leukocytes 73 % 42-75 Automated blood lymphocytes/100 leukocytes 15 % 12-44 Blood monocytes/100 leukocytes 9 % 0-12 Automated blood eosinophils/100 leukocytes 2 % 0-10 Automated blood basophils/100 leukocytes 1 % 0-10 Blood neutrophils automated count (number/volume) 5.7 10*3 1.8-7.8 Blood lymphocytes automated count (number/volume) 1.2 10*3 1.0-4.0 Blood monocytes automated count (number/volume) 0. 7 10*3 0.0-1.0 Automated eosinophil count 0.2 10*3/uL 0 .0-0.3 Automated blood basophil count (count/volume) 0.0 10*3/uL 0.0-0.1 Comprehensive metabolic panel - 12/18/17 17:29 Serum or plasma sodium measurement (moles/volume) 136 mmol/L 135-145 Serum or plasma potassium measurement (moles/volume) 4.3 mmol/L 3.6-5.0 Serum or plasma chloride measurement (moles/volume) 106 mmol/L 98-107 Carbon dioxide 20 mmol/L 21-32 Serum or plasma anion gap determination (moles/volume) 10 mmol/L 5-14 Serum or plasma urea nitrogen measurement (mass/volume ) 15 mg/dL 7-18 Serum or plasma creatinine measurement (mass/volume) 0.92 mg/dL 0.60-1.30 Serum or plasma urea nitrogen/creatinine mass ratio 16 NRG Serum or plasma creatinine measurement w ith calculation of estimated glomerular filtration rate > NRG Serum or plasma glucose measurement (mass/volume) 168 mg/dL 70-105 Serum or plasma calcium measurement (mass/volume) 9.6 mg/dL 8.5-10.1 Serum or plasma total bilirubin measurement (mass/volu me) 0.4 mg/dL 0.1-1.0 Serum or plasma alkaline phosphatase viri surement (enzymatic activity/volume) 112 U/L 40-136 Serum or plasma aspartate aminotransfera se measurement (enzymatic activity/volume) 36 U/L 5-34 Serum or plasma alanine aminotransferase measurement (enzymatic activity/volume) 40 U/L 0-55 Serum or plasma protein measurement (mass/volume) 6.9 g/dL 6.4-8.2 Serum or plasma albumin measurement (mass/volume) 3.9 g/dL 3.2-4.5 Capillary blood glucose measurement by g lucometer (mass/volume) - 07/25/18 14:54 Capillary blood glucose measurement by glucometer (mas s/volume) 121 mg/dL 70-110 Urine drug screening test - 07/25/18 15: 25 Urine phencyclidine detection by screening method NEGATIVE NEGATIVE Urine benzodiazepines detection by screening method POSITIVE NEGATIVE Urine cocaine detection NEGATIVE NEGATI VE Urine amphetamines detection by screening method N EGATIVE NEGATIVE Urine methamphetamine detection by screening method NEGATIVE NEGATIVE Urine cannabinoids detection by screening method N EGATIVE NEGATIVE Urine opiates detection by screening method NEGATI VE NEGATIVE Urine barbiturates detection NEGATIVE N EGATIVE Screening urine tricyclic antidepressants detection NEGATIVE NEGATIVE Urine methadone detection by screening method NEGA TIVE NEGATIVE Urine oxycodone detection NEGATIVE NEGA TIVE Urine propoxyphene detection NEGATIVE N EGATIVE Complete blood count (CBC) with automate d white blood cell (WBC) differential - 02/13/19 10:06 Blood leukocytes automated count (number/volume) 5.1 10*3/uL 4.3-11.0 Blood erythrocytes automated count (number/volume) 4.60 10*6/uL 4.35-5.85 Venous blood hemoglobin measurement (mass/volume) 9.8 g/dL 13.3-17.7 Blood hematocrit (volume fraction) 33 % 40-54 Automated erythrocyte mean corpuscular volume 72 [ foz_us] 80-99 Automated erythrocyte mean corpuscular h emoglobin (mass per erythrocyte) 21 pg 25-34 Automated erythrocyte mean corpuscular h emoglobin concentration measurement (mass/volume) 30 g/dL 32-36 Automated erythrocyte distribution width ratio 17. 5 % 10.0- 14.5 Automated blood platelet count (count/volume) 207 10*3/uL 130-400 Automated blood platelet mean volume measurement 10.5 [foz_us] 7.4-10.4 Automated blood neutrophils/100 leukocytes 80 % 42-75 Automated blood lymphocytes/100 leukocytes 13 % 12-44 Blood monocytes/100 leukocytes 7 % 0-12 Automated blood eosinophils/100 leukocytes 0 % 0-10 Automated blood basophils/100 leukocytes 0 % 0-10 Blood neutrophils automated count (number/volume) 4.1 10*3 1.8-7.8 Blood lymphocytes automated count (number/volume) 0.7 10*3 1.0-4.0 Blood monocytes automated count (number/volume) 0. 3 10*3 0.0-1.0 Automated eosinophil count 0.0 10*3/uL 0 .0-0.3 Automated blood basophil count (count/volume) 0.0 10*3/uL 0.0-0.1 Comprehensive metabolic panel - 02/13/19 10:06 Serum or plasma sodium measurement (moles/volume) 135 mmol/L 135-145 Serum or plasma potassium measurement (moles/volume) 4.2 mmol/L 3.6-5.0 Serum or plasma chloride measurement (moles/volume) 101 mmol/L 98-107 Carbon dioxide 23 mmol/L 21-32 Serum or plasma anion gap determination (moles/volume) 11 mmol/L 5-14 Serum or plasma urea nitrogen measurement (mass/volume ) 16 mg/dL 7-18 Serum or plasma creatinine measurement (mass/volume) 1.10 mg/dL 0.60-1.30 Serum or plasma urea nitrogen/creatinine mass ratio 15 NRG Serum or plasma creatinine measurement w ith calculation of estimated glomerular filtration rate > NRG Serum or plasma glucose measurement (mass/volume) 290 mg/dL 70-105 Serum or plasma calcium measurement (mass/volume) 8.9 mg/dL 8.5-10.1 Serum or plasma total bilirubin measurement (mass/volu me) 0.4 mg/dL 0.1-1.0 Serum or plasma alkaline phosphatase viri surement (enzymatic activity/volume) 100 U/L 40-136 Serum or plasma aspartate aminotransfera se measurement (enzymatic activity/volume) 39 U/L 5-34 Serum or plasma alanine aminotransferase measurement (enzymatic activity/volume) 39 U/L 0-55 Serum or plasma protein measurement (mass/volume) 6.7 g/dL 6.4-8.2 Serum or plasma albumin measurement (mass/volume) 4.0 g/dL 3.2-4.5 CALCIUM CORRECTED 8.9 mg/dL 8.5-10.1 Serum iron and total iron binding capaci ty panel - 02/13/19 10:06 TIBC 419 % 280-380 Serum or plasma iron measurement (mass/volume) 35 % 40-180 Total iron binding capacity and transferrin saturation measurement 8 % 15-50 UIBC (unsaturated iron binding capacity) 384 % 55-450 Serum or plasma ferritin measurement (mass/volume) 7.8 % 32.0-356.0 Complete blood count (CBC) with automate d white blood cell (WBC) differential - 11/29/19 17:55 Blood leukocytes automated count (number/volume) 12.7 10*3/uL 4.3-11.0 Blood erythrocytes automated count (number/volume) 4.45 10*6/uL 4.35-5.85 Venous blood hemoglobin measurement (mass/volume) 11.8 g/dL 13.3-17.7 Blood hematocrit (volume fraction) 37 % 40-54 Automated erythrocyte mean corpuscular volume 83 [ foz_us] 80-99 Automated erythrocyte mean corpuscular h emoglobin (mass per erythrocyte) 27 pg 25-34 Automated erythrocyte mean corpuscular h emoglobin concentration measurement (mass/volume) 32 g/dL 32-36 Automated erythrocyte distribution width ratio 14. 4 % 10.0- 14.5 Automated blood platelet count (count/volume) 245 10*3/uL 130-400 Automated blood platelet mean volume measurement 11.2 [foz_us] 7.4-10.4 Automated blood neutrophils/100 leukocytes 82 % 42-75 Automated blood lymphocytes/100 leukocytes 11 % 12-44 Blood monocytes/100 leukocytes 8 % 0-12 Automated blood eosinophils/100 leukocytes 0 % 0-10 Automated blood basophils/100 leukocytes 0 % 0-10 Blood neutrophils automated count (number/volume) 10.4 10*3 1.8-7.8 Blood lymphocytes automated count (number/volume) 1.4 10*3 1.0-4.0 Blood monocytes automated count (number/volume) 1. 0 10*3 0.0-1.0 Automated eosinophil count 0.0 10*3/uL 0 .0-0.3 Automated blood basophil count (count/volume) 0.0 10*3/uL 0.0-0.1 Comprehensive metabolic panel - 11/29/19 17:55 Serum or plasma sodium measurement (moles/volume) 139 mmol/L 135-145 Serum or plasma potassium measurement (moles/volume) 4.6 mmol/L 3.6-5.0 Serum or plasma chloride measurement (moles/volume) 108 mmol/L 98-107 Carbon dioxide 18 mmol/L 21-32 Serum or plasma anion gap determination (moles/volume) 13 mmol/L 5-14 Serum or plasma urea nitrogen measurement (mass/volume ) 26 mg/dL 7-18 Serum or plasma creatinine measurement (mass/volume) 1.17 mg/dL 0.60-1.30 Serum or plasma urea nitrogen/creatinine mass ratio 22 NRG Serum or plasma creatinine measurement w ith calculation of estimated glomerular filtration rate > NRG Serum or plasma glucose measurement (mass/volume) 189 mg/dL 70-105 Serum or plasma calcium measurement (mass/volume) 9.5 mg/dL 8.5-10.1 Serum or plasma total bilirubin measurement (mass/volu me) 0.6 mg/dL 0.1-1.0 Serum or plasma alkaline phosphatase viri surement (enzymatic activity/volume) 85 U/L 40-136 Serum or plasma aspartate aminotransfera se measurement (enzymatic activity/volume) 30 U/L 5-34 Serum or plasma alanine aminotransferase measurement (enzymatic activity/volume) 32 U/L 0-55 Serum or plasma protein measurement (mass/volume) 7.5 g/dL 6.4-8.2 Serum or plasma albumin measurement (mass/volume) 4.1 g/dL 3.2-4.5 CALCIUM CORRECTED 9.4 mg/dL 8.5-10.1 Complete urinalysis with reflex to cultu re - 11/29/19 18:50 Urine color determination YELLOW NRG Urine clarity determination CLEAR NR G Urine pH measurement by test strip 5.5 5-9 Specific gravity of urine by test strip >= 1.016-1.022 Urine protein assay by test strip, semi-quantitative TRACE NEGATIVE Urine glucose detection by automated test strip NE GATIVE NEGATIVE Erythrocytes detection in urine sediment by light micr oscopy NEGATIVE NEGATIVE Urine ketones detection by automated test strip TR LEFTY NEGATIVE Urine nitrite detection by test strip NEGATIVE NEGATIVE Urine total bilirubin detection by test strip 1+ NEGATIVE Urine urobilinogen measurement by automated test strip (mass/volume) 1.0 mg/dL < = 1.0 Urine leukocyte esterase detection by dipstick NEG ATIVE NEGATIVE Automated urine sediment erythrocyte cou nt by microscopy (number/high power field) NONE NRG Automated urine sediment leukocyte count by microscopy (number/high power field) NONE NRG Bacteria detection in urine sediment by light microsco py TRACE NRG Crystals detection in urine sediment by light microsco py PRESENT NRG Casts detection in urine sediment by light microscopy NONE NRG Mucus detection in urine sediment by light microscopy MODERATE NRG Complete urinalysis with reflex to culture NO NRG Amorphous sediment detection in urine sediment by ligh t microscopy FEW HUGO URATES NRG Calcium oxalate crystals detection in ur ine sediment by light microscopy FEW NRG Capillary blood glucose measurement by g lucometer (mass/volume) - 11/30/19 11:29 Capillary blood glucose measurement by glucometer (mas s/volume) 178 mg/dL 70-110 Methicillin resistant Staphylococcus aur eus (MRSA) screening culture - 11/30/19 11:40 Methicillin resistant Staphylococcus aureus (MRSA) scr eening culture NEG NRG Capillary blood glucose measurement by g lucometer (mass/volume) - 11/30/19 14:37 Capillary blood glucose measurement by glucometer (mas s/volume) 92 mg/dL 70-110 Coronavirus SARS-CoV-2 SO 2018 - 0 13:30 Coronavirus Ab [Units/volume] in Serum Negative Negative Encounters ACCT No. Visit Date/Time Discharge Status Pt. Type Provider Facility Loc./Unit Complaint [id number] 12/10/2019 06:45:00 14:21:00 DIS Outpatient JENNIFER JANG MD [facility] PREOP RIGHT ESWL [id number] 11/30/2019 10:34:00 16:15:00 DIS Outpatient JENNIFER JANG MD [facility] SDC RIGHT URETERAL STONE [id number] 11/29/2019 17:28:00 19:23:00 DIS Emergency INESSA NEWTON APRN [facility] ER R SIDE PAIN [id number] 09/04/2019 09:54:00 00:01:00 DIS Outpatient VERONICA MATHEW MD [facility] ONC [id number] 08/27/2019 14:01:00 23:59:59 CLS Outpatient JENNIFER JANG MD [facility] RAD HEMATURIA [id number] 08/14/2019 14:11:00 23:59:59 CLS Outpatient SHAWN THOMAS APRN [facility] RAD CERVICAL SPINE STENOSIS [id number] 03/27/2019 09:43:00 019 00:01:00 DIS Outpatient VERONICA MATHEW MD [facility] ONC [id number] 12/18/2018 10:53:00 23:59:59 CLS Outpatient BRITTNEY TRINIDAD DO [facility] RAD DYSPHAGIA [id number] 08/22/2018 09:04:00 019 00:01:00 DIS Outpatient VERONICA MATHEW MD [facility] ONC [id number] 08/16/2018 08:40:00 23:59:59 CLS Outpatient SHAWN THOMAS APRN [facility] LAB [id number] 07/11/2018 09:04:00 019 00:01:00 DIS Outpatient VERONICA MATHEW MD [facility] ONC [id number] 07/25/2018 14:15:00 018 18:38:00 DIS Outpatient BRITTNEY TRINIDAD DO [facility] ENDO ANEMIA [id number] 07/24/2018 15:45:00 018 16:15:00 DIS Outpatient BRITTNEY TRINIDAD DO [facility] PREOP COLO/EGD [id number] 05/01/2018 11:39:00 018 12:52:00 DIS Outpatient VERONICA MATHEW MD [facility] ONC [id number] 01/09/2018 08:16:00 23:59:59 CLS Outpatient CINDY RUSH [facility] RAD LUQ PAIN [id number] 12/18/2017 16:57:00 18:24:00 DIS Emergency INESSA NEWTON WIRE DRAWER [facility] ER MONTES,RT EYE PAIN [id number] 06/04/2016 12:09:00 23:59:59 CLS Outpatient CINDY RUSH [facility] RAD HISTORY OF FEVER,R30.0,R31.9,R140.0 [id number] 01/07/2016 13:24:00 00:01:00 DIS Outpatient JORDAN GODINEZ MD [facility] ONC [id number] 03/24/2016 05:53:00 016 12:00:00 DIS Inpatient EDUAR MCMULLEN MD [facility] 4TH PROSTATE CANCER [id number] 03/17/2016 10:27:00 016 12:22:00 DIS Outpatient EDUAR MCMULLEN MD [facility] PREOP PROSTATE CANCER [id number] 12/19/2015 09:28:00 23:59:59 CLS Outpatient JENNIFER JANG MD [facility] CARD PROSTATE CANCER [id number] 09/05/2015 11:52:00 23:59:59 CLS Outpatient MIGUEL GIORDANO [employer] [facility] RAD DIZZINESS, LEFT LEG PAIN [id number] 08/20/2015 16:08:00 18:38:00 DIS Emergency INESSA NEWTON [employer] [facility] ER L LEG PAIN/STREAKS [id number] 01/21/2015 13:16:00 17:05:00 DIS Outpatient BRITTNEY TRINIDAD DO [facility] SDC OCCULT POSITIVE; ANEMIA [id number] 01/15/2015 06:19:00 06/10/2 015 23:59:59 CLS Outpatient BRITTNEY TRINIDAD DO [facility] PREOP OCCULT POSITIVE; ANEMIA [id number] 03/07/2014 12:13:00 014 23:59:59 CLS Outpatient MIGUEL GIORDANO [employer] [facility] RAD SINUS PAIN,TINI TIS [id number] 09/11/2013 07:29:00 23:59:59 CLS Outpatient MIGUEL GIORDANO [employer] [facility] RAD [id number] 12/11/2019 10:00:00 P EN Preadmit LAINE TRAVIS, JENNIFER Mcdonald [facility] RIGHT URETERAL STONE [id number] 12/10/2019 11:53:[address] Outpatient JENNIFER JANG MD [facility] RAD URETEREL STONE [id number] 11/26/2019 00:00:00 Document Registration [id number] 09/30/2014 15:30:00 Document Registration
[2019-12-11] MEDS ORDERED: cefTRIAXone FOR IV USE 1,000 MG in WATER (STERILE) FOR INJECTION 10 ML IV ONE (07:30)
[2019-12-11] MEDS ORDERED: LIDOCAINE PF 2% 5 ML (XYLOCAINE) VIAL ONE (07:31)
[2019-12-11] MEDS ORDERED: ONDANSETRON 4 MG/2 ML (SDV) Z0FRAN ONE (07:31)
[2019-12-11] MEDS ORDERED: SEVOFLURANE (ULTANE) 15 ML INHAL SOLN ONE (07:31)
[2019-12-11] MEDS ORDERED: proPOfol 200 MG/20 ML (DIPRIVAN) VIAL IV ONE (07:31)
[2019-12-11] MEDS ORDERED: MIDAZOLAM 2 MG/2 ML (VERSED) VIAL ONE (07:32)
[2019-12-11] MEDS ORDERED: fentaNYL INJECTION 100 MCG/2 ML AMP ONE (07:32)
[2019-12-11] MEDS ORDERED: CATHETER FLUSH 10 ML SYR IV PRN (07:45)
--- NOTE | 2019-12-11 07:45 | Diagnostic Imaging Report ---
INDICATION: Status post ESWL. COMPARISON: 12/10/2019 FINDINGS: Single supine radiographic view of the abdomen was obtained and again demonstrates 8 mm calculus projecting over the right renal fossa adjacent to the indwelling ureteral stent. There has been no significant interval change when compared to prior exam. No new unexpected radiopaque foreign bodies seen. Large amount of air and stool is noted scattered throughout the colon. Small bowel loops are nondistended. IMPRESSION: 1. Stable calculus projecting over the right renal fossa as above. 2. Indwelling double-J ureteral stent. 3. Moderate colonic air and stool. Please correlate for constipation. Dictated by: Dictated on workstation # [id number]
[2019-12-11] MEDS: LACTATED RINGERS 1,000 ML IV PRN ×2 (07:51→08:33)
--- NOTE | 2019-12-11 08:00 | Progress Note-Pre Operative ---
Pre-Operative Progress Note H&P Reviewed The H&P was reviewed, patient examined and no changes noted. Date Seen by Provider: December 11, 2019 Time Seen by Provider: 08:00 Date H&P Reviewed: December 11, 2019 Time H&P Reviewed: 08:00 Pre-Operative Diagnosis: RT RENAL STONE JENNIFER JANG MD December 11, 2019 08:00
--- NOTE | 2019-12-11 08:03 | Progress Note-Post Operative ---
Post-Operative Progess Note Surgeon (s)/Linseed Oil Press Tender (s) Surgeon JENNIFER JANG MD Linseed Oil Press Tender: NONE Pre-Operative Diagnosis RT RENAL STONE Post-Operative Diagnosis SAME Procedure & Operative Findings Date of Procedure 12/11/19 Procedure Performed/Findings RT ESWL Anesthesia Type GENERAL Estimated Blood Loss Estimated blood loss (mL): NONE Specimens/Packing Specimens Removed NONE Packing: NONE JENNIFER JANG MD December 11, 2019 08:03
--- NOTE | 2019-12-11 08:06 | Discharge Inst-Urology ---
Discharge Inst-Urology Reconcile Patient Problems Problems Reviewed?: Yes Final Diagnosis RT RENAL STONE Patient Instructions/Follow Up Plan/Assessment/Instructions Please make appointment to been seen in office next week to DC stent. KUB on way home KUB prior to office Post ESWL instructions Increase oral fluids for 48 hours and then as needed. Diet and Activity as tolerated. If questions or concerns contact your physician Or seek help at emergency department. JENNIFER JANG MD December 11, 2019 08:06
[2019-12-11] MEDS ORDERED: GLYCOPYRROLATE 0.2 MG/ML (ROBINUL) 2 ML VIAL ONE (08:17)
[2019-12-11] MEDS ORDERED: PHENYLEPHRINE 100 MCG/ML 10 ML (ANESTHESIA) SYR ONE (08:21)
[2019-12-11] MEDS ORDERED: KETOROLAC 30 MG/ML VIAL ONE (08:36)
[2019-12-11] MEDS ORDERED: FUROSEMIDE 40 MG/4 ML INJ (LASIX) ONE (08:36)
[2019-12-11] MEDS ORDERED: morphine INJ 10 MG/ML 1ML (SYR OR VIAL) IVP ONE (09:00)
[2019-12-11] MEDS ORDERED: ONDANSETRON 4 MG/2 ML (SDV) Z0FRAN IVP PRN (09:00)
[2019-12-11] MEDS ORDERED: TMSL.4C PO (09:37)
[2019-12-11] MEDS ORDERED: NITR-65 PO (09:37)
--- NOTE | 2019-12-11 10:00 | NUR ---
THIS RN PHONED DR. JANG TO INFORM PATIENT IS COMPLAINING OF HEADACHE 01/15. DR. JANG GAVE TELEPHONE ORDER FOR 650MG PO TYLENOL ONCE
[2019-12-11] MEDS ORDERED: ACETAMINOPHEN 325 MG TABLET ONE (10:03)
[2019-12-11] MEDS ORDERED: ACETAMINOPHEN 325 MG TABLET PO ONE (10:15)
--- NOTE | 2019-12-11 11:15 | Diagnostic Imaging Report ---
INDICATION: Post right-sided extracorporeal shock wave lithotripsy. TECHNIQUE: Single supine view of the abdomen 11:07 AM CORRELATION STUDY: 12/11/2019 FINDINGS: Right ureteral stent remains unchanged in position. There has been development of fragmentation of the previously noted solitary calcification adjacent to the proximal aspect stent over the right mid abdomen. No definitive calcification along the course of the stent. Moderate amount of overlying bowel gas and stool is present. IMPRESSION: 1. Fragmentation of the previously solitary calcification adjacent to the proximal right ureteral stent. Dictated by: Dictated on workstation # [id number]
--- NOTE | 2019-12-11 12:59 | OPERATIVE REPORT ---
DATE OF SERVICE: 12/11/2019 PREOPERATIVE DIAGNOSIS: Right renal stone. POSTOPERATIVE DIAGNOSIS: Right renal stone. OPERATION PERFORMED: Right ESWL. SURGEON: Elton Jang MD ANESTHESIA: General. COMPLICATIONS: None. DESCRIPTION OF PROCEDURE: Under satisfactory general anesthesia, the patient in supine position on the ESWL table, the right renal stone was localized. Shocks were delivered at kV of 6. Total of 3000 shocks completely fragmented the stone. The patient received 40 mg of Lasix and 30 mg of Toradol IV at the end of the procedure. He tolerated the procedure and anesthesia well, and was sent to recovery room in stable condition. Job ID: [id number] DocumentID: [id number] Dictated Date: 12/11/2019 08:51:21 Tools Administrator Date: 12/11/2019 12:59:01 Dictated By: ELTON JANG MD
--- NOTE | 2019-12-11 14:40 | Anesthesia-General Post-Op ---
General Patient Condition Mental Status/LOC: Same as Preop Cardiovascular: Satisfactory Nausea/Vomiting: Absent Respiratory: Satisfactory Pain: Controlled Complications: Absent Post Op Complications Complications None Follow Up Care/Instructions Patient Instructions None needed. Anesthesia/Patient Condition Patient Condition Patient was seen this morning after the procedure and he was doing well, no complaints, stable vital signs, no apparent adverse anesthesia problems. JAILENE TABARES DO December 11, 2019 14:40
== END 2019-12-11 11:10 | disposition home or self-care (01) ==
LOC: SDC 07:16
PROVIDERS: ATTEND Urology
DX: N20.0 Calculus of kidney (principal); I10 Essential (primary) hypertension; K21.9 Gastro-esophageal reflux disease without esophagitis; E11.9 Type 2 diabetes mellitus without complications; F41.9 Anxiety disorder, unspecified; F32.9 Major depressive disorder, single episode, unspecified; Z79.84 Long term (current) use of oral hypoglycemic drugs; Z79.899 Other long term (current) drug therapy
CPT/HCPCS: 74018; 82962; 87081

== ENCOUNTER → 2019-12-18 | Outpatient (CLI) | payer MEDICARE, OTHER ==
[~2019-12-18] MED LIST changes: +NITR-65 PO
--- NOTE | 2019-12-18 13:52 | Diagnostic Imaging Report ---
INDICATION: Right renal stone. COMPARISON: 12/11/2019. FINDINGS: The right-sided double-J nephroureteral stent remains in place. Renal calculi projected in the mid lower pole of the right kidney are again noted. There is a questionable small calcific density along a stent at the junction of the mid and distal aspect measuring 3 mm in size. No other calculi along the course of the stent are identified. The bowel gas pattern is unremarkable. IMPRESSION: Right-sided urinary tract calculi and right nephroureteral stent. Dictated by: Dictated on workstation # [id number]
== END ==
LOC: RAD 13:12
PROVIDERS: ATTEND Urology
DX: N20.0 Calculus of kidney (principal)
CPT/HCPCS: 74018

== ENCOUNTER 2020-04-09 13:40 | Outpatient (RCR) | payer MEDICARE, OTHER ==
[2020-03-31 14:38] LABS: BASOPHILS % (AUTO) 1 % (0-10); EOSINOPHILS % (AUTO) 0 % (0-10); HEMATOCRIT 35 % (40-54); LYMPHOCYTES # (AUTO) 1.4 X 10^3 (1.0-4.0); LYMPHOCYTES % (AUTO) 23 % (12-44); MEAN CORPUSCULAR HEMOGLOBIN 24 PG (25-34); MEAN CORPUSCULAR HGB CONC 31 G/DL (32-36); MEAN CORPUSCULAR VOLUME 76 FL (80-99); MEAN PLATELET VOLUME 11.3 FL (7.4-10.4); MONOCYTES # (AUTO) 0.7 X 10^3 (0.0-1.0); MONOCYTES % (AUTO) 11 % (0-12); NEUTROPHILS # (AUTO) 4.1 X 10^3 (1.8-7.8); NEUTROPHILS % (AUTO) 66 % (42-75); PLATELET COUNT 226 10^3/uL (130-400); WHITE BLOOD COUNT 6.2 10^3/uL (4.3-11.0)
[2020-03-31 15:02] LABS: ALANINE AMINOTRANSFERASE 19 U/L (0-55); ALBUMIN 4.1 GM/DL (3.2-4.5); ALKALINE PHOSPHATASE 99 U/L (40-136); BILIRUBIN,TOTAL 0.5 MG/DL (0.1-1.0); BUN/CREATININE RATIO 21; CALCIUM 9.2 MG/DL (8.5-10.1); CARBON DIOXIDE 24 MMOL/L (21-32); CHLORIDE 106 MMOL/L (98-107); CREATININE SERUM 0.86 MG/DL (0.60-1.30); GFR ESTIMATED > 60; GLUCOSE 116 MG/DL (70-105); POTASSIUM 4.3 MMOL/L (3.6-5.0); SODIUM 138 MMOL/L (135-145); TOTAL PROTEIN 7.2 GM/DL (6.4-8.2)
[~2020-04-09 13:40] MED LIST changes: -PANT40TA3 PO; +PANT40TA52 PO
[2020-06-16] MEDS ORDERED: TRAM-42 PO (16:35)
[2020-06-16] MEDS ORDERED: DICL100G18 TP (16:35)
== END 2020-06-29 | disposition home or self-care (01) ==
LOC: ONC 13:40
PROVIDERS: ATTEND Internal Medicine Hematology & Oncology
DX: D50.0 Iron deficiency anemia secondary to blood loss (chronic) (principal); K44.9 Diaphragmatic hernia without obstruction or gangrene; K29.50 Unspecified chronic gastritis without bleeding; E11.21 Type 2 diabetes mellitus with diabetic nephropathy; I10 Essential (primary) hypertension; K76.0 Fatty (change of) liver, not elsewhere classified; F10.21 Alcohol dependence, in remission; E66.9 Obesity, unspecified; Z68.30 Body mass index [BMI] 30.0-30.9, adult; Z79.82 Long term (current) use of aspirin; Z79.84 Long term (current) use of oral hypoglycemic drugs; Z79.899 Other long term (current) drug therapy; Z85.46 Personal history of malignant neoplasm of prostate
CPT/HCPCS: 80053; 82728; 83540; 85025; 99213

== ENCOUNTER 2020-06-16 16:07 | Emergency (ER) | payer MEDICARE, OTHER ==
[~2020-06-16] VITALS: Ht 182 cm; Wt 96.0 kg
[2020-06-16 16:10] VITALS: BP 132/107
--- NOTE | 2020-06-16 16:25 | ED Lower Extremity ---
General Chief Complaint: Lower Extremity Stated Complaint: KNEE INJURY Source: patient History of Present Illness Date Seen by Provider: Jun 16, 2020 Time Seen by Provider: 16:14 Initial Comments PT ARRIVES VIA POV FROM HOME C/O LEFT KNEE PAIN SINCE YESTERDAY--BEGAN WHILE JOGGING, BUT NO SPECIFIC INJURY THIS IS RECURRENT PROBLEM, STATES IT ALWAYS ACHES, ESPECIALLY WITH WALKING--STATES HE WALKS 5 MILES EVERY DAY. , AND HAD PROBLEMS WITH ALOT OF PAIN LIKE THIS ABOUT A YEAR AGO HAS SEEN DR. AVENDAÑO AT [facility] 4 STATES IN THE PAST FOR IT--NO SURGERY DONE. HAS NOT ATTEMPTED TO CONTACT DR. AVENDAÑO'S OFFICE FOR THIS EPISODE HAS NOT TAKEN ANYTHING FOR PAIN AT ANY TIME PCP: [facility] [place] [facility] SURGERY: DR. AVENDAÑO. Allergies and Home Medications Allergies Coded Allergies: No Known Drug Allergies (Unverified , 12/11/19) Home Medications Atorvastatin Calcium 20 Mg Tablet, 20 MG PO DAILY, (Reported) Clonazepam 1 Mg Tablet, 1 MG PO DAILY PRN for ANXIETY, (Reported) Diclofenac Sodium 75 Mg Tablet., 75 MG PO BID, (Reported) Diclofenac Sodium 100 Gm Gel..gram., 100 GM TP TID Prescribed by: SAKINA FERGUSON on 06/16/20 1635 Fluoxetine HCl 40 Mg Capsule, 40 MG PO DAILY, (Reported) Glipizide 5 Mg Tab.er.24, 5 MG PO BID, (Reported) Irbesartan 75 Mg Tablet, 75 MG PO BID, (Reported) Ketorolac Tromethamine 10 Mg Tablet, 10 MG PO TID PRN for PAIN-SEVERE (8-10) Prescribed by: INESSA NEWTON on 11/29/19 183 Lamotrigine 100 Mg Tablet, 100 MG PO BID, (Reported) Metformin HCl 1,000 Mg Tablet, 1,000 MG PO BID, (Reported) Nitrofurantoin Monohyd/M-Cryst 100 Mg Capsule, 1 TAB PO BID WITH MEALS Prescribed by: CHAYA MORENO on 12/11/19 0937 Ondansetron 4 Mg Tab.rapdis, 4 MG PO Q4H PRN for NAUSEA/VOMITING Prescribed by: INESSA NEWTON on 11/29/19 183 Pantoprazole Sodium 40 Mg Tablet., 40 MG PO DAILY, (Reported) Tamsulosin HCl 0.4 Mg Cap, 0.4 MG PO DAILY Prescribed by: CHAYA MORENO on 12/11/19 0937 Tramadol HCl 50 Mg Tablet, 50 MG PO Q4H Prescribed by: SAKINA FERGUSON on 06/16/20 1635 Patient Home Medication List Home Medication List Reviewed: Yes Review of Systems Constitutional: no symptoms reported Musculoskeletal: see HPI Skin: no symptoms reported Psychiatric/Neurological: No Symptoms Reported Past Bzsoimb-Mgvzxv-Ndrngb Hx Past Med/Social Hx: Reviewed and Corrections made Patient Social History Alcohol Use: Past History (NO ETOH SINCE 201`0) Recreational Drug Use: Yes Drug of Choice: 12YRS AGO-COCAINE AND MARIJUANA Smoking Status: Former Smoker (SMOKED MARIJUANA) 2nd Hand Smoke Exposure: No Recent Foreign Travel: No Contact w/Someone Who Travel: No Recent Hopitalizations: No Immunizations Up To Date Tetanus Booster (TDap): Unknown PED Vaccines UTD: Yes Date of Pneumonia Vaccine: Jul 17, 2014 Date of Influenza Vaccine: May 08, 2019 Seasonal Allergies Seasonal Allergies: No Past Medical History Surgeries: Yes (ORAL SURGERY-PULLED 3 TEETH, PROSTATECTOMY 2015, ureteroscopy) Gallbladder, Prostatectomy, Tonsillectomy Respiratory: No Currently Using CPAP: No Currently Using BIPAP: No Cardiac: Yes High Cholesterol, Hypertension Neurological: No (HX OF 2 EPISODES OF BLACKING OUT-POSSIBLE SEIZURES 2012) Reproductive Disorders: No Sexually Transmitted Disease: No HIV/AIDS: No Genitourinary: Yes (PROSTATE CANCER 2016--S/P SURGERY) Prostate Problems, Kidney Stones Gastrointestinal: Yes Gastroesophageal Reflux Musculoskeletal: Yes (SPINAL STENOSIS--CERVICAL SPINE) Degenerate Disk Disease, Arthritis, Chronic Back Pain Endocrine: Yes Diabetes, Non-Insulin dep HEENT: Yes Cataract Loss of Vision: Bilateral Hearing Impairment: Denies Cancer: Yes Prostate Did You Recieve Any Treatments: Yes What Type of Treatment Did You: Surgical Intervention PROSTATECTOMY 2015 NO CHEMO OR RADIATION Psychosocial: Yes Anxiety, Depression Integumentary: No Blood Disorders: Yes (HX-ANEMIA) Adverse Reaction/Blood Tranf: No (N/A) Family Medical History Cardiovascular disease G8 SISTER Completed stroke 19 FATHER Diabetes mellitus 19 FATHER 19 MOTHER G8 SISTER Hypercholesterolemia G8 BROTHER Hypertension 19 FATHER 19 MOTHER G8 BROTHER Myocardial infarction 19 MOTHER Prostate cancer 19 FATHER Thyroid disease 19 MOTHER G8 SISTER No Pertinent Family Hx Physical Exam Vital Signs Vital Signs - First Documented 06/16/20 16:10 Temp 37.0 Pulse 79 Resp 16 B/P (MAP) 132/107 (115) Pulse Ox 98 O2 Delivery Room Air Capillary Refill : Height, Weight, BMI Height: 6'0.00" Weight: 220lbs. 2.0oz. 99.220170in; 29.68 BMI Method:Stated General Appearance: WD/WN, no apparent distress, other (WALKS IN WITHOUT DIFFICULTY) Hips: left hip normal inspection Legs: left leg normal inspection Knees: left knee bone tenderness, left knee pain, left knee soft tissue tenderness, left knee other (TENDERNESS TO MEDIAL ASPECT OF LEFT KNEE. POSSIBLE TRACE EDEMA NOTED TO SUPERIOR ASPECT OF KNEE. NO GROSS LIGAMENT LAXITY. ) Ankles: left ankle normal inspection Feet: left foot normal inspection Neurologic/Tendon: normal sensation, normal motor functions, normal tendon functions Neurologic/Psychiatric: no motor/sensory deficits, alert, normal mood/affect, oriented x 3 Skin: normal color, warm/dry; No ecchymosis Procedures/Interventions Splinting and Joint Reduction : Miguel Ángel wrap: Yes Immobilizers: 24 inch Knee Progress/Results/Core Measures Results/Orders My Orders Orders - SAKINA FERGUSON DO Knee, Left, 3 Views (06/16/20 16:19) Miguel Ángel Bandage (06/16/20 16:30) Knee Immobilizer (06/16/20 16:30) Vital Signs/I&O 06/16/20 16:10 Temp 37.0 Pulse 79 Resp 16 B/P (MAP) 132/107 (115) Pulse Ox 98 O2 Delivery Room Air Progress Progress Note : Progress Note PT STATES HE MADE AN APPOINTMENT WITH DR. AVENDAÑO'S OFFICE WHILE HE WAS HERE IN ER--IS FOR NEXT MONTH. AT DISMISSAL, PT ALSO STATES HE HAS DICLOFENAC AT HOME, BUT HAS NOT TAKEN ANY. INITIALLY STATED HE COULD NOT TAKE NSAIDS BECAuSE THEY UPSET HIS STOMACH, THEN AT DISMISSAL STATES THAT DICLOFENAC DOES NOT . Diagnostic Imaging Comments XRAYS LEFT KNEE--PER RADIOLOGIST REPORT AT 1636 FINDINGS: Three views of the left knee joint demonstrate no acute fracture or dislocation. No focal osseous lesions are seen. No significant joint effusion is seen. The surrounding soft tissue structures are unremarkable. There are no radiopaque foreign bodies. IMPRESSION: 1. No acute fractures or dislocations of the left knee joint. Reviewed: Reviewed by Me Departure Impression Primary Impression: Left knee pain Disposition: HOME, SELF-CARE Condition: Stable Departure-Patient Inst. Referrals: [facility] (PCP/Family) Primary Care Physician ANDREW AVENDAÑO MD Patient Instructions: How to Use an Elastic Bandage, Knee Immobilizer (DC), Knee Pain (DC) Add. Discharge Instructions: TAKE YOUR DICLOFENAC PRESCRIBED ICE TO AREA AT 20 MINUTE INTERVALS MIGUEL ÁNGEL WRAP AND KNEE IMMOBILIZER AT ALL TIMES NO JOGGING FOLLOW UP WITH DR. SINGH FOR FURTHER CARE--KEEP SCHEDULED APPOINTMENT All discharge instructions reviewed with patient and/or family. Voiced understanding. Scripts Tramadol HCl (Ultram) 50 Mg Tablet 50 MG PO Q4H for Pain, #20 TAB Prov: SAKINA FERGUSON DO 06/16/20 Diclofenac Sodium (Voltaren) 100 Gm Gel..gram. 100 GM TP TID, #1 TUBE Prov: SAKINA FERGUSON DO 06/16/20 SAKINA FERGUSON DO Jun 16, 2020 16:25
--- NOTE | 2020-06-16 16:32 | Diagnostic Imaging Report ---
INDICATION: Knee pain. COMPARISON: None. FINDINGS: Three views of the left knee joint demonstrate no acute fracture or dislocation. No focal osseous lesions are seen. No significant joint effusion is seen. The surrounding soft tissue structures are unremarkable. There are no radiopaque foreign bodies. IMPRESSION: 1. No acute fractures or dislocations of the left knee joint. Dictated by: Dictated on workstation # [id number]
[2020-06-16] MEDS ORDERED: TRAM-42 PO (16:35)
[2020-06-16] MEDS ORDERED: DICL100G18 TP (16:35)
== END 2020-06-16 16:47 | disposition home or self-care (01) ==
LOC: EDUNIT# 16:07 → ER 16:10
DX: M25.562 Pain in left knee (principal); I10 Essential (primary) hypertension; E78.00 Pure hypercholesterolemia, unspecified; K21.9 Gastro-esophageal reflux disease without esophagitis; E11.9 Type 2 diabetes mellitus without complications; Z87.438 Personal history of other diseases of male genital organs; Z87.891 Personal history of nicotine dependence; Z79.84 Long term (current) use of oral hypoglycemic drugs; Z82.49 Family history of ischemic heart disease and other diseases of the circulatory system; Z83.3 Family history of diabetes mellitus; Z80.42 Family history of malignant neoplasm of prostate
CPT/HCPCS: 73562; 99282; L1830

== ENCOUNTER 2020-12-24 12:51 | Outpatient (RCR) | payer MEDICARE, OTHER ==
[2020-09-26 11:17] LABS: BASOPHILS % (AUTO) 1 % (0-10); EOSINOPHILS # (AUTO) 0.1 10^3/uL (0.0-0.3); EOSINOPHILS % (AUTO) 2 % (0-10); HEMATOCRIT 36 % (40-54); HEMOGLOBIN 11.1 g/dL (13.3-17.7); LYMPHOCYTES # (AUTO) 1.3 10^3/uL (1.0-4.0); LYMPHOCYTES % (AUTO) 24 % (12-44); MEAN CORPUSCULAR HEMOGLOBIN 25 pg (25-34); MEAN CORPUSCULAR HGB CONC 31 g/dL (32-36); MEAN CORPUSCULAR VOLUME 81 fL (80-99); MEAN PLATELET VOLUME 10.9 fL (9.0-12.2); MONOCYTES # (AUTO) 0.5 10^3/uL (0.0-1.0); MONOCYTES % (AUTO) 9 % (0-12); NEUTROPHILS # (AUTO) 3.3 10^3/uL (1.8-7.8); NEUTROPHILS % (AUTO) 64 % (42-75); PLATELET COUNT 215 10^3/uL (130-400); WHITE BLOOD COUNT 5.2 10^3/uL (4.3-11.0)
[2020-09-26 11:31] LABS: ALANINE AMINOTRANSFERASE 21 U/L (0-55); ALBUMIN 3.9 GM/DL (3.2-4.5); ALKALINE PHOSPHATASE 86 U/L (40-136); BILIRUBIN,TOTAL 0.4 MG/DL (0.1-1.0); BUN/CREATININE RATIO 25; CALCIUM 8.8 MG/DL (8.5-10.1); CARBON DIOXIDE 20 MMOL/L (21-32); CHLORIDE 106 MMOL/L (98-107); CREATININE SERUM 0.93 MG/DL (0.60-1.30); GFR ESTIMATED > 60; GLUCOSE 213 MG/DL (70-105); POTASSIUM 4.3 MMOL/L (3.6-5.0); SODIUM 137 MMOL/L (135-145); TOTAL PROTEIN 6.8 GM/DL (6.4-8.2)
[2020-12-18 11:13] LABS: BASOPHILS % (AUTO) 1 % (0-10); EOSINOPHILS % (AUTO) 0 % (0-10); HEMATOCRIT 39 % (40-54); HEMOGLOBIN 12.6 g/dL (13.3-17.7); LYMPHOCYTES # (AUTO) 1.3 10^3/uL (1.0-4.0); LYMPHOCYTES % (AUTO) 22 % (12-44); MEAN CORPUSCULAR HEMOGLOBIN 27 pg (25-34); MEAN CORPUSCULAR HGB CONC 32 g/dL (32-36); MEAN CORPUSCULAR VOLUME 85 fL (80-99); MONOCYTES # (AUTO) 0.4 10^3/uL (0.0-1.0); MONOCYTES % (AUTO) 6 % (0-12); NEUTROPHILS # (AUTO) 4.1 10^3/uL (1.8-7.8); NEUTROPHILS % (AUTO) 71 % (42-75); PLATELET COUNT 184 10^3/uL (130-400); WHITE BLOOD COUNT 5.7 10^3/uL (4.3-11.0)
[2020-12-18 11:36] LABS: ALANINE AMINOTRANSFERASE 27 U/L (0-55); ALBUMIN 3.8 GM/DL (3.2-4.5); ALKALINE PHOSPHATASE 93 U/L (40-136); BILIRUBIN,TOTAL 0.4 MG/DL (0.1-1.0); BUN/CREATININE RATIO 23; CALCIUM 8.9 MG/DL (8.5-10.1); CARBON DIOXIDE 26 MMOL/L (21-32); CHLORIDE 106 MMOL/L (98-107); CREATININE SERUM 0.84 MG/DL (0.60-1.30); GFR ESTIMATED > 60; GLUCOSE 203 MG/DL (70-105); POTASSIUM 4.4 MMOL/L (3.6-5.0); SODIUM 136 MMOL/L (135-145); TOTAL PROTEIN 6.4 GM/DL (6.4-8.2)
[~2020-12-24 12:51] MED LIST changes: +DICL100G18 TP; +LISI10TA25 PO; +TRAM-42 PO
== END 2020-12-25 | disposition home or self-care (01) ==
LOC: ONC 12:51
PROVIDERS: ATTEND Internal Medicine Hematology & Oncology
DX: D50.0 Iron deficiency anemia secondary to blood loss (chronic) (principal); K44.9 Diaphragmatic hernia without obstruction or gangrene; K29.50 Unspecified chronic gastritis without bleeding; E11.21 Type 2 diabetes mellitus with diabetic nephropathy; I10 Essential (primary) hypertension; K76.0 Fatty (change of) liver, not elsewhere classified; F10.21 Alcohol dependence, in remission; E66.9 Obesity, unspecified; Z68.30 Body mass index [BMI] 30.0-30.9, adult; Z79.82 Long term (current) use of aspirin; Z79.84 Long term (current) use of oral hypoglycemic drugs; Z79.899 Other long term (current) drug therapy; Z85.46 Personal history of malignant neoplasm of prostate
CPT/HCPCS: 80053; 82728; 83540; 83550; 85025; 99213

== ENCOUNTER 2021-05-31 08:22 | Observation (INO) | payer MEDICARE, OTHER ==
[2021-05-31] VITALS (10 sets, daily range): BP systolic 114–127; BP diastolic 71–98
[~2021-05-31] VITALS: Ht 182 cm; Wt 98.0 kg
[~2021-05-31 08:22] MED LIST changes: -OMEP40CA27 PO; +OMEP40CA6 PO; +TOLT2TAB19; -TOLT2TAB5
[2021-05-31] MEDS ORDERED: ONDANSETRON 4 MG/2 ML (SDV) Z0FRAN IVP ONE (08:30)
[2021-05-31 08:56] LABS: BASOPHILS % (AUTO) 1 % (0-10); EOSINOPHILS % (AUTO) 0 % (0-10); HEMATOCRIT 39 % (40-54); HEMOGLOBIN 11.5 g/dL (13.3-17.7); LYMPHOCYTES # (AUTO) 1.3 10^3/uL (1.0-4.0); LYMPHOCYTES % (AUTO) 18 % (12-44); MEAN CORPUSCULAR HEMOGLOBIN 24 pg (25-34); MEAN CORPUSCULAR HGB CONC 30 g/dL (32-36); MEAN CORPUSCULAR VOLUME 79 fL (80-99); MEAN PLATELET VOLUME 10.6 fL (9.0-12.2); MONOCYTES # (AUTO) 0.5 10^3/uL (0.0-1.0); MONOCYTES % (AUTO) 7 % (0-12); NEUTROPHILS # (AUTO) 5.7 10^3/uL (1.8-7.8); NEUTROPHILS % (AUTO) 75 % (42-75); PLATELET COUNT 282 10^3/uL (130-400); WHITE BLOOD COUNT 7.7 10^3/uL (4.3-11.0)
[2021-05-31 09:12] LABS: PROTHROMBIN TIME PATIENT 13.5 SEC (12.2-14.7)
[2021-05-31 09:13] LABS: ALBUMIN 4.2 GM/DL (3.2-4.5); CHLORIDE 103 MMOL/L (98-107); POTASSIUM 4.7 MMOL/L (3.6-5.0); SODIUM 137 MMOL/L (135-145)
[2021-05-31 09:14] LABS: CALCIUM 9.6 MG/DL (8.5-10.1)
[2021-05-31 09:15] LABS: GLUCOSE 179 MG/DL (70-105)
[2021-05-31 09:16] LABS: TOTAL PROTEIN 7.5 GM/DL (6.4-8.2)
[2021-05-31 09:17] LABS: BILIRUBIN,TOTAL 0.5 MG/DL (0.1-1.0); CARBON DIOXIDE 21 MMOL/L (21-32)
[2021-05-31 09:19] LABS: ALKALINE PHOSPHATASE 98 U/L (40-136); CREATININE SERUM 1.05 MG/DL (0.60-1.30); GFR ESTIMATED 71
[2021-05-31 09:20] LABS: BUN/CREATININE RATIO 16
[2021-05-31 09:22] LABS: ALANINE AMINOTRANSFERASE 28 U/L (0-55)
[2021-05-31 09:25] LABS: MAGNESIUM 1.7 MG/DL (1.6-2.4)
--- NOTE | 2021-05-31 09:32 | Diagnostic Imaging Report ---
INDICATION: Chest pain. EXAMINATION: Chest 05/31/2021 COMPARISON: 09/30/2014 FINDINGS: The cardiomediastinal silhouette is unremarkable. The pulmonary vasculature is within normal limits. The lungs and pleural spaces are clear. IMPRESSION: No evidence of an acute cardiopulmonary process. Dictated by: Dictated on workstation # [id number]
[2021-05-31] MEDS ORDERED: ASPIRIN 81 MG CHEW (CHILDREN'S ASA) PO ONE (11:00)
[2021-05-31] MEDS ORDERED: ENOXAPARIN 100 MG/1 ML (LOVENOX) SYR SC ONE (11:00)
[2021-05-31] MEDS ORDERED: FUROSEMIDE 40 MG/4 ML INJ (LASIX) IVP ONE (11:15)
--- NOTE | 2021-05-31 11:34 | ED Chest Pain ---
General Chief Complaint: Chest Pain Stated Complaint: CHEST TIGHTNESS,SOB Source: patient, old records Exam Limitations: no limitations History of Present Illness Date Seen by Provider: May 31, 2021 Time Seen by Provider: 08:25 Initial Comments This 65-year-old gentleman presents to the emergency room with complaints of chest pressure and tightness as well as dyspnea, worsening with exertion persistently over the last week. He had a COVID-19 test performed at onset of symptoms which was reportedly negative. He had a remote work-up with stress test several years ago that was negative. He has diabetes treated with Metformin but has no known history of cardiopulmonary problems. No cough or fever. He has a pending appointment with Dr. Ervin. Allergies and Home Medications Allergies Coded Allergies: No Known Drug Allergies (Unverified , 12/11/19) Patient Home Medication List Home Medication List Reviewed: Yes Atorvastatin Calcium (Atorvastatin Calcium) 20 Mg Tablet, 20 MG PO DAILY, (Reported) Entered as Reported by: JS PASTOR on 12/10/191414 Last Action: Reviewed Clonazepam (Clonazepam) 1 Mg Tablet, 1 MG PO DAILY PRN for ANXIETY, (Reported) Entered as Reported by: JS PASTOR on 12/10/191414 Last Action: Reviewed Diclofenac Sodium (Diclofenac Sodium) 75 Mg Tablet.dr, 75 MG PO BID, (Reported) Entered as Reported by: JS PASTOR on 12/10/191414 Last Action: Reviewed Diclofenac Sodium (Voltaren) 100 Gm Gel..gram., 100 GM TP TID Prescribed by: SAKINA FERGUSON on 06/16/20 1635 Last Action: Reviewed Fluoxetine HCl (Fluoxetine HCl) 40 Mg Capsule, 40 MG PO DAILY, (Reported) Entered as Reported by: JS PASTOR on 12/10/191414 Last Action: Reviewed Fluoxetine HCl (Fluoxetine HCl) 10 Mg Capsule, 10 MG PO BID Prescribed by: Lorie Cadena on 05/31/211831 Last Action: New Order Glipizide (Glipizide ER) 5 Mg Tab.er.24, 10 MG PO BID Prescribed by: Lorie Cadena on 05/31/211831 Last Action: New Order Irbesartan (Irbesartan) 75 Mg Tablet, 75 MG PO BID, (Reported) Entered as Reported by: JS PASTOR on 12/10/19 141 Last Action: Reviewed Lamotrigine (Lamotrigine) 100 Mg Tablet, 100 MG PO BID, (Reported) Entered as Reported by: MAHESH GARCIA on 03/25/16 1029 Last Action: Reviewed Metformin HCl (Metformin HCl) 1,000 Mg Tablet, 1,000 MG PO BID, (Reported) Entered as Reported by: MAHESH GARCIA on 03/25/16 1029 Last Action: Reviewed Discontinued Medications Ketorolac Tromethamine (Ketorolac Tromethamine) 10 Mg Tablet, 10 MG PO TID PRN for PAIN-SEVERE (8-10) Discontinued Reason: No Longer Taking Prescribed by: INESSA NEWTON on 11/29/191833 Last Action: Discontinued Nitrofurantoin Monohyd/M-Cryst (Macrobid 100 mg Capsule) 100 Mg Capsule, 1 TAB PO BID WITH MEALS Discontinued Reason: No Longer Taking Prescribed by: CHAYA MORENO on 12/11/19936 Last Action: Discontinued Ondansetron (Ondansetron Odt) 4 Mg Tab.rapdis, 4 MG PO Q4H PRN for NAUSEA/VOMITING Discontinued Reason: No Longer Taking Prescribed by: INESSA NEWTON on 11/29/191834 Last Action: Discontinued Pantoprazole Sodium (Pantoprazole Sodium) 40 Mg Tablet.dr, 40 MG PO DAILY, (Reported) Discontinued Reason: No Longer Taking Entered as Reported by: JS PASTOR on 12/10/19 141 Last Action: Discontinued Tamsulosin HCl (Flomax) 0.4 Mg Cap, 0.4 MG PO DAILY Discontinued Reason: No Longer Taking Prescribed by: CHAYA MORENO on 12/11/19936 Last Action: Discontinued Tramadol HCl (Ultram) 50 Mg Tablet, 50 MG PO Q4H Discontinued Reason: No Longer Taking Prescribed by: SAKINA FERGUSON on 06/16/20 1635 Last Action: Discontinued Review of Systems Review of Systems Constitutional: see HPI, weakness EENTM: No Symptoms Reported Respiratory: See HPI, SOA With Exertion Cardiovascular: See HPI, Chest Pain Gastrointestinal: No Symptoms Reported Genitourinary: No Symptoms Reported Musculoskeletal: no symptoms reported Skin: no symptoms reported Psychiatric/Neurological: No Symptoms Reported Endocrine: No Symptoms Reported Hematologic/Lymphatic: No Symptoms Reported Past Jnpxnqp-Tmsged-Bcxkji Hx Patient Social History Tobacco Use?: No Immunizations Up To Date Tetanus Booster (TDap): Unknown PED Vaccines UTD: Yes Seasonal Allergies Seasonal Allergies: No Past Medical History Surgeries: Yes (ORAL SURGERY-PULLED 3 TEETH, PROSTATECTOMY 2015, ureteroscopy) Gallbladder, Prostatectomy, Tonsillectomy Respiratory: No Currently Using CPAP: No Currently Using BIPAP: No Cardiac: Yes High Cholesterol, Hypertension Neurological: No (HX OF 2 EPISODES OF BLACKING OUT-POSSIBLE SEIZURES 2012) Reproductive Disorders: No Sexually Transmitted Disease: No HIV/AIDS: No Genitourinary: Yes (PROSTATE CANCER 2016--S/P SURGERY) Prostate Problems, Kidney Stones Gastrointestinal: Yes Gastroesophageal Reflux Musculoskeletal: Yes (SPINAL STENOSIS--CERVICAL SPINE) Degenerate Disk Disease, Arthritis, Chronic Back Pain Endocrine: Yes Diabetes, Non-Insulin dep HEENT: Yes Cataract Loss of Vision: Bilateral Hearing Impairment: Denies Cancer: Yes Prostate Did You Recieve Any Treatments: Yes What Type of Treatment Did You: Surgical Intervention Psychosocial: Yes Anxiety, Bipolar, Depression Integumentary: No Blood Disorders: Yes (HX-ANEMIA) Adverse Reaction/Blood Tranf: No (N/A) Family Medical History Cardiovascular disease G8 SISTER Completed stroke 19 FATHER Diabetes mellitus 19 FATHER 19 MOTHER G8 SISTER Hypercholesterolemia G8 BROTHER Hypertension 19 FATHER 19 MOTHER G8 BROTHER Myocardial infarction 19 MOTHER Prostate cancer 19 FATHER Thyroid disease 19 MOTHER G8 SISTER No Pertinent Family Hx Physical Exam Vital Signs Vital Signs - First Documented 05/31/21 08:30 Temp 36.6 Pulse 75 Resp 18 B/P (MAP) 127/81 (96) Pulse Ox 99 Capillary Refill : Height, Weight, BMI Height: 6'0.00" Weight: 220lbs. 2.0oz. 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 Norm as Tested Skin: Normal Color, Warm/Dry Progress/Results/Core Measures Results/Orders Lab Results Laboratory Tests Test 05/31/21 08:50 05/31/21 10:00 Range/Units White Blood Count 7.7 4.3-11.0 10^3/uL Red Blood Count 4.86 4.30-5.52 10^6/uL Hemoglobin 11.5 L 13.3-17.7 g/dL Hematocrit 39 L 40-54 % Mean Corpuscular Volume 79 L 80-99 fL Mean Corpuscular Hemoglobin 24 L 25-34 pg Mean Corpuscular Hemoglobin Concent 30 L 32-36 g/dL Red Cell Distribution Width 15.2 H 10.0-14.5 % Platelet Count 282 130-400 10^3/uL Mean Platelet Volume 10.6 9.0-12.2 fL Immature Granulocyte % (Auto) 0 % Neutrophils (%) (Auto) 75 42-75 % Lymphocytes (%) (Auto) 18 12-44 % Monocytes (%) (Auto) 7 0-12 % Eosinophils (%) (Auto) 0 0-10 % Basophils (%) (Auto) 1 0-10 % Neutrophils # (Auto) 5.7 1.8-7.8 10^3/uL Lymphocytes # (Auto) 1.3 1.0-4.0 10^3/uL Monocytes # (Auto) 0.5 0.0-1.0 10^3/uL Eosinophils # (Auto) 0.0 0.0-0.3 10^3/uL Basophils # (Auto) 0.0 0.0-0.1 10^3/uL Immature Granulocyte # (Auto) 0.0 0.0-0.1 10^3/uL Prothrombin Time 13.5 12.2-14.7 SEC INR Comment 1.0 0.8-1.4 Activated Partial Thromboplast Time 30 24-35 SEC D-Dimer < 0.27 0.00-0.49 UG/ML Sodium Level 137 135-145 MMOL/L Potassium Level 4.7 3.6-5.0 MMOL/L Chloride Level 103 98-107 MMOL/L Carbon Dioxide Level 21 21-32 MMOL/L Anion Gap 13 5-14 MMOL/L Blood Urea Nitrogen 17 7-18 MG/DL Creatinine 1.05 0.60-1.30 MG/DL Estimat Glomerular Filtration Rate 71 BUN/Creatinine Ratio 16 Glucose Level 179 H 70-105 MG/DL Calcium Level 9.6 8.5-10.1 MG/DL Corrected Calcium 9.4 8.5-10.1 MG/DL Magnesium Level 1.7 1.6-2.4 MG/DL Total Bilirubin 0.5 0.1-1.0 MG/DL Aspartate Amino Transf (AST/SGOT) 20 5-34 U/L Alanine Aminotransferase (ALT/SGPT) 28 0-55 U/L Alkaline Phosphatase 98 40-136 U/L Myoglobin 38.4 10.0-92.0 NG/ML Troponin I < 0.028 <0.028 NG/ML C-Reactive Protein High Sensitivity 0.44 0.00-0.50 MG/DL B-Type Natriuretic Peptide < 10.0 <100.0 PG/ML Total Protein 7.5 6.4-8.2 GM/DL Albumin 4.2 3.2-4.5 GM/DL Influenza Type A (RT-PCR) Not Detected Not Detecte Influenza Type B (RT-PCR) Not Detected Not Detecte SARS-CoV-2 RNA (RT-PCR) Not Detected Not Detecte My Orders Orders - JALEEL RYDER MD Cbc With Automated Diff (05/31/21 08:25) Comprehensive Metabolic Panel (05/31/21 08:25) Ed Iv/Invasive Line Start (05/31/21 08:25) Magnesium (05/31/21 08:33) Chest 1 View, Ap/Pa Only (05/31/21 08:33) Ekg Tracing (05/31/21 08:33) Myoglobin Serum (05/31/21 08:33) Protime With Inr (05/31/21 08:33) Partial Thromboplastin Time (05/31/21 08:33) O2 (05/31/21 08:33) Monitor-Rhythm Ecg Trace Only (05/31/21 08:33) Lipid Panel (06/01/21 05:00) Troponin I (05/31/21 08:33) BNP (05/31/21 08:33) Hs C Reactive Protein (05/31/21 08:33) Fibrin Degradation Products (05/31/21 09:48) Influenza A And B By Pcr (05/31/21 09:48) Covid 19 Inhouse Test (05/31/21 09:48) Aspirin Chewable Tablet (Baby Aspirin Ch (05/31/21 11:00) Enoxaparin Injection (Lovenox Injection) (05/31/21 11:00) Furosemide Injection (Lasix Injection) (05/31/21 11:15) Medications Given in ED Current Medications Medications Dose Ordered Sig/Keanu Route Start Time Stop Time Status Last Admin Dose Admin Aspirin 324 mg ONCE ONCE PO 05/31/21 11:00 05/31/21 11:01 DC 05/31/21 11:58 324 MG Enoxaparin Sodium 90 mg ONCE ONCE SC 05/31/21 11:00 05/31/21 11:01 DC 05/31/21 11:58 90 MG Furosemide 20 mg ONCE ONCE IVP 05/31/21 11:15 05/31/21 11:16 DC 05/31/21 11:59 20 MG Vital Signs/I&O 05/31/21 08:30 Temp 36.6 Pulse 75 Resp 18 B/P (MAP) 127/81 (96) Pulse Ox 99 Progress Progress Note : Time: 11:31 Progress Note Aspirin was administered, but no nitroglycerin was given due to systolic blood pressures. Case was reviewed with Dr. Garcia. Due to his risk factors with diabetes and age, admission for observation and cardiac rule out is appropriate. Dr. Garcia requested Lovenox and Lasix also be given. These were ordered in the ER. Work-up was unremarkable and patient had minimal discomfort at the time of admission. Influenza and Covid screens were negative in the ER. Initial ECG Impression Date: May 31, 2021 Initial ECG Impression Time: 08:29 Initial ECG Rate: 70 Initial ECG Rhythm: Normal Sinus Initial ECG Intervals: Normal Initial ECG Impression: Normal Comment Normal sinus rhythm with no ST elevation or depression. No abnormal intervals or axis deviation. Diagnostic Imaging Diagonstic Imaging: Xray Plain Films/CT/US/NM/MRI: chest Comments NAME: MEG LATHAM [facility] REC#: [id number] PT STATUS: REG ER : 1955 PHYSICIAN: JALEEL RYDER MD ADMIT DATE: 05/31/21/ER Draft Date of Exam:05/31/21 CHEST 1 VIEW, AP/PA ONLY INDICATION: Chest pain. EXAMINATION: Chest 05/31/2021 COMPARISON: 09/30/2014 FINDINGS: The cardiomediastinal silhouette is unremarkable. The pulmonary vasculature is within normal limits. The lungs and pleural spaces are clear. IMPRESSION: No evidence of an acute cardiopulmonary process. Dictated on workstation # [id number] Dict: 05/31/21930 Trans: 05/31/21931 CVB [id number] Interpreted by: SYLVIA COUGHLIN MD Departure Communication (Admissions) Time/Spoke to Admitting Phy: 10:25 Dr. Chapman Time/Spoke to Consulting Phy: 10:40 Dr. Garcia Impression Primary Impression: Chest pain Qualified Codes: R07.9 - Chest pain, unspecified Additional Impression: Dyspnea on exertion Disposition: ADMITTED INPATIENT Condition: Stable Admissions Decision to Admit Reason: Admit from ER (General) Decision to Admit/Date: May 31, 2021 Time/Decision to Admit Time: 10:25 Departure-Patient Inst. Referrals: [facility] (PCP/Family) Primary Care Physician Scripts Fluoxetine HCl (Fluoxetine HCl) 10 Mg Capsule 10 MG PO BID for 30 Days, #60 CAP Prov: HORACE CHAPMAN MD 05/31/21 Glipizide (Glipizide ER) 5 Mg Tab.er.24 10 MG PO BID for 30 Days, #60 % Prov: HORACE CHAPMAN MD 05/31/21 Copy Copies To 1: BRY ROMERO JOSHUA T MD May 31, 2021 11:34
--- NOTE | 2021-05-31 12:31 | Consultation-Cardiology ---
HPI-Cardiology Cardiology Consultation Date of Consultation 05/31/21 Date of Admission Time Seen by Provider: 12:28 Indication: Chest pain HPI [id number] years old gentleman with history of hypertension, hyperlipidemia, has been having increasing chest pain described as dull achiness in the retrosternal area associated with shortness of breath on exertion, reporting mild orthostatic dizziness. No full syncope was reported. Came into the ER for increasing chest pain and shortness of breath today. EKG and cardiac enzymes were within normal limits. Currently no active chest pain was reported Home Medications & Allergies Allergies: Coded Allergies: No Known Drug Allergies (Unverified , 12/11/19) Home Medication List Reviewed: Yes MYE-Bziwzb-Ovcymc Hx Patient Social History Marital Status: Drug of Choice: 12YRS AGO-COCAINE AND MARIJUANA 2nd Hand Smoke Exposure: No Recent Hopitalizations: No Have you traveled recently?: No Alcohol Use?: No Immunizations Up To Date Tetanus Booster (TDap): Unknown Date of Pneumonia Vaccine: Jul 17, 2014 Date of Influenza Vaccine: May 08, 2019 Past Medical History Discussed below Family Medical History Significant Family History: No Pertinent Family Hx Family History: Cardiovascular disease G8 SISTER Completed stroke 19 FATHER Diabetes mellitus 19 FATHER 19 MOTHER G8 SISTER Hypercholesterolemia G8 BROTHER Hypertension 19 FATHER 19 MOTHER G8 BROTHER Myocardial infarction 19 MOTHER Prostate cancer 19 FATHER Thyroid disease 19 MOTHER G8 SISTER Review of Systems-General Review of Systems Constitutional: no symptoms reported, see HPI EENTM: see HPI, no symptoms reported Respiratory: see HPI; No cough; dyspnea on exertion; No hemoptysis, No orthopnea, No phlegm, No short of breath, No stridor, No wheezing, No other Cardiovascular: see HPI, chest pain; No edema, No Hx of Intervention, No palpitations, No syncope, No vascular heart diseas, No other Gastrointestinal: no symptoms reported, see HPI Genitourinary: no symptoms reported, see HPI Musculoskeletal: no symptoms reported, see HPI Skin: no symptoms reported, see HPI Psychiatric/Neurological: No Symptoms Reported, See HPI Reviewed Test Results Reviewed Test Results Lab Laboratory Tests Test 05/31/21 08:50 05/31/21 10:00 Range/Units White Blood Count 7.7 4.3-11.0 10^3/uL Red Blood Count 4.86 4.30-5.52 10^6/uL Hemoglobin 11.5 L 13.3-17.7 g/dL Hematocrit 39 L 40-54 % Mean Corpuscular Volume 79 L 80-99 fL Mean Corpuscular Hemoglobin 24 L 25-34 pg Mean Corpuscular Hemoglobin Concent 30 L 32-36 g/dL Red Cell Distribution Width 15.2 H 10.0-14.5 % Platelet Count 282 130-400 10^3/uL Mean Platelet Volume 10.6 9.0-12.2 fL Immature Granulocyte % (Auto) 0 % Neutrophils (%) (Auto) 75 42-75 % Lymphocytes (%) (Auto) 18 12-44 % Monocytes (%) (Auto) 7 0-12 % Eosinophils (%) (Auto) 0 0-10 % Basophils (%) (Auto) 1 0-10 % Neutrophils # (Auto) 5.7 1.8-7.8 10^3/uL Lymphocytes # (Auto) 1.3 1.0-4.0 10^3/uL Monocytes # (Auto) 0.5 0.0-1.0 10^3/uL Eosinophils # (Auto) 0.0 0.0-0.3 10^3/uL Basophils # (Auto) 0.0 0.0-0.1 10^3/uL Immature Granulocyte # (Auto) 0.0 0.0-0.1 10^3/uL Prothrombin Time 13.5 12.2-14.7 SEC INR Comment 1.0 0.8-1.4 Activated Partial Thromboplast Time 30 24-35 SEC D-Dimer < 0.27 0.00-0.49 UG/ML Sodium Level 137 135-145 MMOL/L Potassium Level 4.7 3.6-5.0 MMOL/L Chloride Level 103 98-107 MMOL/L Carbon Dioxide Level 21 21-32 MMOL/L Anion Gap 13 5-14 MMOL/L Blood Urea Nitrogen 17 7-18 MG/DL Creatinine 1.05 0.60-1.30 MG/DL Estimat Glomerular Filtration Rate 71 BUN/Creatinine Ratio 16 Glucose Level 179 H 70-105 MG/DL Calcium Level 9.6 8.5-10.1 MG/DL Corrected Calcium 9.4 8.5-10.1 MG/DL Magnesium Level 1.7 1.6-2.4 MG/DL Total Bilirubin 0.5 0.1-1.0 MG/DL Aspartate Amino Transf (AST/SGOT) 20 5-34 U/L Alanine Aminotransferase (ALT/SGPT) 28 0-55 U/L Alkaline Phosphatase 98 40-136 U/L Myoglobin 38.4 10.0-92.0 NG/ML Troponin I < 0.028 <0.028 NG/ML C-Reactive Protein High Sensitivity 0.44 0.00-0.50 MG/DL B-Type Natriuretic Peptide < 10.0 <100.0 PG/ML Total Protein 7.5 6.4-8.2 GM/DL Albumin 4.2 3.2-4.5 GM/DL Influenza Type A (RT-PCR) Not Detected Not Detecte Influenza Type B (RT-PCR) Not Detected Not Detecte SARS-CoV-2 RNA (RT-PCR) Not Detected Not Detecte Physical Exam Physical Exam Vital Signs Vital Signs - First Documented 05/31/21 08:30 Temp 36.6 Pulse 75 Resp 18 B/P (MAP) 127/81 (96) Pulse Ox 99 Capillary Refill : Less Than 3 Seconds Height, Weight, BMI Height: 6'0.00" Weight: 220lbs. 2.0oz. 99.564879cl; 29.00 BMI Method:Stated General Appearance: No Apparent Distress, WD/WN Eyes: Bilateral Eye Normal Inspection, Bilateral Eye PERRL, Bilateral Eye EOMI HEENT: PERRL/EOMI, TMs Normal, Normal ENT Inspection, Pharynx Normal, Moist Mucous Membranes Neck: Full Range of Motion, Normal Inspection, Non Tender, Supple, Carotid Bruit Respiratory: Chest Non Tender, Normal Breath Sounds, No Accessory Muscle Use, No Respiratory Distress Cardiovascular: Regular Rate, Rhythm, No Edema, No Gallop, No JVD, No Murmur, Normal Peripheral Pulses Gastrointestinal: Normal Bowel Sounds, No Organomegaly, No Pulsatile Mass, Non Tender, Soft Back: Normal Inspection, No CVA Tenderness, No Vertebral Tenderness Extremity: Normal Capillary Refill, Normal Inspection, Normal Range of Motion, Non Tender, No Calf Tenderness, No Pedal Edema Neurologic/Psychiatric: Alert, Oriented x3, No Motor/Sensory Deficits, Normal Mood/Affect Skin: Normal Color, Warm/Dry Lymphatic: No Adenopathy A/P-Cardiology Admission Diagnosis Chest pain Dyspnea Hypertension Hyperlipidemia Assessment/Plan Chest pain with shortness of breath, resembling angina, accelerating angina, cardiac enzymes were negative, EKG did not show any acute abnormality, I am planning to evaluate exercise stress test in the morning. Continue to monitor cardiac enzymes, started on aspirin and Lovenox Hypertension, restart home medication and monitor blood pressure Hyperlipidemia, monitor lipids Diabetes mellitus, followed and managed by primary care physician Clinical Quality Measures AMI/AHF: ASA po Prior to arrival: JUSTINA Rahman MD May 31, 2021 12:31
[2021-05-31] MEDS ORDERED: morphine INJ 4 MG/ML 1 ML (VIAL/SYRINGE) IV PRN (13:00)
[2021-05-31] MEDS ORDERED: ONDANSETRON 4 MG/2 ML (SDV) Z0FRAN IVP PRN (13:00)
[2021-05-31] MEDS ORDERED: NITROGLYCERIN 0.4 MG SL TABS BTL 25'S SL PRN (13:00)
[2021-05-31] MEDS ORDERED: FLUO10CA31 PO (18:32)
[2021-05-31] MEDS ORDERED: GLIP5TAB26 PO (18:32)
[2021-05-31] MEDS ORDERED: ENOXAPARIN 100 MG/1 ML (LOVENOX) SYR SC SCH (23:00)
[2021-06-01 03:11] VITALS: BP 121/60
[2021-06-01 06:24] LABS: BASOPHILS % (AUTO) 1 % (0-10); EOSINOPHILS % (AUTO) 0 % (0-10); HEMATOCRIT 37 % (40-54); HEMOGLOBIN 11.2 g/dL (13.3-17.7); LYMPHOCYTES # (AUTO) 1.6 10^3/uL (1.0-4.0); LYMPHOCYTES % (AUTO) 20 % (12-44); MEAN CORPUSCULAR HEMOGLOBIN 23 pg (25-34); MEAN CORPUSCULAR HGB CONC 30 g/dL (32-36); MEAN CORPUSCULAR VOLUME 77 fL (80-99); MEAN PLATELET VOLUME 10.6 fL (9.0-12.2); MONOCYTES # (AUTO) 0.6 10^3/uL (0.0-1.0); MONOCYTES % (AUTO) 7 % (0-12); NEUTROPHILS # (AUTO) 5.8 10^3/uL (1.8-7.8); NEUTROPHILS % (AUTO) 72 % (42-75); PLATELET COUNT 253 10^3/uL (130-400)
[2021-06-01 06:39] LABS: CHLORIDE 104 MMOL/L (98-107); POTASSIUM 4.1 MMOL/L (3.6-5.0); SODIUM 138 MMOL/L (135-145)
[2021-06-01 06:40] LABS: CALCIUM 9.3 MG/DL (8.5-10.1)
[2021-06-01 06:41] LABS: GLUCOSE 127 MG/DL (70-105); TRIGLYCERIDES 121 MG/DL (<150); VLDL CHOLESTEROL 24 MG/DL (5-40)
[2021-06-01 06:42] LABS: CARBON DIOXIDE 23 MMOL/L (21-32)
[2021-06-01 06:44] LABS: CREATININE SERUM 0.94 MG/DL (0.60-1.30); GFR ESTIMATED 81
[2021-06-01 06:46] LABS: BUN/CREATININE RATIO 21; CHOLESTEROL 116 MG/DL (< 200)
[2021-06-01 06:47] LABS: HDL CHOLESTEROL 33 MG/DL (40-60)
[2021-06-01] MEDS ORDERED: CATHETER FLUSH 10 ML SYR IV PRN (07:00)
[2021-06-01 08:00] VITALS: BP_SYST 136; BP_SYST 146; BP_DIAS 77; BP_DIAS 90
[2021-06-01] MEDS: ASPIRIN E.C. 81 MG (ECOTRIN) TAB PO SCH ×2 (09:27→09:51)
--- NOTE | 2021-06-01 09:27 | NUCLEAR STRESS TEST ---
TREADMILL NUCLEAR STRESS TEST Date of procedure: 06/01/2021. Primary care provider: [facility]. Admitting physician: Satnam Ervin Jr., MD. INDICATION: Chest pain. BASELINE ELECTROCARDIOGRAM: Sinus rhythm, unremarkable tracing. STRESS TEST PROCEDURE: The patient was exercised for a total of 4 minutes and 0 seconds of the standard Jb protocol achieving a maximum MET level of 5.8. The resting heart rate was 68 bpm and the peak heart rate was 140 bpm, which repr esents 90% of the maximum predicted heart rate. The resting blood pressure was 136/90 mmHg and the peak blood pressure was 188/103 mmHg. This represents a normal heart rate and a normal blood pressure response to exercise. The test was stopped due to dyspnea. There was no chest discomfort during the test. There were no arrhythmias during the test. There were no significant stress induced electrocardiogram changes. The patient exhibited fair exercise capacity for age. NUCLEAR PROCEDURE: The patient was administered 11 mCi of intravenous technetium 99m Tetrofosmin at rest for the rest images. The patient was subsequently admin istered 32.4 mCi of intravenous technetium 99 M Tetrofosmin at peak stress for the stress images. Following an appropriate wait after each injection, imaging was obtained. The images were subsequently processed and reformatted in the usual views. Gated imaging was obtained. The image quality was adequate but with some gastrointestinal attenuation artifact. CT attenuation correction was used as a adjunct to standard imaging. Both the corrected and uncorrected images were reviewed for interpretation. NUCLEAR RESULTS: There was normal myocardial perfusion in all segments without evidence of infarction or ischemia. There was normal left ventricular chamber size with an end-diastolic volume of 50 mL and an end-systolic volume of 22 mL. There was no evidence of transient ischemic dilatation. The TID ratio was 1.05. There was normal wall motion in all segments with a calculated ejection fraction of 56%. IMPRESSION: 1. Normal heart rate and blood pressure response to exercise. 2. There was no exercise-induced chest discomfort, arrhythmias, or electrocardiogram changes during the test. 3. The patient exhibited fair exercise capacity for age at 4 minutes of the Jb protocol. 4. There was normal myocardial perfusion in all segments without evidence of in farction or ischemia. 5. There was normal wall motion in all segments with a calculated ejection fraction 56%. Certain portions of this document may have been dictated utilizing voice recognition technology. Inherent to this technology, typographical and grammatical errors may exist. As much as I am diligent to identify and correct these mistakes, some errors may remain in the document. SATNAM ERVIN JR, MD Jun 01, 2021 09:27
[2021-06-01 12:00] VITALS: BP 123/66
--- NOTE | 2021-06-01 12:49 | Cardiology Progress Note ---
Progress Note-Cardiology Events since last exam Date Seen by Provider: Jun 01, 2021 Time Seen by Provider: 12:48 Events since last exam We are following him for chest pain. His chest pain and dyspnea have resolved. His main complaint for requesting a visit to see me has been progressive dyspnea on exertion. He denies palpitations, syncope or ankle edema. Certain portions of this document may have been dictated utilizing voice recognition technology. Inherent to this technology, typographical and grammat ical errors may exist. As much as I am diligent to identify and correct these mistakes, some errors may remain in the document. Vitals Last set of Vitals Signs Vital Signs 06/01/21 06/01/21 08:00 09:00 Temp 36.4 Pulse 71 Resp 18 B/P (MAP) 136/90 (105) Pulse Ox 99 O2 Delivery Room Air Labs Labs Laboratory Tests 06/01/21 06:00 Exam Vital Signs Vital Signs Date Time Temp Pulse Resp B/P (MAP) Pulse Ox O2 Delivery O2 Flow Rate FiO2 06/01/21 09:00 Room Air 06/01/21 08:00 71 136/90 (105) 99 06/01/21 08:00 36.4 18 Physical Exam General: Alert. No acute distress. Eye: No xanthelasma. HENT: Normocephalic. Neck: Jugular venous pressure does not appear elevated. Respiratory: Lungs are clear to auscultation. Respirations are non-labored. Breath sounds are equal. Symmetrical chest wall expansion. Cardiovascular: Normal rate. Regular rhythm. No murmur. No gallop. No edema. Gastrointestinal: Soft. Normal bowel sounds. Skin: Warm. Dry. Neurologic: Alert and oriented to person, place, time. Cranial nerves 3-11 grossly intact. Psychiatric: Cooperative. Appropriate mood & affect. Labs Laboratory Tests Test 05/31/21 15:44 06/01/21 06:00 Range/Units Troponin I < 0.028 < 0.028 <0.028 NG/ML White Blood Count 8.0 4.3-11.0 10^3/uL Red Blood Count 4.78 4.30-5.52 10^6/uL Hemoglobin 11.2 L 13.3-17.7 g/dL Hematocrit 37 L 40-54 % Mean Corpuscular Volume 77 L 80-99 fL Mean Corpuscular Hemoglobin 23 L 25-34 pg Mean Corpuscular Hemoglobin Concent 30 L 32-36 g/dL Red Cell Distribution Width 15.3 H 10.0-14.5 % Platelet Count 253 130-400 10^3/uL Mean Platelet Volume 10.6 9.0-12.2 fL Immature Granulocyte % (Auto) 0 % Neutrophils (%) (Auto) 72 42-75 % Lymphocytes (%) (Auto) 20 12-44 % Monocytes (%) (Auto) 7 0-12 % Eosinophils (%) (Auto) 0 0-10 % Basophils (%) (Auto) 1 0-10 % Neutrophils # (Auto) 5.8 1.8-7.8 10^3/uL Lymphocytes # (Auto) 1.6 1.0-4.0 10^3/uL Monocytes # (Auto) 0.6 0.0-1.0 10^3/uL Eosinophils # (Auto) 0.0 0.0-0.3 10^3/uL Basophils # (Auto) 0.0 0.0-0.1 10^3/uL Immature Granulocyte # (Auto) 0.0 0.0-0.1 10^3/uL Sodium Level 138 135-145 MMOL/L Potassium Level 4.1 3.6-5.0 MMOL/L Chloride Level 104 98-107 MMOL/L Carbon Dioxide Level 23 21-32 MMOL/L Anion Gap 11 5-14 MMOL/L Blood Urea Nitrogen 20 H 7-18 MG/DL Creatinine 0.94 0.60-1.30 MG/DL Estimat Glomerular Filtration Rate 81 BUN/Creatinine Ratio 21 Glucose Level 127 H 70-105 MG/DL Calcium Level 9.3 8.5-10.1 MG/DL Triglycerides Level 121 <150 MG/DL Cholesterol Level 116 < 200 MG/DL LDL Cholesterol Direct 67 1-129 MG/DL VLDL Cholesterol 24 5-40 MG/DL HDL Cholesterol 33 L 40-60 MG/DL Diagnosis/Problems Diagnosis/Problems (1) Chest pain Status: Acute Assessment & Plan: Exact etiology unclear. This has now resolved. He had negative troponin levels and he underwent a treadmill nuclear stress test that was normal. I suspect this may be noncardiac chest discomfort, possibly related to gastroesophageal reflux disease. I recommend he start taking his pantoprazole twice a day. I have ordered an echocardiogram to assess for any structural heart disease that could cause chest discomfort. He can probably need to be discharged home later today. I have asked him to follow-up with me in the office in 1 month. (2) Dyspnea on exertion Status: Acute Assessment & Plan: Etiology unclear. He is a lifelong non-smoker. His nuclear stress test was normal. I will have him undergo an echocardiogram later today. (3) Primary hypertension Assessment & Plan: Blood pressures appear reasonably well controlled with his normal outpatient medication. (4) Mixed hyperlipidemia Assessment & Plan: His lipid panel looks very well controlled on his blood work from this admission. Continue statin medication. (5) Overweight Assessment & Plan: He is trying to lose some weight. Problem Qualifiers (1) Chest pain: Chest pain type: unspecified Qualified Codes: R07.9 - Chest pain, unspecified ÁNGELA SWIFT JR, MD Jun 01, 2021 12:49
[2021-06-01] MEDS ORDERED: PANTOPRAZOLE 40 MG (PROTONIX) TAB PO NR (13:00)
[2021-06-01] MEDS ORDERED: DIAZ5TAB49 PO (13:20)
[2021-06-01] MEDS ORDERED: FLUO10CA31 PO (13:20)
[2021-06-01] MEDS ORDERED: BUPR150T24 PO (13:20)
[2021-06-01] MEDS ORDERED: PANT40TA52 PO ×2 (13:21→14:16)
[2021-06-01] MEDS ORDERED: IRBE150T23 PO (13:24)
[2021-06-01] MEDS ORDERED: GLIP10TA24 PO (13:24)
[2021-06-01] MEDS ORDERED: EMPA10TA PO (13:24)
[2021-06-01] MEDS ORDERED: ACET-2267 PO (13:26)
[2021-06-01] MEDS ORDERED: POLY1DRO OP (13:26)
[2021-06-01] MEDS ORDERED: TRAM50TA3 PO (13:29)
--- NOTE | 2021-06-01 14:22 | Short Stay Summary ---
HPI History of Present Illness: 65 yo M with chest pain x 1 week that worsened overnight. States that it felt like a heaviness in his chest. Denies any numbness or pain into R jaw or R arm. Denies h/o cardiac problems. + FM, mother had OK in her 50s. Never had stress testing or cath. Source: patient Exam Limitations: no limitations Date seen by provider: Jun 01, 2021 Time Seen by Provider: 10:45 Attending Physician Cresencio Gutierrez MD [facility] Consult Date of Admission May 31, 2021 at 11:29 Home Medications Home Medications Reviewed patient Home Medication Reconciliation performed by pharmacy medication reconciliations irrigation technician and/or nursing. Patients Allergies have been reviewed. Allergies Coded Allergies: No Known Drug Allergies (Unverified , 12/11/19) RTS-Csdmsk-Kixnso Hx Patient Social History Marrital Status: Drug of Choice: 12YRS AGO-COCAINE AND MARIJUANA 2nd Hand Smoke Exposure: No Recent Hopitalizations: No Alcohol Use?: No Have you traveled recently?: No Immunizations Up To Date Tetanus Booster (TDap): Unknown Date of Pneumonia Vaccine: Jul 17, 2014 Date of Influenza Vaccine: May 08, 2019 Past Medical History Past Medical History 1. Depression 2. Anxiety 3. Diabetes Mellitus 4. Obesity 5. Epigastric pain with thickening on CT will need outpatient EGD 6. Hypertension 7. Hyperlipidemia 8. Gastroperesis with Sliding Hiatal Hernia, and Moderate Gastritis per [facility] 01/17 , Pt. needs to return to [facility] for follow up 9. Peripheral Neuropathy 10. History of Chronic Headaches evaluated by Neurology Past Surgical History 1. Cholecystectomy 2. Tonsillectomy 3. EGD and Colonoscopy 2011 Family Medical History Significant Family History: No Pertinent Family Hx Family History: Cardiovascular disease G8 SISTER Completed stroke 19 FATHER Diabetes mellitus 19 FATHER 19 MOTHER G8 SISTER Hypercholesterolemia G8 BROTHER Hypertension 19 FATHER 19 MOTHER G8 BROTHER Myocardial infarction 19 MOTHER Prostate cancer 19 FATHER Thyroid disease 19 MOTHER G8 SISTER Review of Systems (CHC) Constitutional: no symptoms reported; No chills, No fever, No malaise, No weakness EENTM: no symptoms reported; No mouth pain, No nose congestion Respiratory: no symptoms reported; No cough, No dyspnea on exertion, No short of breath Cardiovascular: chest pain (resolved this AM); No edema, No palpitations Gastrointestinal: no symptoms reported; No abdominal pain, No constipation, No diarrhea, No nausea, No vomiting Genitourinary: no symptoms reported; No dysuria, No frequency, No hematuria Musculoskeletal: no symptoms reported; No back pain, No joint pain, No muscle pain Skin: no symptoms reported; No lesions, No rash Psychiatric/Neurological: No Symptoms Reported; Denies Headache, Denies Numbness, Denies Weakness Reviewed Test Results Reviewed Test Results Lab Laboratory Tests Test 05/31/21 15:44 06/01/21 06:00 Range/Units Troponin I < 0.028 < 0.028 <0.028 NG/ML White Blood Count 8.0 4.3-11.0 10^3/uL Red Blood Count 4.78 4.30-5.52 10^6/uL Hemoglobin 11.2 L 13.3-17.7 g/dL Hematocrit 37 L 40-54 % Mean Corpuscular Volume 77 L 80-99 fL Mean Corpuscular Hemoglobin 23 L 25-34 pg Mean Corpuscular Hemoglobin Concent 30 L 32-36 g/dL Red Cell Distribution Width 15.3 H 10.0-14.5 % Platelet Count 253 130-400 10^3/uL Mean Platelet Volume 10.6 9.0-12.2 fL Immature Granulocyte % (Auto) 0 % Neutrophils (%) (Auto) 72 42-75 % Lymphocytes (%) (Auto) 20 12-44 % Monocytes (%) (Auto) 7 0-12 % Eosinophils (%) (Auto) 0 0-10 % Basophils (%) (Auto) 1 0-10 % Neutrophils # (Auto) 5.8 1.8-7.8 10^3/uL Lymphocytes # (Auto) 1.6 1.0-4.0 10^3/uL Monocytes # (Auto) 0.6 0.0-1.0 10^3/uL Eosinophils # (Auto) 0.0 0.0-0.3 10^3/uL Basophils # (Auto) 0.0 0.0-0.1 10^3/uL Immature Granulocyte # (Auto) 0.0 0.0-0.1 10^3/uL Sodium Level 138 135-145 MMOL/L Potassium Level 4.1 3.6-5.0 MMOL/L Chloride Level 104 98-107 MMOL/L Carbon Dioxide Level 23 21-32 MMOL/L Anion Gap 11 5-14 MMOL/L Blood Urea Nitrogen 20 H 7-18 MG/DL Creatinine 0.94 0.60-1.30 MG/DL Estimat Glomerular Filtration Rate 81 BUN/Creatinine Ratio 21 Glucose Level 127 H 70-105 MG/DL Calcium Level 9.3 8.5-10.1 MG/DL Triglycerides Level 121 <150 MG/DL Cholesterol Level 116 < 200 MG/DL LDL Cholesterol Direct 67 1-129 MG/DL VLDL Cholesterol 24 5-40 MG/DL HDL Cholesterol 33 L 40-60 MG/DL Physical Exam-(CHC) Physical Exam Vital Signs VS - Last 72 Hours, by Label 05/31/21 05/31/21 05/31/21 05/31/21 08:30 12:25 12:51 12:56 Temp 36.6 36.6 Pulse 75 62 61 Resp 18 18 22 B/P (MAP) 127/81 (96) 112/80 126/78 (94) Pulse Ox 99 99 99 100 O2 Delivery Room Air Room Air 05/31/21 05/31/21 05/31/21 05/31/21 13:11 13:26 13:34 13:41 Pulse 63 62 62 60 B/P (MAP) 127/79 (95) 115/74 (88) 118/74 (89) Pulse Ox 98 98 98 O2 Delivery Room Air Room Air Room Air 05/31/21 05/31/21 05/31/21 05/31/21 13:56 14:27 14:56 16:08 Temp 36.7 Pulse 66 65 66 61 Resp 18 B/P (MAP) 117/75 (89) 115/72 (86) 116/74 (88) 114/73 (87) Pulse Ox 99 97 100 98 O2 Delivery Room Air Room Air Room Air Room Air 05/31/21 05/31/21 05/31/21 05/31/21 19:00 20:05 20:10 23:31 Temp 36.8 36.6 Pulse 62 64 61 Resp 16 18 B/P (MAP) 125/71 (89) 117/98 (104) Pulse Ox 96 98 O2 Delivery Room Air Room Air Room Air 06/01/21 06/01/21 06/01/21 06/01/21 01:07 03:11 07:00 08:00 Temp 36.7 36.4 Pulse 62 60 60 68 Resp 18 18 B/P (MAP) 121/60 (80) 146/77 (100) Pulse Ox 97 99 O2 Delivery Room Air Room Air 06/01/21 06/01/21 06/01/21 08:00 09:00 12:00 Temp 35.8 Pulse 71 66 Resp 18 B/P (MAP) 136/90 (105) 123/66 (85) Pulse Ox 99 97 O2 Delivery Room Air Room Air Capillary Refill : Less Than 3 Seconds General Appearance: WD/WN, no apparent distress Neck: non-tender, full range of motion, supple Respiratory: chest non-tender, lungs clear, normal breath sounds, no respiratory distress, no accessory muscle use Cardiovascular: normal peripheral pulses, regular rate, rhythm, no edema, no murmur Gastrointestinal: normal bowel sounds, non tender, soft Back: no CVA tenderness, no vertebral tenderness Extremities: normal range of motion, non-tender, normal inspection, no pedal edema, no calf tenderness, normal capillary refill Neurologic/Psychiatric: coding analyst II-XII nml as tested, no motor/sensory deficits, alert, normal mood/affect, oriented x 3 Skin: normal color, warm/dry Lymphatic: no adenopathy Short Stay Diagnosis Discharge Diagnosis-Short Stay Admission Diagnosis Atypical Chest pain HTN HLD DMII Final Discharge Diagnosis See Above Conclusion Plan See plan below Problem List (1) Chest pain Qualifiers: Qualified Codes: R07.9 - Chest pain, unspecified Assessment & Plan: Exact etiology unclear. This has now resolved. He had negative troponin levels and he underwent a treadmill nuclear stress test that was normal. I suspect this may be noncardiac chest discomfort, possibly related to gastroesophageal reflux disease. I recommend he start taking his pantoprazole twice a day. I have ordered an echocardiogram to assess for any structural heart disease that could cause chest discomfort. He can probably need to be discharged home later today. I have asked him to follow-up with me in the office in 1 month. 06/01: Normal stress test, discussed keeping HTN and DM under control to decrease CV risk, continue ASA Status: Acute (2) Dyspnea on exertion Assessment & Plan: Etiology unclear. He is a lifelong non-smoker. His nuclear stress test was normal. I will have him undergo an echocardiogram later today. Status: Acute (3) Primary hypertension Assessment & Plan: Blood pressures appear reasonably well controlled with his normal outpatient medication. (4) Mixed hyperlipidemia Assessment & Plan: His lipid panel looks very well controlled on his blood work from this admission. Continue statin medication. (5) Overweight Assessment & Plan: He is trying to lose some weight. Clinical Quality Measures AMI/AHF: ASA po Prior to arrival: No Assessment/Plan Assessment/Plan Admission Status: Observation CRESENCIO GUTIERREZ MD Jun 01, 2021 14:22
--- NOTE | 2021-06-01 14:29 | Discharge Summary ---
Discharge [facility] Reconcile Patient Problems Problems Reviewed?: Yes Discharge Medications New, Converted or Re-Newed RX: Transmitted to Pharmacy New Medications: Pantoprazole Sodium (Pantoprazole Sodium) 40 Mg Tablet.dr 40 MG PO BID, #60 TAB 4 Refills Continued Medications: Atorvastatin Calcium (Atorvastatin Calcium) 20 Mg Tablet 20 MG PO DAILY Bupropion HCl (Bupropion Xl) 150 Mg Tab.er.24h 150 MG PO DAILY Diazepam (Diazepam) 5 Mg Tablet 5 MG PO DAILY PRN for ANXIETY Empagliflozin (Jardiance) 10 Mg Tablet 10 MG PO DAILY, TAB Fluoxetine HCl (Fluoxetine HCl) 40 Mg Capsule 40 MG PO DAILY Fluoxetine HCl (Fluoxetine HCl) 10 Mg Capsule 10 MG PO DAILY, CAP Glipizide (Glipizide ER) 10 Mg Tab.er.24 10 MG PO BID Irbesartan (Irbesartan) 150 Mg Tablet 150 MG PO DAILY Lamotrigine (Lamotrigine) 100 Mg Tablet 100 MG PO BID Metformin HCl (Metformin HCl) 1,000 Mg Tablet 1000 MG PO BID Polyvinyl Alcohol/Povidone/Pf (Refresh Classic Eye Drops) 1 Each Droperette 1 EACH OP DAILY, DROP Tramadol HCl (Tramadol HCl) 50 Mg Tablet 50 MG PO TID PRN for PAIN-MODERATE (5-7) Discontinued Medications: Diclofenac Sodium (Diclofenac Sodium) 75 Mg Tablet.dr 75 MG PO BID Pantoprazole Sodium (Pantoprazole Sodium) 40 Mg Tablet.dr 40 MG PO DAILY, TAB Patient Instructions Goal/Follow Up Appt: F/u 1 week with PCP Activity & Diet Discharge Diet: Cardiac Diet Activity as Tolerated: Yes CRESENCIO DUNBAR MD Jun 01, 2021 14:29
[2021-06-01 15:33] VITALS: BP 123/66
[2021-06-01] MEDS ORDERED: PANTOPRAZOLE 40 MG (PROTONIX) TAB PO SCH (21:00)
== END 2021-06-01 14:22 | disposition home or self-care (01) ==
LOC: EDUNIT# 08:22 → ER 08:24 → UNDOADMOB 11:29 → 4TH 11:29 → UNDODISOB 06-01 15:35
PROVIDERS: ADMIT Internal Medicine; ATTEND Internal Medicine
DX: R07.89 Other chest pain (principal); I10 Essential (primary) hypertension; E78.5 Hyperlipidemia, unspecified; E11.9 Type 2 diabetes mellitus without complications; E78.00 Pure hypercholesterolemia, unspecified; K21.9 Gastro-esophageal reflux disease without esophagitis; M19.90 Unspecified osteoarthritis, unspecified site; G89.29 Other chronic pain; M54.9 Dorsalgia, unspecified; F31.9 Bipolar disorder, unspecified; F41.9 Anxiety disorder, unspecified; Z79.84 Long term (current) use of oral hypoglycemic drugs; Z79.899 Other long term (current) drug therapy; Z90.89 Acquired absence of other organs; Z85.46 Personal history of malignant neoplasm of prostate; Z83.3 Family history of diabetes mellitus; Z82.3 Family history of stroke; Z80.42 Family history of malignant neoplasm of prostate
CPT/HCPCS: 71045; 78452; 80048; 80053; 80061; 83735; 83874; 83880; 84484 ×2; 85025 ×2; 85379; 85610; 85730; 86141; 87636; 93005 ×2; 93017; 93041; 93306; 96372; 96374; 99284; A9502; G0378; 36415

== ENCOUNTER 2021-06-10 13:16 | Outpatient (RCR) | payer MEDICARE, OTHER ==
[2021-06-03 10:52] LABS: BASOPHILS % (AUTO) 1 % (0-10); EOSINOPHILS % (AUTO) 0 % (0-10); HEMATOCRIT 37 % (40-54); HEMOGLOBIN 10.9 g/dL (13.3-17.7); LYMPHOCYTES # (AUTO) 1.4 10^3/uL (1.0-4.0); LYMPHOCYTES % (AUTO) 22 % (12-44); MEAN CORPUSCULAR HEMOGLOBIN 23 pg (25-34); MEAN CORPUSCULAR HGB CONC 30 g/dL (32-36); MEAN CORPUSCULAR VOLUME 78 fL (80-99); MEAN PLATELET VOLUME 10.2 fL (9.0-12.2); MONOCYTES # (AUTO) 0.5 10^3/uL (0.0-1.0); MONOCYTES % (AUTO) 8 % (0-12); NEUTROPHILS # (AUTO) 4.4 10^3/uL (1.8-7.8); NEUTROPHILS % (AUTO) 69 % (42-75); PLATELET COUNT 223 10^3/uL (130-400); WHITE BLOOD COUNT 6.4 10^3/uL (4.3-11.0)
[2021-06-03 11:16] LABS: ALBUMIN 4.1 GM/DL (3.2-4.5); BILIRUBIN,TOTAL 0.5 MG/DL (0.1-1.0); CALCIUM 9.4 MG/DL (8.5-10.1); CREATININE SERUM 0.97 MG/DL (0.60-1.30); POTASSIUM 4.3 MMOL/L (3.6-5.0); TOTAL PROTEIN 7.3 GM/DL (6.4-8.2)
[~2021-06-10 13:16] MED LIST changes: +ACET-2267 PO; +BUPR150T24 PO; +EMPA10TA PO; +FLUO10CA33 PO; +GLIP10TA24 PO; +IRBE150T23 PO; +POLY1DRO OP; +TRAM50TA3 PO
== END 2021-08-07 | disposition home or self-care (01) ==
LOC: ONC 13:16
PROVIDERS: ATTEND Internal Medicine Hematology & Oncology
DX: D50.0 Iron deficiency anemia secondary to blood loss (chronic) (principal); E11.21 Type 2 diabetes mellitus with diabetic nephropathy; I10 Essential (primary) hypertension; E66.9 Obesity, unspecified; Z68.30 Body mass index [BMI] 30.0-30.9, adult
CPT/HCPCS: 80053; 82728; 83540; 83550; 85025; 99213

== ENCOUNTER → 2021-07-22 | Outpatient (CLI) | payer MEDICARE, OTHER ==
--- NOTE | 2021-07-22 12:33 | Diagnostic Imaging Report ---
INDICATION: Dyspnea PA and lateral views of the chest obtained with comparison made to study of 12/18/2017 FINDINGS: Heart size and pulmonary vascularity are within normal limits, and the lungs are clear, bilaterally. IMPRESSION: Unremarkable chest. Dictated by: Dictated on workstation # [id number]
== END ==
LOC: RAD 11:41
PROVIDERS: ATTEND Internal Medicine Cardiovascular Disease
DX: R06.00 Dyspnea, unspecified (principal)
CPT/HCPCS: 71046

== ENCOUNTER → 2021-07-29 | Outpatient (CLI) | payer MEDICARE, OTHER ==
[~2021-07-29] MED LIST changes: +RT-ALBUTEROL SULF 2.5 MG/3 ML PRE-MIX VIAL INH ONE
== END ==
LOC: RT 10:45
PROVIDERS: ATTEND Internal Medicine Cardiovascular Disease
DX: R06.09 Other forms of dyspnea (principal)
CPT/HCPCS: 94060; 94621; 94726; 94729

== ENCOUNTER 2021-08-31 09:39 | Outpatient (RCR) | payer MEDICARE, OTHER ==
[2021-08-26 09:14] LABS: MEAN CORPUSCULAR HGB CONC 31 g/dL (32-36)
[2021-08-26 09:16] LABS: BASOPHILS % (AUTO) 1 % (0-10); EOSINOPHILS % (AUTO) 0 % (0-10); HEMATOCRIT 48 % (40-54); LYMPHOCYTES # (AUTO) 1.3 10^3/uL (1.0-4.0); LYMPHOCYTES % (AUTO) 21 % (12-44); MEAN CORPUSCULAR HEMOGLOBIN 26 pg (25-34); MEAN CORPUSCULAR VOLUME 82 fL (80-99); MONOCYTES # (AUTO) 0.4 10^3/uL (0.0-1.0); MONOCYTES % (AUTO) 7 % (0-12); NEUTROPHILS # (AUTO) 4.3 10^3/uL (1.8-7.8); NEUTROPHILS % (AUTO) 71 % (42-75); PLATELET COUNT 182 10^3/uL (130-400); WHITE BLOOD COUNT 6.1 10^3/uL (4.3-11.0)
[2021-08-26 09:24] LABS: ALBUMIN 4.1 GM/DL (3.2-4.5); BILIRUBIN,TOTAL 0.3 MG/DL (0.1-1.0); CALCIUM 9.5 MG/DL (8.5-10.1); CREATININE SERUM 0.99 MG/DL (0.60-1.30); POTASSIUM 4.3 MMOL/L (3.6-5.0); TOTAL PROTEIN 7.5 GM/DL (6.4-8.2)
[~2021-08-31 09:39] MED LIST changes: -RT-ALBUTEROL SULF 2.5 MG/3 ML PRE-MIX VIAL INH ONE
== END 2021-09-07 | disposition home or self-care (01) ==
LOC: ONC 09:39
PROVIDERS: ATTEND Internal Medicine Hematology & Oncology
DX: D50.8 Other iron deficiency anemias (principal); C61 Malignant neoplasm of prostate; K21.9 Gastro-esophageal reflux disease without esophagitis; K44.9 Diaphragmatic hernia without obstruction or gangrene; E11.9 Type 2 diabetes mellitus without complications; I10 Essential (primary) hypertension; E66.9 Obesity, unspecified; K76.0 Fatty (change of) liver, not elsewhere classified; K29.50 Unspecified chronic gastritis without bleeding; Z90.79 Acquired absence of other genital organ(s); Z68.31 Body mass index [BMI] 31.0-31.9, adult
CPT/HCPCS: 80053; 82728; 83540; 83550; 85025; 99213

== ENCOUNTER 2021-12-01 13:02 | Outpatient (RCR) | payer MEDICARE, OTHER ==
[2021-12-01 13:11] LABS: BASOPHILS % (AUTO) 1 % (0-10); EOSINOPHILS # (AUTO) 0.2 10^3/uL (0.0-0.3); EOSINOPHILS % (AUTO) 3 % (0-10); HEMATOCRIT 41 % (40-54); HEMOGLOBIN 12.9 g/dL (13.3-17.7); LYMPHOCYTES # (AUTO) 1.3 10^3/uL (1.0-4.0); LYMPHOCYTES % (AUTO) 20 % (12-44); MEAN CORPUSCULAR HEMOGLOBIN 27 pg (25-34); MEAN CORPUSCULAR HGB CONC 32 g/dL (32-36); MEAN CORPUSCULAR VOLUME 85 fL (80-99); MEAN PLATELET VOLUME 10.8 fL (9.0-12.2); MONOCYTES # (AUTO) 0.5 10^3/uL (0.0-1.0); MONOCYTES % (AUTO) 8 % (0-12); NEUTROPHILS # (AUTO) 4.5 10^3/uL (1.8-7.8); NEUTROPHILS % (AUTO) 68 % (42-75); PLATELET COUNT 223 10^3/uL (130-400); WHITE BLOOD COUNT 6.5 10^3/uL (4.3-11.0)
[2021-12-01 13:37] LABS: BILIRUBIN,TOTAL 0.4 MG/DL (0.1-1.0); CALCIUM 9.4 MG/DL (8.5-10.1); CREATININE SERUM 0.98 MG/DL (0.60-1.30); POTASSIUM 4.1 MMOL/L (3.6-5.0); TOTAL PROTEIN 7.1 GM/DL (6.4-8.2)
== END 2021-12-05 | disposition home or self-care (01) ==
LOC: ONC 13:02
PROVIDERS: ATTEND Internal Medicine Hematology & Oncology
DX: D50.8 Other iron deficiency anemias (principal); C61 Malignant neoplasm of prostate; K21.9 Gastro-esophageal reflux disease without esophagitis; K44.9 Diaphragmatic hernia without obstruction or gangrene; E11.9 Type 2 diabetes mellitus without complications; I10 Essential (primary) hypertension; E66.9 Obesity, unspecified; K76.0 Fatty (change of) liver, not elsewhere classified; K29.50 Unspecified chronic gastritis without bleeding; Z90.79 Acquired absence of other genital organ(s); Z68.31 Body mass index [BMI] 31.0-31.9, adult
CPT/HCPCS: 36415; 80053; 82728; 83540; 83550; 85025

== ENCOUNTER 2021-12-07 09:30 | Outpatient (RCR) | payer MEDICARE, OTHER | END 2022-01-05 | disposition home or self-care (01) | LOC: ONC 09:30 | PROVIDERS: ATTEND Internal Medicine Hematology & Oncology | DX: D50.8 Other iron deficiency anemias (principal); C61 Malignant neoplasm of prostate; K21.9 Gastro-esophageal reflux disease without esophagitis; K44.9 Diaphragmatic hernia without obstruction or gangrene; E11.9 Type 2 diabetes mellitus without complications; I10 Essential (primary) hypertension; E66.9 Obesity, unspecified; K76.0 Fatty (change of) liver, not elsewhere classified; K29.50 Unspecified chronic gastritis without bleeding; Z90.79 Acquired absence of other genital organ(s); Z68.31 Body mass index [BMI] 31.0-31.9, adult | CPT/HCPCS: 99213 ==

== ENCOUNTER 2022-03-11 08:44 | Outpatient (RCR) | payer MEDICARE, OTHER ==
[2022-03-08 10:44] LABS: BASOPHILS % (AUTO) 1 % (0-10); EOSINOPHILS # (AUTO) 0.2 10^3/uL (0.0-0.3); EOSINOPHILS % (AUTO) 3 % (0-10); HEMATOCRIT 40 % (40-54); HEMOGLOBIN 12.8 g/dL (13.3-17.7); LYMPHOCYTES # (AUTO) 1.5 10^3/uL (1.0-4.0); LYMPHOCYTES % (AUTO) 25 % (12-44); MEAN CORPUSCULAR HEMOGLOBIN 25 pg (25-34); MEAN CORPUSCULAR HGB CONC 32 g/dL (32-36); MEAN CORPUSCULAR VOLUME 77 fL (80-99); MEAN PLATELET VOLUME 11.5 fL (9.0-12.2); MONOCYTES # (AUTO) 0.4 10^3/uL (0.0-1.0); MONOCYTES % (AUTO) 7 % (0-12); NEUTROPHILS # (AUTO) 3.7 10^3/uL (1.8-7.8); NEUTROPHILS % (AUTO) 64 % (42-75); PLATELET COUNT 210 10^3/uL (130-400); WHITE BLOOD COUNT 5.8 10^3/uL (4.3-11.0)
[2022-03-08 11:00] LABS: ALBUMIN 3.9 GM/DL (3.2-4.5); BILIRUBIN,TOTAL 0.3 MG/DL (0.1-1.0); CALCIUM 8.9 MG/DL (8.5-10.1); CREATININE SERUM 1.19 MG/DL (0.60-1.30); POTASSIUM 4.2 MMOL/L (3.6-5.0); TOTAL PROTEIN 6.9 GM/DL (6.4-8.2)
== END 2022-04-07 | disposition home or self-care (01) ==
LOC: ONC 08:44
PROVIDERS: ATTEND Internal Medicine Hematology & Oncology
DX: D50.8 Other iron deficiency anemias (principal); C61 Malignant neoplasm of prostate; K21.9 Gastro-esophageal reflux disease without esophagitis; K44.9 Diaphragmatic hernia without obstruction or gangrene; E11.9 Type 2 diabetes mellitus without complications; I10 Essential (primary) hypertension; E66.9 Obesity, unspecified; K76.0 Fatty (change of) liver, not elsewhere classified; K29.50 Unspecified chronic gastritis without bleeding; Z90.79 Acquired absence of other genital organ(s); Z68.31 Body mass index [BMI] 31.0-31.9, adult
CPT/HCPCS: 36415; 80053; 82728; 83540; 83550; 85025; 99213

== ENCOUNTER 2022-09-20 09:35 | Outpatient (RCR) | payer MEDICARE, OTHER ==
[2022-09-09 09:57] LABS: BASOPHILS # (AUTO) 0.1 10^3/uL (0.0-0.1); BASOPHILS % (AUTO) 1 % (0-10); EOSINOPHILS % (AUTO) 0 % (0-10); HEMATOCRIT 45 % (40-54); HEMOGLOBIN 14.3 g/dL (13.3-17.7); LYMPHOCYTES # (AUTO) 1.5 10^3/uL (1.0-4.0); LYMPHOCYTES % (AUTO) 21 % (12-44); MEAN CORPUSCULAR HEMOGLOBIN 27 pg (25-34); MEAN CORPUSCULAR HGB CONC 32 g/dL (32-36); MEAN CORPUSCULAR VOLUME 85 fL (80-99); MEAN PLATELET VOLUME 10.6 fL (9.0-12.2); MONOCYTES # (AUTO) 0.6 10^3/uL (0.0-1.0); MONOCYTES % (AUTO) 8 % (0-12); NEUTROPHILS # (AUTO) 5.2 10^3/uL (1.8-7.8); NEUTROPHILS % (AUTO) 71 % (42-75); PLATELET COUNT 205 10^3/uL (130-400); WHITE BLOOD COUNT 7.4 10^3/uL (4.3-11.0)
[2022-09-09 10:11] LABS: ALBUMIN 4.1 GM/DL (3.2-4.5); BILIRUBIN,TOTAL 0.6 MG/DL (0.1-1.0); CALCIUM 9.2 MG/DL (8.5-10.1); TOTAL PROTEIN 7.3 GM/DL (6.4-8.2)
== END 2022-10-05 | disposition home or self-care (01) ==
LOC: ONC 09:35
PROVIDERS: ATTEND Internal Medicine Hematology & Oncology
DX: D50.8 Other iron deficiency anemias (principal); C61 Malignant neoplasm of prostate; K44.9 Diaphragmatic hernia without obstruction or gangrene; E11.9 Type 2 diabetes mellitus without complications; I10 Essential (primary) hypertension; E66.9 Obesity, unspecified; K76.0 Fatty (change of) liver, not elsewhere classified; K21.01 Gastro-esophageal reflux disease with esophagitis, with bleeding; K29.50 Unspecified chronic gastritis without bleeding; Z90.79 Acquired absence of other genital organ(s); Z68.31 Body mass index [BMI] 31.0-31.9, adult
CPT/HCPCS: 36415; 80053; 82728; 83540; 83550; 85025

== ENCOUNTER 2022-11-25 11:06 | Outpatient (RCR) | payer MEDICARE, OTHER | END 2022-12-05 | disposition home or self-care (01) | LOC: ONC 11:06 | PROVIDERS: ATTEND Internal Medicine Hematology & Oncology | DX: D50.8 Other iron deficiency anemias (principal); C61 Malignant neoplasm of prostate; K44.9 Diaphragmatic hernia without obstruction or gangrene; E11.9 Type 2 diabetes mellitus without complications; I10 Essential (primary) hypertension; E66.9 Obesity, unspecified; K76.0 Fatty (change of) liver, not elsewhere classified; K21.01 Gastro-esophageal reflux disease with esophagitis, with bleeding; K29.50 Unspecified chronic gastritis without bleeding; Z90.79 Acquired absence of other genital organ(s) | CPT/HCPCS: 84153 ==